=== PATIENT | female | born 1930 | race Caucasian/White ===

== ENCOUNTER 2019-06-10 08:50 | Inpatient (IN) | payer MEDICARE ==
[2019-06-10 13:16] LABS: Basophils % (A) 0 %; Eosinophils # (A) 0.4 k/uL (0-0.7); Eosinophils % (A) 4 %; HCT 36.6 % (34.0-46.0); Lymphocytes # (A) 0.7 k/uL (1.0-4.8); Lymphocytes % (A) 9 %; MCH 30.8 pg (25.0-35.0); MCHC 32.9 g/dL (31.0-37.0); MCV 93.7 fL (80.0-100.0); Monocytes # (A) 0.5 k/uL (0-1.0); Monocytes % (A) 6 %; Neutrophils # (A) 6.9 k/uL (1.3-7.7); Neutrophils % (A) 79 %; Platelet Count 241 k/uL (150-450); RBC 3.91 m/uL (3.80-5.40); RDW 14.7 % (11.5-15.5); WBC 8.7 k/uL (3.8-10.6)
[2019-06-10 13:16] LABS: Glucose,Whole Blood 161 mg/dL (75-99)
[2019-06-10 13:23] LABS: Albumin 3.2 g/dL (3.5-5.0); Calcium 9.1 mg/dL (8.4-10.2); Potassium 4.9 mmol/L (3.5-5.1); Total Bilirubin 0.8 mg/dL (0.2-1.3); Total Protein 5.9 g/dL (6.3-8.2)
--- NOTE | 2019-06-10 13:35 | CT ---
EXAMINATION TYPE: CODE STROKE: CT brain wo contrast DATE OF EXAM: 06/10/2019 COMPARISON: 04/07/2010 INDICATION: Lt sided weakness DLP: 1099.4 mGycm, Automated exposure control for dose reduction was used. CONTRAST: None CT of the brain is performed utilizing 3 mm thick sections through the posterior fossa and 3 mm thick sections through the remaining calvarium. Study is performed within 24 hours of arrival to the hosp [facility]. No abnormal hyperdensity is present to suggest an acute intracranial hemorrhage. No mass lesion is evident. No acute infarcts are evident. There is patchy periventricular white matter hypodensity, likely on th e basis of chronic white matter ischemic change. Ventricles and sulci are prominent for the patient age. Paranasal sinuses and mastoid air cells within the ctkeh-mb-axry are clear. IMPRESSIONS: 1. Atrophy with periventricular white matter ischemic type changes. 2. If symptoms persist, MRI could be performed.
--- NOTE | 2019-06-10 13:53 | P.HPIM ---
History of Present Illness H&P Date: 06/10/19 Chief Complaint: Episodes of Unresponsivness Flory Sims is an 88-year-old female resident of a [place] [facility] care [facility] who was admitted to [facility] with febrile illness, urinary tract infection, dehydration with acute renal failure, and mental status changes, patient was treated with IV Rocephin and IV fluid and she improved significantly however few days ago patient had an episode of unresponsiveness, that lasted several hours patient was not responding to any stimuli including chest rubs, computed tomography scan of the brain was done and did not reveal any significant abnormality, EEG was not done due to lack of neurology coverage at [facility]. Yesterday patient had a second similar episode where patient was an responsive for several hours we try to obtain an EEG however that was not done, at that time patient was started on Keppra due possibility of seizure activity was prolonged postictal state, however no seizure activity was witnessed by any staff. Patient has a known history of diabetes mellitus maintained on glipizide however glucose level was checked several times during these episodes and was within normal limits if not slightly elevated. Today it was possible to transfer her to [facility] where there is an neurologist pre certification specialist. Medications and Allergies Home Medications Medication Instructions Recorded Confirmed Type Acetaminophen [Tylenol] 500 mg PO Q6H PRN 06/10/19 06/10/19 History Aspirin 325 mg PO DAILY 06/10/19 06/10/19 History Furosemide [Lasix] 20 mg PO DAILY 06/10/19 06/10/19 History INSULIN LISPRO (HumaLOG) [humaLOG] See Protocol SQ ACHS 06/10/19 06/10/19 History Ondansetron HCl [Zofran] 8 mg PO TID PRN 06/10/19 06/10/19 History Potassium Chloride [Klor-Con 20] 20 meq PO BID 06/10/19 06/10/19 History Pravastatin Sodium [Pravachol] 40 mg PO DAILY 06/10/19 06/10/19 History cefTRIAXone [Rocephin] 1 gm IV DAILY 06/10/19 06/10/19 History glipiZIDE [Glucotrol] 5 mg PO BID 06/10/19 06/10/19 History hydrALAZINE HCL [Apresoline] 25 mg PO Q8H 06/10/19 06/10/19 History valACYclovir [Valtrex] 500 mg PO Q12H 06/10/19 06/10/19 History Allergies Allergy/AdvReac Type Severity Reaction Status Date / Time No Known Allergies Allergy Verified 06/10/19 12:24 Physical Exam Vitals: Vital Signs Temp Pulse Resp BP Pulse Ox 06/10/19 12:15 98.3 F 96 16 168/72 98 Intake and Output 06/09/19 06/10/19 06/10/19 22:59 06:59 14:59 Other: Weight 63.9 kg In general patient is alert confused in no apparent distress HEENT head normocephalic and atraumatic Neck is supple no JVD no goiter no lymphadenopathy Chest exam reveals a few scattered rhonchi no wheezing Cardiac exam reveals regular heart sounds S1 and S2 no gallops no murmurs Abdomen is soft nontender no organomegaly with normal bowel sounds Extremity exam reveals no edema no cyanosis or clubbing Neurological examination reveals confusion otherwise no gross focal neurological deficit Results CBC & Chem 7: 06/10/19 12:49 06/10/19 12:49 Labs: Abnormal Lab Results - Last 24 Hours (Table) 06/10/19 06/10/19 06/10/19 Range/Units 12:49 12:49 13:13 Lymphocytes # 0.7 L (1.0-4.8) k/uL Glucose 167 H (74-99) mg/dL POC Glucose (mg/dL) 161 H (75-99) mg/dL Total Protein 5.9 L (6.3-8.2) g/dL Albumin 3.2 L (3.5-5.0) g/dL Assessment and Plan Plan: #1 Two prolonged episodes of unresponsiveness lasting several hours each episode, patient is transferred to [facility] will obtain computed tomography scan of the brain and EEG Will consult neurology #2 admitted to [facility] was urinary tract infection Will continue IV Rocephin and recheck urine analysis #3 acute kidney injury improved, kidney function is back to normal with BUN at 10 creatinine at 0.88 #4 underlying history of diabetes mellitus maintained on glipizide, without any recorded episodes of hypoglycemia especially during episodes of unresponsiveness #5 underlying history of hypertension will resume medications and monitor blood pressure closely #6 underlying history of hyperlipidemia At this time awaiting EEG and neurology input Will resume medications and follow closely Recheck urine analysis
[2019-06-10 13:55] LABS: Partial Thromboplastin Time 22.1 sec (22.0-30.0); Prothrombin Time 10.7 sec (9.0-12.0)
[2019-06-10] MEDS ORDERED: ASPIRIN 325 MG TAB PO STA (13:59)
[2019-06-10 14:03] LABS: Creatine Kinase 23 U/L (30-135)
[2019-06-10 14:15] LABS: Creatine Kinase MB 0.7 ng/mL (0.0-2.4); Troponin I <0.012 ng/mL (0.000-0.034)
[2019-06-10] MEDS ORDERED: ONDANSETRON ODT 8 MG TAB.RAPDIS PO PRN (14:41)
[2019-06-10] MEDS ORDERED: ACETAMINOPHEN TAB 500 MG TAB PO PRN (14:41)
[2019-06-10] MEDS ORDERED: cefTRIAXone 1 GM VIAL IVPB SCH (14:45)
[2019-06-10] MEDS ORDERED: hydrALAZINE HCL 20 MG/ML 1 ML VIAL IVP PRN (15:23)
--- NOTE | 2019-06-10 16:16 | EEG ---
ELECTROENCEPHALOGRAM REPORT DATE OF SERVICE: 06/10/2019. DATE OF ADMISSION: 06/10/2019. HISTORY: This is an 88-year-old female who was admitted by transfer from an outside hospital for possible seizures and stroke. The patient was initially admitted for urosepsis but then had altered mental status and was found today to have decreased movement on the right side of her body. Patient was transferred to high level care. The CT scan of the head shows evidence of a meningioma involving the right frontal lobe. No other history is provided. This patient was activated as a Code-stroke due to her symptoms. TECHNICAL REPORT: This is an inpatient EEG performed the [employer] EEG monitor with electrodes placed according to the international 10-20 system and a single EKG channel. Simultaneous video EEG monitoring was performed. This EEG was reviewed in both the longitudinal bipolar, average differential and transverse montages. Hyperventilation was not performed. Photic stimulation was performed. The study begins with the patient having excessive muscle artifact lateralized through the bifrontal electrode placement. The background consists of a low amplitude, low modulated 9 Hz alpha rhythm reaching maximum frequencies at the 10 Hz. At times, excessive generalized beta activity appears superimposed over the background. Increased muscle artifact is also noted with eye opening. Photic stimulation was performed at various flash frequencies and failed to elicit a consistent driving response. At 14:19:27 immediately after photic stimulation, the background becomes attenuated and the frequencies decrease to a theta range of 6 to 7 Hz. This occurs abruptly. Following this at 14:25:31, there is acute abrupt arousal associated with increased motion and movement artifact. Following this, the patient transitions into brief stage 2 sleep which lasts for 34 seconds. This is associated with a further attenuation of the background rhythm, the appearance of increased beta activity anteriorly and centrally and the appearance of synchronous sleep spindles. Stage 2 sleep was brief followed by a return to stage 1 sleep for several minutes followed by abrupt arousal associated with motion movement artifact. Deeper stages of sleep such as slow-wave sleep and rapid eye movement sleep were not achieved. IMPRESSION: This is a normal wake, drowsy and pre-stage 2 EEG study. No abnormalities were noted in the EKG or during photic stimulation. The wake background appears normal for this patient's staged age and the brief sleep noted appeared normal sleep architecture for stage 2 sleep and stage 1 sleep. A normal wake sleep EEG; however, does not rule out an underlying seizure tendency. Correlations are needed and if clinically indicated, a more prolonged overnight study could provide additional information and/or serial EEGs. MMODL / IJN: [id number] /
[2019-06-10] MEDS: hydrALAZINE HCL 25 MG TAB PO SCH ×2 (16:29→23:14)
[2019-06-10] MEDS: SODIUM CHLORIDE 0.9% 1,000 ML IV SCH (16:36)
[2019-06-10] MEDS: levETIRAcetam IV 500 MG in SODIUM CHLORIDE 0.9% 100 ML IVPB SCH (16:37)
[2019-06-10 17:43] LABS: Glucose,Whole Blood 142 mg/dL (75-99)
[2019-06-10] MEDS: INSULIN ASPART (NovoLOG) 100 UNIT/ML VIAL SQ SCH ×2 (18:28→20:38)
--- NOTE | 2019-06-10 19:18 | MR ---
EXAMINATION TYPE: MR brain wo con DATE OF EXAM: 06/10/2019 COMPARISON: Correlation CT 06/10/2019. Old CT 04/07/2010. HISTORY: 88-year-old female CODE STROKE TECHNIQUE: Multiplanar, multisequence images of the brain and brainstem were acquired without IV con trast. Diffusion weighted imaging is performed. FINDINGS: No evidence for acute infarction, hemorrhage, mass effect, midline shift, herniation, effacement of b dajuan cisterns, or extra-axial fluid collection. A 9 mm hypointense extra-axial lesion left paramedian superior convexity corresponds to a calcified e xtra-axial lesion on CT most suggestive of a meningioma. Mild supratentorial volume loss. Secondary mild prominence to the ventricular system. Dominant left vertebral artery. Prominent arachnoid granulations along the posterior cranial fossa. T2/FLAIR weighted sequences show severe confluent right white matter change in both cerebral hemisphe res and also within the mitch. Midline structures demonstrate normal morphology. The craniocervical j unction is normal. Scattered mild mucosal thickening left ethmoid air cells. Globes are intact. IMPRESSION: 1. No acute intracranial abnormality seen. 2. Mild generalized atrophy and severe confluent changes of chronic small vessel ischemic disease. 3. A 9 mm calcified extra-axial lesion along the left paramedian superior convexity suggestive of a s mall meningioma, present back on the 04/07/2010 CT as well.
--- NOTE | 2019-06-10 19:28 | MR ---
EXAMINATION TYPE: MR angio head/neck wo con DATE OF EXAM: 06/10/2019 COMPARISON: Correlation MRI brain same day HISTORY: 88-year-old female CODE STROKE TECHNIQUE: High-resolution 3-D bnih-gl-jizlnk imaging of the [place]. Rotational 3-D reconst ructions generated on a dedicated workstation. Additional 2-D and 3-D jpdq-wy-waxpsu imaging of the c arotid vessels of the neck with 3-D reconstructions. FINDINGS: HEAD: Dominant left vertebral artery. Otherwise, the vertebral and basilar arteries appear patent. Persistent origin right posterior cerebral artery with a hypoplastic P1 segment. Internal carotid arteries are patent. Remainder of the anterior circulation is patent without signifi cant stenosis. No aneurysmal change. NECK: Conventional arch was a branching anatomy. Dominant left vertebral artery. Satisfactory flow related enhancement of both vertebral arteries. Tortuous lower right common carotid artery with retropharyngeal course. Satisfactory flow related within the right common carotid artery. There is some loss of flow-related enhancement at the cervical cranial junction of the right internal carotid artery. Otherwise, remainder of the right internal carotid artery appears patent. Satisfactory flow related enhancement left common carotid artery. There may be mild, less than 40% narrowing within the left carotid bulb. Is seen on the contralateral side, there is focal loss of flow related enhancement at the cervical cr anial junction of the left ICA, refer to series 501 axial images 89 through 92. IMPRESSION: 1. Head: Dominant left vertebral artery. 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 No large vessel intracranial arterial occlusion, significant stenosis, or aneurysmal change see n. 2. Neck: Focal loss of flow related enhancement within the bilateral ICAs at the cervical cranial lucretia ctions. Given the symmetry, skull base artifact is favored over focal severe stenoses. Thin cut CT an giography may be helpful to further evaluate. Otherwise, dominant left vertebral artery. Mild, less t epstein 50% stenosis left carotid bulb.
[2019-06-10 20:20] LABS: Glucose,Whole Blood 171 mg/dL (75-99)
[2019-06-10] MEDS: valACYclovir 500 MG TAB PO SCH (20:44)
[2019-06-10] MEDS: POTASSIUM CHLORIDE ER 20 MEQ TAB.ER PO SCH (20:44)
--- NOTE | 2019-06-10 21:36 | P.CNNES ---
History of Present Illness Consult date: 06/10/19 Reason for Consult: 2 episodes of altered mental status at outside hospital. History of Present Illness: This is a new neurology consult requested for further advice recommendations for a 8-year-old female who was hospitalized at the [facility] last several days for fever UTI and acute kidney injury. She [facility] from [facility] where [facility] and had mental status changes described with her illness. She appeared to improve when she received IV fluids and Rocephin but 48 hours prior to admission she had an episode where she was reported to become unresponsive for several hours but would not even respond to any deep sternal rub in the hospital. A computed tomography scan of the head was obtained which did not show any evidence of an acute ischemic infarct. Request for EEG was made with an outside neurology service however this was not able to take place. Then the day prior to admission the patient had a second episode again of unresponsiveness for several hours as reported. She was started on Keppra with the assumption this could be subclinical seizure activity. During this event was documented at the patient's glucose was normal. Due to there not being availability for neurology on site the patient was transferred to a higher level of care. When the patient arrived she was back to her baseline but there was some concern with the staff that her left side appeared weaker than her right. A code stroke was initiated in the following workup is available now: 1. MRI of the brain did not show any evidence of acute ischemic or hemorrhagic infarct. No intracranial brain mass lesions. There is significant white matter ischemic changes noted. MRA of the brain does not show any evidence of high-grade stenosis only a dominant left vertebral artery. The MRA of the neck shows mild less than 50% stenosis of the left carotid bulb. There does appear to be some focal loss of blood flow with relative enhancement described in the bilateral ICAs cervical junction. This is thought to be artifact versus severe stenosis. However in my opinion a CTA would be warranted if there was concern for high-grade stenosis. The patient also has obtained now EEG since her admission this was interpreted to be a normal wake and very brief drowsy study. No epileptiform activity was noted. A normal wake drowsy EEG however does not preclude an underlying seizure tendency. At the time of this evaluation the patient appears clinically stable with an NIH stroke scale of 1 with some mild weakness noted in the left upper extremity. Review of Systems A 10 point review of systems was obtained with positive pertinent negatives related to history of present illness. At this time is evaluation however the patient was not a very good historian and could not provide much to detail questions she was quite tired. Past Medical History Past Medical History: Diabetes Mellitus, Hypertension, Osteoarthritis (OA), Renal Disease History of Any Multi-Drug Resistant Organisms: Unobtainable Past Surgical History: Hysterectomy Additional Past Surgical History / Comment(s): Back surgery, abdominal surgery Past Anesthesia/Blood Transfusion Reactions: Unable to Obtain Past Psychological History: Unable to Obtain Smoking Status: Unknown if ever smoked - Past Family History Father History Unknown: Yes Mother History Unknown: Yes Medications and Allergies Home Medications Medication Instructions Recorded Confirmed Type Acetaminophen [Tylenol] 500 mg PO Q6H PRN 06/10/19 06/10/19 History Aspirin 325 mg PO DAILY 06/10/19 06/10/19 History Furosemide [Lasix] 20 mg PO DAILY 06/10/19 06/10/19 History INSULIN LISPRO (HumaLOG) [humaLOG] See Protocol SQ ACHS 06/10/19 06/10/19 History Ondansetron HCl [Zofran] 8 mg PO TID PRN 06/10/19 06/10/19 History Potassium Chloride [Klor-Con 20] 20 meq PO BID 06/10/19 06/10/19 History Pravastatin Sodium [Pravachol] 40 mg PO DAILY 06/10/19 06/10/19 History cefTRIAXone [Rocephin] 1 gm IV DAILY 06/10/19 06/10/19 History glipiZIDE [Glucotrol] 5 mg PO BID 06/10/19 06/10/19 History hydrALAZINE HCL [Apresoline] 25 mg PO Q8H 06/10/19 06/10/19 History valACYclovir [Valtrex] 500 mg PO Q12H 06/10/19 06/10/19 History Allergies Allergy/AdvReac Type Severity Reaction Status Date / Time No Known Allergies Allergy Verified 06/10/19 12:24 Physical Examination - Vital Signs Vital Signs: Vital Signs Temp Pulse Pulse Resp BP BP Pulse Ox 06/10/19 20:00 98.4 F 71 18 180/78 99 06/10/19 16:00 98.8 F 87 16 193/89 96 06/10/19 14:55 97.8 F 98 16 178/79 98 06/10/19 14:40 97.8 F 99 16 170/77 98 06/10/19 14:25 97.7 F 76 16 166/72 98 06/10/19 14:10 98.7 F 89 16 183/72 98 06/10/19 13:55 98.6 F 87 16 165/76 98 06/10/19 13:40 98.6 F 98 16 159/76 98 06/10/19 13:25 98.6 F 95 16 164/70 98 06/10/19 13:10 98.6 F 90 16 182/73 98 06/10/19 13:05 96 06/10/19 12:15 98.3 F 96 16 168/72 98 Intake and Output 06/10/19 06/10/19 06/10/19 06:59 14:59 22:59 Intake Total 330 Balance 330 Intake: IV 210 Invasive Line 1 10 Sodium Chloride 0.9% 1, 200 000 ml @ 50 mls/hr IV . Q20H NATALYA Rx#:[id number] Oral 120 Other: Voiding Method Diaper Diaper Incontinent Incontinent # Voids 2 Weight 63.9 kg Examination was somewhat limited due to isolation contact. General appearance: Alert well-nourished no apparent distress. H ENT: Clear sclera clear oropharynx neck appears supple. Extremities: No edema noted in the hands or feet. Skin: No rash bruising or petechia noted. There are some herpetic lesions across the chest though. Neurological exam Patient mental status patient is awake alert she is oriented to month age. Her speech is fluent. Her affect appears appropriate. Cranial nerve examination: Extraocular movements are full. There is no nystagmus noted on vertical horizontal gaze. Face appears symmetric. Palate elevates symmetrically. Cranial nerve VIII appears intact by clinical observation. Motor examination patient is able to move all 4 extremities equally. She is so mewhat weak generally generalized. Patient gives good effort with -5 over 5 strength throughout. Pronator drift is negative. No fasciculations or tremor noted. Deep tendon reflexes deferred. Sensory examination grossly intact to light touch throughout. Coordination testing: Isyjkx-sj-mbpb testing is intact. Gait examination deferred. Results - Laboratory Findings CBC and BMP: 06/10/19 12:49 06/10/19 12:49 Abnormal Lab Findings: Abnormal Labs 06/10/19 06/10/19 06/10/19 12:49 12:49 13:13 Lymphocytes # 0.7 L Glucose 167 H POC Glucose (mg/dL) 161 H Total Creatine Kinase Total Protein 5.9 L Albumin 3.2 L Prolactin 06/10/19 06/10/19 06/10/19 13:30 13:30 17:41 Lymphocytes # Glucose POC Glucose (mg/dL) 142 H Total Creatine Kinase 23 L Total Protein Albumin Prolactin 47.9 H 06/10/19 20:18 Lymphocytes # Glucose POC Glucose (mg/dL) 171 H Total Creatine Kinase Total Protein Albumin Prolactin - Diagnostic Findings EKG: report reviewed Chest x-ray: report reviewed Additional findings: Computed tomography scan of the head. EEG. MRI of the brain and MRA of the head and neck reviewed. Assessment and Plan Assessment: This is a neurology consult requested for an 88-year-old female who was transferred in from [facility] for higher level of neurological care. The patient was admitted with fever urinary tract infection acute herpetic outbreak and mental status changes. She apparently was improving while on Rocephin and fluids but had 2 bouts of prolonged unresponsiveness 48 hours prior to admission. The patient was started on Keppra empirically in the event they were subclinical seizures. Today her workup reveals a negative computed tomography scan of the head and MRI of the brain for any acute ischemic or hemorrhagic infarct or structural mass lesion. The MRA of the head does show focal loss of flow in relative with enhancement within the bilateral intracranial arteries. However there is concern this could be artifact but not completely ruled out. The MRA of the neck does not show any evidence of high- grade stenosis. 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 Examination today reveals a pleasant female who is alert and oriented to time place and person. She is somewhat weak but this may be in proportion to her her age. There is no clear focal weakness noted at this time. The episodes of prolonged unresponsiveness could be cardiac related to atrial fibrillation. I do not see nothing specific in the notes regarding Holter monitor assessment. I would be recommending a full cardiology workup for this female with these questionable syncopal episodes. In addition with an active herpetic infection she could be running the risk of developing a herpetic encephalitis. This should be further evaluated with an LP if another episode occurs and she becomes febrile again. Summary 1. Elderly female with fever or UTI acute kidney injury and mental status changes initially improving but then developing 2 episodes of prolonged altered mental status of unclear etiology. 2. Neuro imaging studies do not show any evidence of acute ischemic or subacute infarct. 3. MRA of the brain reveals no evidence of high-grade stenosis. 4. MRA of the neck however does show some focal loss of flow with relative enhancement within the bilateral internal carotid arteries at the cervical junction this could be artifact versus severe stenosis. Dominant left vertebral artery present. There is less than 50% stenosis at the left carotid bulb. 5. Normal wake and brief drowsy EEG 6. Nonfocal neurological exam with normal mentation. Recommendations: 1. Continue with neurometabolic workup: Evaluate thyroid function, rule out anemia, B12 folate level. Ammonia level 2. Syncope workup: Cardiac echo and duplex carotid ultrasound. Recommend a CTA of the head and neck to further confirm that there is not high-grade stenosis at the bilateral internal carotid arteries lying at the cervical junction. 3. Continue with Keppra. Once patient is confirms passing swallow evaluation may change to oral solution rather than tablets as this is easier to swallow. Close monitoring of creatinine while on Keppra since it is 100% cleared by kidney. 500 mg every 12 is considered renal dosing. 4. If patient has any clinical deterioration neurologically and/or continued episodes would recommend a lumbar puncture to rule out herpes encephalitis and changed to acyclovir IV for herpes simplex and signed up encephalitis protocol. 5. Physical therapy evaluation to further assess weakness. 6. Blood pressure management: Maintain systolic blood pressure less than 140 and diastolic blood pressure less than 90. Strict monitoring of sugar levels maintaining normal glycemic state. This patient's prognosis remains guarded. Further recommendations were made as this case evolves. There will not be neurology on site in the Hospital this weekend. There will however be available neurology services via telemedicine. Dr. Gonzalez with neurology will be in on Thursday morning.
[2019-06-10 22:30] LABS: Cholesterol 92 mg/dL (<200); HDL Cholesterol 39 mg/dL (40-60); LDL Cholesterol,Calculated 35 mg/dL (0-99); Triglycerides 90 mg/dL (<150)
[2019-06-10 22:55] LABS: C Reactive Protein <5.0 mg/L (<10.0)
[2019-06-11] MEDS: hydrALAZINE HCL 25 MG TAB PO SCH ×3 (04:10→22:23)
[2019-06-11] MEDS: levETIRAcetam IV 500 MG in SODIUM CHLORIDE 0.9% 100 ML IVPB SCH ×2 (04:10→15:33)
[2019-06-11 06:19] LABS: Glucose,Whole Blood 136 mg/dL (75-99)
[2019-06-11] MEDS: INSULIN ASPART (NovoLOG) 100 UNIT/ML VIAL SQ SCH ×4 (06:43→20:49)
--- NOTE | 2019-06-11 08:56 | US ---
EXAMINATION TYPE: US carotid duplex BILAT DATE OF EXAM: 06/11/2019 COMPARISON: CLINICAL HISTORY: AMS syncope. altered mental status EXAM MEASUREMENTS: RIGHT: Peak Systolic Velocity (PSV) cm/sec ----- Right CCA: 63.6 ----- Right ICA: 68.8 ----- Right ECA: 90.0 ICA/CCA ratio: 1.1 RIGHT: End Diastole cm/sec ----- Right CCA: 0.0 ----- Right ICA: 8.6 ----- Right ECA: 0.0 LEFT: Peak Systolic Velocity (PSV) cm/sec ----- Left CCA: 58.0 ----- Left ICA: 111.3 ----- Left ECA: 100.0 ICA/CCA ratio: 1.9 LEFT: End Diastole cm/sec ----- Left CCA: 0.0 ----- Left ICA: 6.3 ----- Left ECA: 0.0 VERTEBRALS (direction of flow): Right Vertebral: Antegrade Left Vertebral: Antegrade Rhythm: Normal Plaque visualized in bilateral bulbs. No elevated velocities or significant stenosis. No wall thicke iva. IMPRESSION: I DO NOT SEE EVIDENCE OF A HEMODYNAMICALLY SIGNIFICANT STENOSIS IN EITHER CAROTID SYSTEM. Criteria for Assigning % of Stenosis / Diameter reduction (Estimation based on the indirect measurements of the internal carotid artery velocities (ICA PSV). 1. Normal (no stenosis)=ICA PSV < 125 cm/s: ratio < 2.0: ICA EDV<40 cm/s. 2. Less than 50% stenosis=ICA PSV < 125 cm/s: ratio < 2.0: ICA EDV<40 cm/s. 3. 50 to 69% stenosis=ICA PSV of 125 to 230 cm/s: ration 2.0 ? 4.0: ICA EDV 40-100 cm/s. 4. Greater than 70% stenosis to near occlusion= ICA PSV > 230 cm/s: ratio > 4.0: ICA EDV > 100 cm/s. 5. Near occlusion= ICA PSV velocities may be low or undetectable: variable ratio and ICA EDV. 6. Total occlusion=unable to detect flow.
[2019-06-11] MEDS: ASPIRIN 325 MG TAB PO SCH (09:10)
[2019-06-11] MEDS: valACYclovir 500 MG TAB PO SCH ×2 (09:10→22:24)
[2019-06-11] MEDS: PRAVASTATIN SODIUM 40 MG TAB PO SCH (09:10)
[2019-06-11] MEDS: POTASSIUM CHLORIDE ER 20 MEQ TAB.ER PO SCH ×2 (09:10→22:23)
[2019-06-11] MEDS: SODIUM CHLORIDE 0.9% 1,000 ML IV SCH (09:10)
[2019-06-11 11:32] LABS: % Iron Saturation 21.52 (12.00-45.00); Iron 51 ug/dL (50-170); Total Iron Binding Capacity 237 ug/dL (228-460)
[2019-06-11 11:42] LABS: Ferritin 72.5 ng/mL (10.0-291.0)
[2019-06-11 11:52] LABS: Glucose,Whole Blood 184 mg/dL (75-99)
[2019-06-11 11:53] LABS: Folate, Serum 7.2 ng/mL
[2019-06-11 12:10] LABS: Vitamin B12 >4000.0 pg/mL (211-911)
--- NOTE | 2019-06-11 13:00 | ECHOF ---
Referral Reason:AMS syncope MEASUREMENTS -------- HEIGHT: 162.6 cm WEIGHT: 64.9 kg BP: 179/81 RVIDd: 2.6 cm (< 3.3) IVSd: 1.5 cm (0.6 - 1.1) LVIDd: 3.1 cm (3.9 - 5.3) LVPWd: 1.4 cm (0.6 - 1.1) IVSs: 1.7 cm LVIDs: 2.0 cm LVPWs: 1.7 cm LA Diam: 3.6 cm (2.7 - 3.8) LAESV Index (A-L): 27.71 ml/m Ao Diam: 2.9 cm (2.0 - 3.7) AV Cusp: 2.3 cm (1.5 - 2.6) MV EXCURSION: 20.043 mm (> 18.000) MV EF SLOPE: 96 mm/s (70 - 150) EPSS: 0.5 cm MV E Edmundo: 0.79 m/s MV DecT: 122 ms MV A Edmundo: 1.43 m/s MV E/A Ratio: 0.55 RAP: 5.00 mmHg RVSP: 34.93 mmHg TAPSE: 15.86 mm FINDINGS -------- Sinus rhythm. This was a technically adequate study. The left ventricular size is normal. There is moderate concentric left ventricular hypertrophy. O verall left ventricular systolic function is normal with, an EF between 60 - 65 %. The right ventricle is normal in size. Normal LA size by volume 22+/-6 ml/m2. The right atrium is normal in size. Interatrial and interventricular septum intact. The aortic valve is trileaflet and appears structurally normal. The mitral valve is normal. Mild tricuspid regurgitation present. There is mild pulmonary hypertension. The right ventricular systolic pressure, as measured by Doppler, is 34.93mmHg. Trace/mild (physiologic) pulmonic regurgitation. The aortic root size is normal. IVC Not well visulized. There is a small pericardial effusion located near the left ventricle. CONCLUSIONS -------- 1. Sinus rhythm. 2. This was a technically adequate study. 3. The left ventricular size is normal. 4. There is moderate concentric left ventricular hypertrophy. 5. Overall left ventricular systolic function is normal with, an EF between 60 - 65 %. 6. The right ventricle is normal in size. 7. Normal LA size by volume 22+/-6 ml/m2. 8. The right atrium is normal in size. 9. Interatrial and interventricular septum intact. 10. The aortic valve is trileaflet and appears structurally normal. 11. The mitral valve is normal. 12. Mild tricuspid regurgitation present. 13. There is mild pulmonary hypertension. 14. The right ventricular systolic pressure, as measured by Doppler, is 34.93mmHg. 15. Trace/mild (physiologic) pulmonic regurgitation. 16. The aortic root size is normal. 17. IVC Not well visulized. 18. There is a small pericardial effusion located near the left ventricle. FUEL CELL ASSEMBLER: Alta Jenkins RDCS
--- NOTE | 2019-06-11 15:11 | P.PN ---
Subjective Progress Note Date: 06/11/19 Flory Sims is an 88-year-old female resident of a senior living who was admitted to [facility] with febrile illness, urinary tract infection, dehydration with acute renal failure, and mental status changes, patient was treated with IV Rocephin and IV fluid and she improved significantly however few days ago patient had an episode of unresponsiveness, that lasted several hours patient was not responding to any stimuli including chest rubs, computed tomography scan of the brain was done and did not reveal any significant abnormality, EEG was not done due to lack of neurology coverage at [facility]. Yesterday patient had a second similar episode where patient was an responsive for several hours we try to obtain an EEG however that was not done, at that time patient was started on Keppra due possibility of seizure activity was prolonged postictal state, however no seizure activity was witnessed by any staff. Patient has a known history of diabetes mellitus maintained on glipizide however glucose level was checked several times during these episodes and was within normal limits if not slightly elevated. 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 On 06/11/2019 patient was seen and examined on the medical floor she is alert slightly confused in no apparent distress there is no fever or chills no head ache or dizziness no chest pain no shortness of breath no cough no nausea or vomiting no abdominal pain no diarrhea and no urinary symptoms, no new episodes of loss of consciousness or unresponsiveness Objective - Vital Signs Vital signs: Vital Signs Temp 97.9 F 06/11/19 12:10 Pulse 101 H 06/11/19 12:10 Resp 18 06/11/19 12:10 BP 166/77 06/11/19 12:10 Pulse Ox 98 06/11/19 12:10 Intake & Output 06/10/19 06/11/19 06/11/19 18:59 06:59 18:59 Intake Total 330 120 Output Total 350 300 Balance 330 -350 -180 Weight 63.9 kg 65 kg Intake: IV 210 Invasive Line 1 10 Sodium Chloride 0.9% 1, 200 000 ml @ 50 mls/hr IV . Q20H [facility] Rx#:[id number] Oral 120 120 Output: Urine 350 300 Other: Voiding Method Diaper Bedpan Incontinent Diaper Incontinent # Voids 2 1 1 - Exam In general patient is alert confused in no apparent distress HEENT head normocephalic and atraumatic Neck is supple no JVD no goiter no lymphadenopathy Chest exam reveals a few scattered rhonchi no wheezing Cardiac exam reveals regular heart sounds S1 and S2 no gallops no murmurs Abdomen is soft nontender no organomegaly with normal bowel sounds Extremity exam reveals no edema no cyanosis or clubbing Neurological examination reveals confusion otherwise no gross focal neurological deficit - Labs CBC & Chem 7: 06/10/19 12:49 06/10/19 12:49 Labs: Abnormal Lab Results - Last 24 Hours (Table) 06/10/19 06/10/19 06/10/19 Range/Units 13:30 17:41 20:18 POC Glucose (mg/dL) 142 H 171 H (75-99) mg/dL HDL Cholesterol (40-60) mg/dL Vitamin B12 (211-911) pg/mL Prolactin 47.9 H (2.8-29.2) ng/mL 06/10/19 06/11/19 06/11/19 Range/Units 22:06 06:17 11:41 POC Glucose (mg/dL) 136 H 184 H (75-99) mg/dL HDL Cholesterol 39 L (40-60) mg/dL Vitamin B12 >4000.0 H (211-911) pg/mL Prolactin (2.8-29.2) ng/mL Assessment and Plan Plan: #1 Two prolonged episodes of unresponsiveness lasting several hours each episode, patient is transferred to [facility] will obtain computed tomography scan of the brain and EEG Will consult neurology #2 admitted to [facility] was urinary tract infection Will continue IV Rocephin and recheck urine analysis #3 acute kidney injury improved, kidney function is back to normal with BUN at 10 creatinine at 0.88 #4 underlying history of diabetes mellitus maintained on glipizide, without any recorded episodes of hypoglycemia especially during episodes of unresponsiveness #5 underlying history of hypertension will resume medications and monitor blood pressure closely #6 underlying history of hyperlipidemia At this time EEG and neurology consult reviewed patient continued on Keppra will follow in a.m. Will resume medications and follow closely Recheck urine analysis
[2019-06-11 16:47] LABS: Glucose,Whole Blood 246 mg/dL (75-99)
[2019-06-11 20:02] LABS: Glucose,Whole Blood 150 mg/dL (75-99)
[2019-06-12] MEDS: levETIRAcetam IV 500 MG in SODIUM CHLORIDE 0.9% 100 ML IVPB SCH ×2 (03:10→16:16)
[2019-06-12 06:20] LABS: Glucose,Whole Blood 146 mg/dL (75-99)
[2019-06-12] MEDS: INSULIN ASPART (NovoLOG) 100 UNIT/ML VIAL SQ SCH ×4 (06:21→20:48)
[2019-06-12] MEDS: SODIUM CHLORIDE 0.9% 1,000 ML IV SCH (06:24)
[2019-06-12] MEDS: hydrALAZINE HCL 25 MG TAB PO SCH ×3 (06:24→23:11)
[2019-06-12 06:47] LABS: Basophils % (A) 0 %; Eosinophils # (A) 0.3 k/uL (0-0.7); Eosinophils % (A) 4 %; HCT 32.2 % (34.0-46.0); HGB 10.6 gm/dL (11.4-16.0); Lymphocytes # (A) 0.8 k/uL (1.0-4.8); Lymphocytes % (A) 9 %; MCHC 32.8 g/dL (31.0-37.0); MCV 94.5 fL (80.0-100.0); Mean Platelet Volume 7.7; Monocytes # (A) 0.6 k/uL (0-1.0); Monocytes % (A) 6 %; Neutrophils # (A) 7.4 k/uL (1.3-7.7); Neutrophils % (A) 80 %; Platelet Count 224 k/uL (150-450); RBC 3.41 m/uL (3.80-5.40); RDW 15.2 % (11.5-15.5); WBC 9.3 k/uL (3.8-10.6)
[2019-06-12 06:54] LABS: Albumin 2.8 g/dL (3.5-5.0); Calcium 8.4 mg/dL (8.4-10.2); Potassium 4.2 mmol/L (3.5-5.1); Total Bilirubin 0.7 mg/dL (0.2-1.3); Total Protein 5.2 g/dL (6.3-8.2)
[2019-06-12] MEDS: POTASSIUM CHLORIDE ER 20 MEQ TAB.ER PO SCH ×2 (08:01→23:11)
[2019-06-12] MEDS: ASPIRIN 325 MG TAB PO SCH (08:01)
[2019-06-12] MEDS: PRAVASTATIN SODIUM 40 MG TAB PO SCH (08:01)
[2019-06-12] MEDS: valACYclovir 500 MG TAB PO SCH ×2 (08:01→23:11)
--- NOTE | 2019-06-12 11:59 | P.PN ---
Subjective Progress Note Date: 06/12/19 Flory Sims is an 88-year-old female resident of a group home who was admitted to [facility] with febrile illness, urinary tract infection, dehydration with acute renal failure, and mental status changes, patient was treated with IV Rocephin and IV fluid and she improved significantly however few days ago patient had an episode of unresponsiveness, that lasted several hours patient was not responding to any stimuli including chest rubs, computed tomography scan of the brain was done and did not reveal any significant abnormality, EEG was not done due to lack of neurology coverage at [facility]. Yesterday patient had a second similar episode where patient was an responsive for several hours we try to obtain an EEG however that was not done, at that time patient was started on Keppra due possibility of seizure activity was prolonged postictal state, however no seizure activity was witnessed by any staff. Patient has a known history of diabetes mellitus maintained on glipizide however glucose level was checked several times during these episodes and was within normal limits if not slightly elevated. 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 On 06/11/2019 patient was seen and examined on the medical floor she is alert slightly confused in no apparent distress there is no fever or chills no head ache or dizziness no chest pain no shortness of breath no cough no nausea or vomiting no abdominal pain no diarrhea and no urinary symptoms, no new episodes of loss of consciousness or unresponsiveness. On 06/12/2019 patient was seen and examined on the medical floor she is doing better today she is more alert and oriented she is answering questions appropriately she has been able to walk to the bathroom with help and with a walker she denies any complaints at this time nurse reports no complaints and no new episodes of unresponsiveness. Objective - Vital Signs Vital signs: Vital Signs Temp 97.7 F 06/12/19 08:00 Pulse 109 H 06/12/19 08:00 Resp 18 06/12/19 08:00 BP 140/65 06/12/19 08:00 Pulse Ox 97 06/12/19 08:00 Intake & Output 06/11/19 06/12/19 06/12/19 18:59 06:59 18:59 Intake Total 690 240 Output Total 800 Balance -110 240 Weight 64.5 kg Intake: IV 400 Sodium Chloride 0.9% 1, 400 000 ml @ 50 mls/hr IV . Q20H [facility] Rx#:[id number] Intake, IV Titration 50 Amount cefTRIAXone 1 gm In 50 Sodium Chloride 0.9% 50 ml @ 100 mls/hr IVPB Q24HR [facility] Rx#:[id number] Oral 240 240 Output: Urine 800 Other: Voiding Method Bedpan Diaper Incontinent # Voids 1 1 - Exam In general patient is alert confused in no apparent distress HEENT head normocephalic and atraumatic Neck is supple no JVD no goiter no lymphadenopathy Chest exam reveals a few scattered rhonchi no wheezing Cardiac exam reveals regular heart sounds S1 and S2 no gallops no murmurs Abdomen is soft nontender no organomegaly with normal bowel sounds Extremity exam reveals no edema no cyanosis or clubbing Neurological examination reveals confusion otherwise no gross focal neurological deficit - Labs CBC & Chem 7: 06/12/19 05:46 06/12/19 05:46 Labs: Abnormal Lab Results - Last 24 Hours (Table) 06/10/19 06/11/19 06/11/19 Range/Units 22:06 16:44 20:00 RBC (3.80-5.40) m/uL Hgb (11.4-16.0) gm/dL Hct (34.0-46.0) % Lymphocytes # (1.0-4.8) k/uL Chloride (98-107) mmol/L Carbon Dioxide (22-30) mmol/L Glucose (74-99) mg/dL POC Glucose (mg/dL) 246 H 150 H (75-99) mg/dL Total Protein (6.3-8.2) g/dL Albumin (3.5-5.0) g/dL Vitamin B12 >4000.0 H (211-911) pg/mL 06/12/19 06/12/19 06/12/19 Range/Units 05:46 05:46 06:18 RBC 3.41 L (3.80-5.40) m/uL Hgb 10.6 L (11.4-16.0) gm/dL Hct 32.2 L (34.0-46.0) % Lymphocytes # 0.8 L (1.0-4.8) k/uL Chloride 110 H (98-107) mmol/L Carbon Dioxide 21 L (22-30) mmol/L Glucose 136 H (74-99) mg/dL POC Glucose (mg/dL) 146 H (75-99) mg/dL Total Protein 5.2 L (6.3-8.2) g/dL Albumin 2.8 L (3.5-5.0) g/dL Vitamin B12 (211-911) pg/mL Assessment and Plan Plan: #1 Two prolonged episodes of unresponsiveness lasting several hours each episode, patient is transferred to [facility] will obtain computed tomography scan of the brain and EEG Will consult neurology #2 admitted to [facility] was urinary tract infection Will continue IV Rocephin and recheck urine analysis #3 acute kidney injury improved, kidney function is back to normal with BUN at 10 creatinine at 0.88 #4 underlying history of diabetes mellitus maintained on glipizide, without any recorded episodes of hypoglycemia especially during episodes of unresponsiveness #5 underlying history of hypertension will resume medications and monitor blood pressure closely #6 underlying history of hyperlipidemia At this time EEG and neurology consult reviewed patient continued on Keppra MRI report reviewed awaiting further input from neurology If stable possible transfer back to group home in a.m.
[2019-06-12 12:09] LABS: Glucose,Whole Blood 145 mg/dL (75-99)
[2019-06-12 16:57] LABS: Glucose,Whole Blood 138 mg/dL (75-99)
[2019-06-12 20:36] LABS: Glucose,Whole Blood 152 mg/dL (75-99)
[2019-06-13] MEDS: levETIRAcetam IV 500 MG in SODIUM CHLORIDE 0.9% 100 ML IVPB SCH (04:24)
[2019-06-13] MEDS: SODIUM CHLORIDE 0.9% 1,000 ML IV SCH (04:28)
[2019-06-13 06:27] LABS: Glucose,Whole Blood 125 mg/dL (75-99)
[2019-06-13] MEDS: INSULIN ASPART (NovoLOG) 100 UNIT/ML VIAL SQ SCH ×2 (06:30→13:03)
[2019-06-13] MEDS: hydrALAZINE HCL 25 MG TAB PO SCH ×2 (06:33→13:11)
[2019-06-13 07:08] LABS: Basophils % (A) 0 %; Eosinophils # (A) 0.3 k/uL (0-0.7); Eosinophils % (A) 4 %; HCT 31.8 % (34.0-46.0); HGB 10.3 gm/dL (11.4-16.0); Lymphocytes # (A) 0.6 k/uL (1.0-4.8); Lymphocytes % (A) 7 %; MCH 30.6 pg (25.0-35.0); MCHC 32.4 g/dL (31.0-37.0); MCV 94.5 fL (80.0-100.0); Mean Platelet Volume 7.6; Monocytes # (A) 0.6 k/uL (0-1.0); Monocytes % (A) 8 %; Neutrophils # (A) 6.4 k/uL (1.3-7.7); Neutrophils % (A) 79 %; Platelet Count 233 k/uL (150-450); RBC 3.37 m/uL (3.80-5.40); RDW 15.4 % (11.5-15.5); WBC 8.2 k/uL (3.8-10.6)
[2019-06-13 07:33] LABS: Albumin 2.7 g/dL (3.5-5.0); Calcium 8.4 mg/dL (8.4-10.2); Potassium 4.2 mmol/L (3.5-5.1); Total Bilirubin 0.7 mg/dL (0.2-1.3); Total Protein 5.2 g/dL (6.3-8.2)
[2019-06-13] MEDS: POTASSIUM CHLORIDE ER 20 MEQ TAB.ER PO SCH (11:06)
[2019-06-13] MEDS: PRAVASTATIN SODIUM 40 MG TAB PO SCH (11:06)
[2019-06-13] MEDS: valACYclovir 500 MG TAB PO SCH (11:06)
[2019-06-13] MEDS: ASPIRIN 325 MG TAB PO SCH (11:06)
[2019-06-13 11:17] LABS: Glucose,Whole Blood 157 mg/dL (75-99)
[2019-06-13 13:14] VITALS: TEMP 97.7
[2019-06-13 13:16] VITALS: BP 210/86; PULSE 86; RESP 17
--- NOTE | 2019-06-13 15:09 | P.PN ---
Subjective Progress Note Date: 06/13/19 Patient initially seen by Dr. Lopez. Refer to her note for details. Patient is an 88-year-old female resident of longterm, admitted to [facility] with cerebral illness, UTI and dehydration and acute renal failure and mental status change. Patient was treated with IV Rocephin and IV fluids. She had episodes of unresponsiveness (x2), that lasted several hours patient was not responding to any stimuli including chest rubs. CT head negative. Patient was transferred to [facility] on 06/10/2019. Patient was empirically placed on Keppra 500 mg twice a day. Patient has history of diabetes. Patient's blood pressure is 210/86 in the right arm, 197/87 in the left arm. Her blood pressure on arrival at [facility] was 168/72. Patient is doing much better. She is more alert and awake. She is slightly slow mentation, but that probably is her baseline. She has not had any further episodes of unresponsiveness. Patient had a normal carotid Doppler. 2-D echo showed sinus rhythm. EF is 60- 65%. Normal left atrial size. MRA of the neck showed focal loss of flow related enhancement within bilateral ICAs at the cervical cranial junctions. Given the symmetry, skull base artifact is favored over focal severe stenosis. CTA was recommended. Dominant left vertebral artery. CTA of head showed dominant left vertebral artery. 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 No large vessel intercranial arterial occlusion, significant stenosis or aneurysmal change. MRI of the brain showed no acute process. Mild generalized atrophy and severe confluent changes of chronic small vessel ischemic disease. A 9 mm calcified extra-axial lesion along the left paramedian. Convexity suggestive of small meningioma. Patient's B12 is > 4000, folate 7.2 TSH is normal. Prolactin elevated 47.9. Liver panel normal. Hemoglobin A1c 7.4. Patient's EEG showed normal awake drowsy and pre-stage II sleep EEG. No epileptiform abnormalities were seen. Objective - Vital Signs Vital signs: Vital Signs Temp 97.7 F 06/13/19 08:00 Pulse 86 06/13/19 12:00 Resp 17 06/13/19 12:00 BP 210/86 06/13/19 12:00 Pulse Ox 99 06/13/19 12:00 Intake & Output 06/12/19 06/13/19 06/13/19 18:59 06:59 18:59 Intake Total 360 600 Output Total 500 1600 1150 Balance -140 -1600 -550 Weight 64.9 kg Intake: Oral 360 600 Output: Urine 500 1600 1150 Other: Voiding Method Bedpan Diaper Incontinent # Voids 1 - Exam Patient at present is alert and awake, slightly slow mentation but his baseline. She is fully oriented, knows that she is in [facility] and that it is June 2019 and name of the current president. She denies headache. No pronator drift. Speech is clear. No facial droop. Visual soto are full. No ataxia. - Labs CBC & Chem 7: 06/13/19 06:19 06/13/19 06:19 Labs: Abnormal Lab Results - Last 24 Hours (Table) 06/12/19 06/12/19 06/13/19 Range/Units 16:56 20:34 06:19 RBC 3.37 L (3.80-5.40) m/uL Hgb 10.3 L (11.4-16.0) gm/dL Hct 31.8 L (34.0-46.0) % Lymphocytes # 0.6 L (1.0-4.8) k/uL Chloride (98-107) mmol/L BUN (7-17) mg/dL Glucose (74-99) mg/dL POC Glucose (mg/dL) 138 H 152 H (75-99) mg/dL Total Protein (6.3-8.2) g/dL Albumin (3.5-5.0) g/dL 06/13/19 06/13/19 06/13/19 Range/Units 06:19 06:24 11:16 RBC (3.80-5.40) m/uL Hgb (11.4-16.0) gm/dL Hct (34.0-46.0) % Lymphocytes # (1.0-4.8) k/uL Chloride 109 H (98-107) mmol/L BUN 5 L (7-17) mg/dL Glucose 129 H (74-99) mg/dL POC Glucose (mg/dL) 125 H 157 H (75-99) mg/dL Total Protein 5.2 L (6.3-8.2) g/dL Albumin 2.7 L (3.5-5.0) g/dL Assessment and Plan Assessment: * Altered mental status, likely related to toxic metabolic encephalopathy. * 2 isolated episodes of prolonged unresponsiveness, unclear etiology. No epileptiform activity noted on the EEG. MRI of the brain and MRA negative. * Acute UTI. * Acute kidney injury, improved * Diabetes * Hypertension * Hyperlipidemia Plan: * All neurological workup negative. * Patient is currently maintained on Keppra 500 mg twice a day. Continue same dose of Keppra for now. * May follow up with neurologist locally as outpatient. * Suggest outpatient prolonged EEG. If negative, may slowly wean off Keppra. * Continue aspirin 325 mg and Lipitor. * Neurology will sign off. Please call neurology if any other concerns.
--- NOTE | 2019-06-13 15:22 | P.DS ---
Providers Date of admission: 06/10/19 08:50 Expected date of discharge: 06/13/19 Attending physician: Yeny Fenton Consults: 06/10/19 12:25 Consult Physician Stat Consulting Provider: Edna Lopez Reason/Comments: Possible seizure activity Do you want consulting provider notified?: Yes Placement Type Exists?: Yes Primary care physician: JENNA Manrique Hospital Course: Diagnosis on discharge: #1 Two prolonged episodes of unresponsiveness lasting several hours each episode, patient is transferred to [facility] will obtain computed tomography scan of the brain and EEG Will consult neurology #2 admitted to [facility] was urinary tract infection Will continue IV Rocephin. No need for further antibiotic as outpatient patient received full course of antibiotic during this admission #3 acute kidney injury improved, kidney function is back to normal with BUN at 10 creatinine at 0.88 #4 underlying history of diabetes mellitus maintained on glipizide, without any recorded episodes of hypoglycemia especially during episodes of unresponsiveness #5 underlying history of hypertension, not well controlled amlodipine 2.5 mg once daily was added to her regimen #6 underlying history of hyperlipidemia Hospital course: Flory Sims is an 88-year-old female resident of a long-term who was admitted to [facility] with febrile illness, urinary tract infection, dehydration with acute renal failure, and mental status changes, patient was treated with IV Rocephin and IV fluid and she improved significantly however few days ago patient had an episode of unresponsiveness, that lasted several hours patient was not responding to any stimuli including chest rubs, computed tomography scan of the brain was done and did not reveal any significant abnormality, EEG was not done due to lack of neurology coverage at [facility]. Yesterday patient had a second similar episode where patient was an responsive for several hours we try to obtain an EEG however that was not done, at that time patient was started on Keppra due possibility of seizure activity was prolonged postictal state, however no seizure activity was witnessed by any staff. Patient has a known history of diabetes mellitus maintained on glipizide however glucose level was checked several times during these episodes and was within normal limits if not slightly elevated. 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 On 06/11/2019 patient was seen and examined on the medical floor she is alert slightly confused in no apparent distress there is no fever or chills no headache or dizziness no chest pain no shortness of breath no cough no nausea or vomiting no abdominal pain no diarrhea and no urinary symptoms, no new episodes of loss of consciousness or unresponsiveness. On 06/12/2019 patient was seen and examined on the medical floor she is doing better today she is more alert and oriented she is answering questions appropriately she has been able to walk to the bathroom with help and with a walker she denies any complaints at this time nurse reports no complaints and no new episodes of unresponsiveness. On 06/13/2019 patient was seen and examined on the medical floor she is alert and oriented in no apparent distress no new episodes of unresponsiveness, mental status is back to her baseline, neurology consult reviewed no new recommendation, at this time patient will be discharged back to long-term, no need for any further antibiotics patient received a full course of antibiotic during her hospitalization, blood pressure was elevated and Norvasc 2.5 mg is added to her regimen once daily, may adjust further at the long-term if the blood pressure remains elevated continue with hydralazine 25 mg 3 times daily, in regard to 2 episodes of prolonged unresponsiveness patient was started on Keppra 500 mg twice daily will be monitored closely and will need follow-up with neurology as outpatient Plan - Discharge Summary New Discharge Prescriptions: New levETIRAcetam [Keppra] 500 mg PO Q12HR 30 Days #60 tab amLODIPine [Norvasc] 2.5 mg PO DAILY 30 Days #30 tablet Continue Potassium Chloride [Klor-Con 20] 20 meq PO BID Furosemide [Lasix] 20 mg PO DAILY INSULIN LISPRO (HumaLOG) [humaLOG] See Protocol SQ ACHS hydrALAZINE HCL [Apresoline] 25 mg PO Q8H Aspirin 325 mg PO DAILY Acetaminophen [Tylenol] 500 mg PO Q6H PRN PRN Reason: pain/fever Pravastatin Sodium [Pravachol] 40 mg PO DAILY glipiZIDE [Glucotrol] 5 mg PO BID Discontinued cefTRIAXone [Rocephin] 1 gm IV DAILY Ondansetron HCl [Zofran] 8 mg PO TID PRN PRN Reason: Nausea And Vomiting valACYclovir [Valtrex] 500 mg PO Q12H Discharge Medication List Acetaminophen [Tylenol] 500 mg PO Q6H PRN 06/10/19 [History] Aspirin 325 mg PO DAILY 06/10/19 [History] Furosemide [Lasix] 20 mg PO DAILY 06/10/19 [History] INSULIN LISPRO (HumaLOG) [humaLOG] See Protocol SQ ACHS 06/10/19 [History] Potassium Chloride [Klor-Con 20] 20 meq PO BID 06/10/19 [History] Pravastatin Sodium [Pravachol] 40 mg PO DAILY 06/10/19 [History] glipiZIDE [Glucotrol] 5 mg PO BID 06/10/19 [History] hydrALAZINE HCL [Apresoline] 25 mg PO Q8H 06/10/19 [History] amLODIPine [Norvasc] 2.5 mg PO DAILY 30 Days #30 tablet 06/13/19 [Rx] levETIRAcetam [Keppra] 500 mg PO Q12HR 30 Days #60 tab 06/13/19 [Rx] Follow up Appointment(s)/Referral(s): Dionisio [facility], [NON-STAFF] - As Needed Activity/Diet/Wound Care/Special Instructions: chelsea
--- NOTE | 2019-06-15 11:20 | CDI ---
Documentation Clarification Form Date: 06/15/19 From: Sophie Ramon CCS Phone: If you have a question about this query, please contact Jacquelyn Masterson, Statement Processor at [phone] between 8am and 5pm. Admit Date: 06/10/19 Discharge Date:06/13/19 Patient Name: Flory Sims Visit Number: [id number] ATTENTION: The Clinical Documentation Specialists (CDI) and [facility] Coding Staff appreciate your assistance in clarifying documentation. Please respond to the clarification below the line at the bottom and electronically sign. The CDI & [facility] Coding staff will review the response and follow-up if needed. Please note: Queries are made part of the Legal Health Record. If you have any questions, please contact the author of this message via ITS. Dear Dr. Fenton, Encephalopathy is documented in the 06/12 Progress Note. History/Risk Factors: UTI, Zoster infection, HTN, DM Clinical Indicators: Episode of unresponsiveness, that lasted several hours patient was not responding to any stimuli including chest rubs. Labs: Glucose 167 EEG: This is a normal wake, drowsy and pre-stage [address]/MRI Brain: No acute intracranial abnormality seen. Treatment: Rocephin 1 gm IVPB, Keppra 500 mg IV, Apresoline 25 mg IV Consults: John In your professional opinion, can you please clarify the specific type of Encephalopathy, if known? Metabolic Encephalopathy (please indicate etiology if known) Toxic Encephalopathy (please indicate etiology or neurotoxic drug associated) Encephalopathy (unknown) Altered Mental Status- Encephalopathy ruled out Other, please specify Unable to determine unable to determine MTDD
--- NOTE | 2019-06-23 08:44 | CDI ---
Documentation Clarification Form Date: 06/23/19 From: Sophie Ramon CCS Phone: If you have a question about this query, please contact Jacquelyn Masterson, Social Staff Worker at [phone] between 8am and 5pm. Admit Date: 06/10/19 Discharge Date:06/13/19 Patient Name: Flory Sims Visit Number: [id number] ATTENTION: The Clinical Documentation Specialists (CDI) and [facility] Coding Staff appreciate your assistance in clarifying documentation. Please respond to the clarification below the line at the bottom and electronically sign. The CDI & [facility] Coding staff will review the response and follow-up if needed. Please note: Queries are made part of the Legal Health Record. If you have any questions, please contact the author of this message via ITS. Dear Dr. Fenton, Altered mental status is documented in the H&P, Consult, PNs. Patient history/risk factors: UTI, DM, HTN, Carotid stenosis, Herpes simplex Clinical Indicators: Two prolonged episodes of unresponsiveness lasting several hours each episode, Mental status changes Radiology: Atrophy with periventricular white matter ischemic type changes EEG: This is a normal wake, drowsy and pre-stage 2 EEG study Labs: Glucose 167 Vital Signs: BP 168/72, MO 96, RR 16, O2 Sat 98 Treatment: Rocephin 1 gm IVPB, Apresoline 25 mg PO, NovoLOG SQ, Keppra 500 mg IVPB Oxygen: Nasal cannula 2 lpm Consults: John Clinical significance of diagnostic testing and treatment cannot be assumed or coded without physician documentation of the significance, if any. Signs or symptoms of an underlying condition should be coded only if not definite diagnosis is determined. In your professional opinion, can you please clarify the underlying cause of the altered mental status, if known? Encephalopathy due to UTI Encephalopathy Encephalopathy unknown etiology Seizure Altered mental status Other, please specify Unable to determine Metabolic encephalopathy due to UTI MTDD
== END 2019-06-13 16:23 | DRG 689 ==
LOC: 3SCARD 08:50
PROVIDERS: ADMIT Internal Medicine; ATTEND Internal Medicine
DX: N39.0 Urinary tract infection, site not specified (principal); G93.41 Metabolic encephalopathy; B02.8 Zoster with other complications; E11.9 Type 2 diabetes mellitus without complications; I10 Essential (primary) hypertension; E78.5 Hyperlipidemia, unspecified; R53.1 Weakness; R32 Unspecified urinary incontinence; I65.22 Occlusion and stenosis of left carotid artery; M19.90 Unspecified osteoarthritis, unspecified site; Z79.82 Long term (current) use of aspirin; Z79.4 Long term (current) use of insulin; Z79.899 Other long term (current) drug therapy; Z87.448 Personal history of other diseases of urinary system; Z90.710 Acquired absence of both cervix and uterus
CPT/HCPCS: 70450; 70544; 70547; 70551; 80053; 80061; 82140; 82550; 82553; 82607; 82728; 82746; 83540; 83550; 84146; 84443; 84484; 85025; 85610; 85652; 85730; 86140; 93306; 93880; 95819

== ENCOUNTER 2019-06-16 03:49 | Observation (INO) | payer MEDICARE ==
--- NOTE | 2019-06-16 04:26 | ED ---
General Adult HPI - General Stated complaint: Neuro Time Seen by Provider: 06/16/19 04:04 Source: EMS Mode of arrival: EMS Limitations: no limitations - History of Present Illness Initial comments: Flory is a pleasant 88-year-old female who is transferred to our hospital from outside emergency department for admission and evaluation by neurology. Patient was admitted to our hospital recently and evaluated by neurology. Patient was subsequently transferred to a residential. Per residential staff today the patient became confused, there may have been some seizure-like activity is uncertain however after this episode the patient was noted to have left-sided weakness slurred speech and left-sided facial droop therefore EMS was called for transport to the hospital. Upon EMS arrival reported the patient had some slurred speech and minimal left-sided weakness. Upon arrival at the outside hospital patient was noted to have minimal weakness in her left lower extremity no slurred speech or facial droop. She had a head CT with no acute findings. Urinalysis was concerning for UTI and she was given Rocephin. The outside facility had no neurology availability and because of continuity of care patient was transferred here for admission. - Related Data Home Medications Medication Instructions Recorded Confirmed Acetaminophen [Tylenol] 500 mg PO Q6H PRN 06/10/19 06/10/19 Aspirin 325 mg PO DAILY 06/10/19 06/10/19 Furosemide [Lasix] 20 mg PO DAILY 06/10/19 06/10/19 INSULIN LISPRO (HumaLOG) [humaLOG] See Protocol SQ ACHS 06/10/19 06/10/19 Potassium Chloride [Klor-Con 20] 20 meq PO BID 06/10/19 06/10/19 Pravastatin Sodium [Pravachol] 40 mg PO DAILY 06/10/19 06/10/19 glipiZIDE [Glucotrol] 5 mg PO BID 06/10/19 06/10/19 hydrALAZINE HCL [Apresoline] 25 mg PO Q8H 06/10/19 06/10/19 Previous Rx's Medication Instructions Recorded amLODIPine [Norvasc] 2.5 mg PO DAILY 30 Days #30 tablet 06/13/19 levETIRAcetam [Keppra] 500 mg PO Q12HR 30 Days #60 tab 06/13/19 Allergies Allergy/AdvReac Type Severity Reaction Status Date / Time No Known Allergies Allergy Verified 06/10/19 12:24 Review of Systems ROS Statement: Those systems with pertinent positive or pertinent negative responses have been documented in the HPI. ROS Other: All systems not noted in ROS Statement are negative. Past Medical History Past Medical History: Cancer, COPD, Diabetes Mellitus, Hyperlipidemia, Hypertension, Osteoarthritis (OA), Renal Disease, Thyroid Disorder History of Any Multi-Drug Resistant Organisms: None Reported Past Surgical History: Hysterectomy Additional Past Surgical History / Comment(s): Back surgery, abdominal surgery Past Anesthesia/Blood Transfusion Reactions: Unable to Obtain Past Psychological History: Unable to Obtain Smoking Status: Never smoker Past Alcohol Use History: None Reported Past Drug Use History: None Reported - Past Family History Father History Unknown: Yes Mother History Unknown: Yes General Exam - General Exam Comments Initial Comments: Physical Exam GENERAL: Patient is well-developed and well-nourished. Patient is nontoxic and well-hydrated and is in no distress. HENT: Normocephalic, Atraumatic. EYES: PERRL, EOMI PULMONARY: Unlabored respirations. CARDIOVASCULAR: RRR Warm and well perfused extremities ABDOMEN: Non-distended SKIN: No rashes or bruising : Deferred NEUROLOGIC: Alert and oriented - hard of hearing Normal speech MUSCULOSKELETAL: Moving all extremities with no apparent injury PSYCHIATRIC: No SI/HI Limitations: no limitations Course Vital Signs 06/16/19 03:55 Temperature 97.7 F Pulse Rate 108 H Blood Pressure 173/72 O2 Sat by Pulse 96 Oximetry Medical Decision Making - Medical Decision Making Patient care was discussed with transferring physician Dr. Al. Patient underwent a stroke workup at the outside emergency Department was negative. Due to resolution of symptoms patient's advanced age she is not a candidate for TPA. Patient was transferred to our facility for admission, patient care has been discussed with patient's primary care doctor who sharp prior to admission. Disposition Clinical Impression: Altered mental status, Left-sided weakness Disposition: ADMITTED IP TO THIS HOSP Condition: Stable Is patient prescribed a controlled substance at d/c from ED?: No Referrals: Micki Villalobos MD [Primary Care Provider] - 1-2 days
--- NOTE | 2019-06-16 14:08 | P.CNNES ---
History of Present Illness Consult date: 06/16/19 Requesting physician: Monica Haq Reason for Consult: Possible stroke History of Present Illness: Patient is an 88-year-old female transferred from outside hospital for neurological evaluation. Patient was recently admitted to [facility], and was evaluated by Dr. Lopez. Patient was subsequently seen by myself as a follow-up on 06/13/2019. Patient on the last admission had undergone extensive testing as mentioned below. Patient was diagnosed with possible seizure, toxic metabolic encephalopathy. Patient was subsequently discharged to the long-term the same day on Keppra 500 mg twice a day. Patient was brought back to the hospital today, after she was noted to have some seizure-like activity. Patient was noted to have left-sided weakness slurred speech and left facial droop therefore EMS was called and transported to the hospital. When EMS arrived, patient had some slurred speech and minimal left-sided weakness. When patient arrived at outside hospital, patient was noted to have minimal weakness in her left lower extremity, no slurred speech facial droop. She had computed tomography scan of the head which revealed no acute findings. Urinalysis was consulted for UTI and she was given Rocephin.. Patient was transferred to [facility] for neurological evaluation. Review of records from outside hospital indicate that her blood sugar on arrival to the ER was 1:30. Chem-7 normal. ProBNP 341 which is normal. Lactic acid 0.2, troponin negative. Liver panel normal, calcium normal, CBC with WBC 12.3, hemoglobin 11.7 and platelets 44. UA showed more than 25 wbc's, "the RBCs no bacteria. She is to present. 1+ protein 2+ leukocyte esterase and negative nitrites. Blood cultures pending. Chest x-ray showed no acute process. Computed tomography scan of the head revealed extensive hypodensity in the periventricular white matter. There are cerebral cortical atrophy. There is no mass effect or midline shift. There is no signs of intracranial hemorrhage. EKG showed sinus or ectopic atrial tachycardia. Anterior, cold. Patient was given aspirin, Rocephin in the ER, then transferred to [facility] she arrived here at 3:49 AM. Her records from previous admission showed MRI of brain from 06/10/2019 shows no acute intracranial process. Mild generalized atrophy and severe confluent changes of chronic small vessel ischemic disease. MRA of the head showed dominant left vertebral artery. 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 No large vessel intracranial arterial occlusion, significant stenosis or aneurysmal change. MRA of the neck showed focal loss of flow related enhancement within the bilateral ICAs at the cervical cranial junctions. Given the symmetry, skull base artifact is favored over focal severe stenosis. Thin cut CT angiogram may be helpful to further evaluate. Otherwise, dominant left vertebral artery. Mild, less than 50% stenosis left carotid bulb. 2-D echo from 06/11/2019 showed sinus rhythm, moderate concentric LVH, EF 60-65%. Normal left atrial size. Interatrial and interventricular septum intact. Small pericardial effusion located near the left ventricle. Carotid Doppler from 06/11/2019 showed no significant stenosis either ICA. Antegrade flow in both vertebral arteries. Patient's hemoglobin A1c 6.6 on 06/15/2019, total cholesterol 92, LDL 35, HDL 39 and triglycerides 90. Liver panel normal. Chem- 7 normal. B12 4000, folate 7.2, TSH normal, CBC with hemoglobin 11.2. Patient at present NO complaints. She is confused as mentioned below. She complains of having pain in her shingles in the left thoracic region. Review of Systems Denies any headache, problem with the vision, process for dysphagia. Denies any numbness tingling". He complains of pain and the shingles. Past Medical History Past Medical History: Cancer, COPD, Diabetes Mellitus, Hyperlipidemia, Hypertension, Osteoarthritis (OA), Renal Disease, Thyroid Disorder Additional Past Medical History / Comment(s): questionable Seizures recently placed on Keppra (last admission) History of Any Multi-Drug Resistant Organisms: None Reported Past Surgical History: Hysterectomy Additional Past Surgical History / Comment(s): Back surgery, abdominal surgery Past Anesthesia/Blood Transfusion Reactions: Unable to Obtain Past Psychological History: Unable to Obtain Smoking Status: Never smoker Past Alcohol Use History: None Reported Past Drug Use History: None Reported - Past Family History Father History Unknown: Yes Mother History Unknown: Yes Medications and Allergies Home Medications Medication Instructions Recorded Confirmed Type INSULIN LISPRO (HumaLOG) [humaLOG] See Protocol SQ ACHS 06/10/19 06/16/19 History Pravastatin Sodium [Pravachol] 40 mg PO HS@2100 06/10/19 06/16/19 History glipiZIDE [Glucotrol] 5 mg PO BID@0800,1700 06/10/19 06/16/19 History Magnesium Hydroxide [Milk of 2,400 mg PO DAILY PRN 06/16/19 06/16/19 History Magnesia] Na Phos,M-B/Na Phos,Di-Ba [Fleet 133 ml RECTAL DAILY PRN 06/16/19 06/16/19 History Adult] amLODIPine [Norvasc] 2.5 mg PO DAILY@0800 06/16/19 06/16/19 History Allergies Allergy/AdvReac Type Severity Reaction Status Date / Time No Known Allergies Allergy Verified 06/16/19 09:37 Physical Examination - Vital Signs Vital Signs: Vital Signs Temp Pulse Pulse Resp BP BP Pulse Ox 06/16/19 08:00 97.1 F L 102 H 18 154/74 98 06/16/19 06:25 96 18 06/16/19 06:24 97.7 F 96 18 151/68 98 06/16/19 06:09 108 H 18 170/77 99 06/16/19 03:55 97.7 F 108 H 173/72 96 Intake and Output 06/15/19 06/16/19 06/16/19 22:59 06:59 14:59 Other: Weight 67.857 kg On examination patient is an elderly female, who appears somewhat depressed, flat affect. Patient states that she is currently in her son's house and when asked where her son was, states he is an airplane. She states that she is currently in [facility] and she knows that it is June 2019 and name of the current president. Speech and language functions are normal. No aphasia or dysarthria. She is somewhat quiet. On cranial nerve examination, pupils are round and reactive to light, visual soto are full on confrontati on, extraocular muscles are intact. Face is symmetric and tongue protrudes the midline. Palatal elevation and sensation normal. Muscle strength testing there is no pronator drift and the strength is normal in arms and legs distally and proximally 1+ and plantars downgoing. sensory touch is equal. no neglect. no ataxia for [id number]-[id number] testing. tone and bulk of muscles normal. Assessment and Plan Assessment: * 88-year-old female, admitted with recurrent episodes of unresponsiveness/seizure type activity, was also noted to have him focal symptoms with slurred speech, left-sided weakness that this current episode. Rule out seizures with postictal Arthur's versus TIA. Patient had extensive TIA/CVA workup performed previously which was negative. Patient apparently was discharged on Keppra 500 mg twice a day, but home medications does not list about being on Keppra. Suspect focal seizures. * Hypertension * Diabetes * Dyslipidemia * Shingles involving the left thoracic region. Plan: * Repeat EEG. We will consider placing her on a different antiepileptic medication, as Keppra can produce behavioral problems. Lamictal could be considered or Vimpat. * Start aspirin 325 mg daily, and Pravachol 40 mg as she was taking at home. * Optimize control of diabetes. * We will follow.
[2019-06-16] MEDS ORDERED: NA PHOS,M-B/NA PHOS,DI-BA 133 ML ENEMA RECTAL PRN (15:26)
[2019-06-16] MEDS ORDERED: MAGNESIUM HYDROXIDE 2,400 MG/10 ML CUP PO PRN (15:26)
[2019-06-16] MEDS ORDERED: ACETAMINOPHEN TAB 500 MG TAB PO PRN (15:30)
--- NOTE | 2019-06-16 15:30 | P.HPIM ---
History of Present Illness H&P Date: 06/16/19 Chief Complaint: Episodes of unresponsiveness Flory Sims, is an 88-year-old female who presented to [facility] emergency room due to episodes of unresponsiveness, patient was recently admitted with similar symptoms where she was having episodes of compl ete and responsiveness even to repeated stimuli, these episodes were lasting a few hours, patient was evaluated by neurology and was started on Keppra. She was transferred back to [facility] however patient continued to have similar episodes and she was transferred back to the hospital. Patient also has a recent history of urinary tract infection treated with IV Rocephin during the last admission she also had acute renal injury on the previous admission. Patient has a known history of hypertension, hyperlipidemia, and lhg-rzygzei-stfemknxt diabetes mellitus millimeters however there was no evidence of any episodes of hypoglycemia at any time during these episodes of unresponsiveness. Past Medical History Past Medical History: Cancer, COPD, Diabetes Mellitus, Hyperlipidemia, Hypertension, Osteoarthritis (OA), Renal Disease, Thyroid Disorder Additional Past Medical History / Comment(s): questionable Seizures recently placed on Keppra (last admission) History of Any Multi-Drug Resistant Organisms: None Reported Past Surgical History: Hysterectomy Additional Past Surgical History / Comment(s): Back surgery, abdominal surgery Past Anesthesia/Blood Transfusion Reactions: Unable to Obtain Past Psychological History: Unable to Obtain Smoking Status: Never smoker Past Alcohol Use History: None Reported Past Drug Use History: None Reported - Past Family History Father History Unknown: Yes Mother History Unknown: Yes Medications and Allergies Home Medications Medication Instructions Recorded Confirmed Type INSULIN LISPRO (HumaLOG) [humaLOG] See Protocol SQ ACHS 06/10/19 06/16/19 History Pravastatin Sodium [Pravachol] 40 mg PO HS@2100 06/10/19 06/16/19 History glipiZIDE [Glucotrol] 5 mg PO BID@0800,1700 06/10/19 06/16/19 History Magnesium Hydroxide [Milk of 2,400 mg PO DAILY PRN 06/16/19 06/16/19 History Magnesia] Na Phos,M-B/Na Phos,Di-Ba [Fleet 133 ml RECTAL DAILY PRN 06/16/19 06/16/19 History Adult] amLODIPine [Norvasc] 2.5 mg PO DAILY@0800 06/16/19 06/16/19 History Allergies Allergy/AdvReac Type Severity Reaction Status Date / Time No Known Allergies Allergy Verified 06/16/19 09:37 Physical Exam Vitals: Vital Signs Temp Pulse Pulse Resp BP BP Pulse Ox 06/16/19 08:00 97.1 F L 102 H 18 154/74 98 06/16/19 06:25 96 18 06/16/19 06:24 97.7 F 96 18 151/68 98 06/16/19 06:09 108 H 18 170/77 99 06/16/19 03:55 97.7 F 108 H 173/72 96 Intake and Output 06/16/19 06/16/19 06/16/19 06:59 14:59 22:59 Other: Weight 67.857 kg At this time patient is alert responsive in no apparent distress she is slightly confused HEENT head normocephalic and atraumatic Neck is supple no JVD no goiter no lymphadenopathy Chest exam reveals a few scattered rhonchi no wheezing Cardiac exam reveals regular heart sounds no gallops no murmurs Abdomen is soft nontender no organomegaly with normal bowel sounds Extremity exam reveals no edema no cyanosis or clubbing Neurological examination reveals no gross focal deficits Assessment and Plan Plan: #1 episodes of unresponsiveness, cause is not entirely clear possible seizure activity was prolonged post ictal episodes, neurology consultation was requested again for evaluation, will check Keppra level #2 possibility of infectious encephalitis was raised by nurse practitioner at [facility]. There is no fever or leukocytosis Will consult infectious disease for evaluation. #3 underlying history of com-sjjhbic-qkyxdnwcz diabetes mellitus, no evidence of episodes of hypoglycemia however will discontinue glipizide at this time and monitor glucose closely #4 underlying history of hypertension blood pressure medications were reordered will monitor blood pressure #5 underlying history of hyperlipidemia maintained on pravastatin continue At this time medication were reviewed and reordered Neurology and infectious disease consultation requested Recheck urine analysis Recheck CBC and CMP will follow closely
[2019-06-16] MEDS: PRAVASTATIN SODIUM 40 MG TAB PO SCH (17:26)
[2019-06-16] MEDS: ASPIRIN 325 MG TAB PO SCH (17:26)
[2019-06-16] MEDS: hydrALAZINE HCL 25 MG TAB PO SCH ×2 (17:26→20:36)
[2019-06-16] MEDS: levETIRAcetam 500 MG TAB PO SCH (20:36)
[2019-06-16] MEDS ORDERED: PRAVASTATIN SODIUM 40 MG TAB PO SCH (21:00)
[2019-06-16] MEDS ORDERED: levETIRAcetam 500 MG TAB PO SCH (21:00)
[2019-06-17 00:11] LABS: HSV I IgG Interp NEGATIVE (NEGATIVE); HSV II IgG Interp NEGATIVE (NEGATIVE)
--- NOTE | 2019-06-17 05:58 | CONS ---
CONSULTATION DATE OF SERVICE: 06/16/2019 REASON FOR CONSULTATION: Mental status changes, question of infectious encephalitis. HISTORY OF PRESENT ILLNESS: The patient is an 88-year-old female who has been brought into the ER, admitted to hospital early this morning for episode of unresponsiveness. Apparently patient did have similar symptoms a few weeks ago for which the patient had been started on Keppra for possible seizure disorder, went to [facility]. The patient was noticed to have similar episode. The patient noticed to be unresponsive, not responding to the stimuli for which the patient has been brought to the hospital. On arrival to the ER, the patient has been afebrile and no fever has been recorded in the last 24 hours. The patient did not have any blood work done. The patient apparently was recently diagnosed with UTI for which the patient had been treated with Rocephin. Infectious Disease was consulted for possible infectious encephalitis. At the time of my evaluation, the patient is awake and alert. She knows that she is in the hospital, however, she was unable to name the hospital. The patient denies any headache to me. No chest pain or shortness of breath or cough. No nausea or vomiting. No abdominal pain or diarrhea. REVIEW OF SYSTEMS: Positive points have been mentioned in HPI. Rest of systems are negative. PAST MEDICAL HISTORY: Her past medical history is significant for hypertension, hyperlipidemia, diabetes mellitus, COPD. PAST SURGICAL HISTORY: Hysterectomy, back surgery. SOCIAL HISTORY: correction resident. No smoking, drinking or drug use. FAMILY HISTORY: No pertinent findings noticed. ALLERGIES: No known drug allergies. MEDICATIONS: Medications include the patient is currently on Tylenol, Norvasc, aspirin, Lasix, hydralazine, Keppra, milk of magnesia, K-Dur, Pravachol. PHYSICAL EXAMINATION: On examination, her blood pressure is 145/65 with a pulse of 98, temperature 98.1. She is 97% on room air. General description is an elderly female lying in bed in no distress. No tachypnea or accessory muscle of respiration use. HEENT: Examination shows no pallor or scleral icterus. Oral mucous membrane is dry. No pharyngeal erythema or thrush. NECK: Trachea central. No thyromegaly. LUNGS: Unlabored breathing, clear to auscultation. No wheeze or crackle. HEART: S1, S2. Regular rate and rhythm. ABDOMEN: Soft, no tenderness. No guarding or rigidity. EXTREMITIES: No feet examination. SKIN EXAMINATION: No rash or mass palpable. NEUROLOGIC: The patient is awake, alert, and oriented x2. No neck rigidity. LABS: No labs at this facility. DIAGNOSTIC IMPRESSION AND PLAN: 1. Patient who has been sent to the ER for evaluation of mental status changes, facial droop and weakness with concern for possible cerebrovascular accident for which the patient has been evaluated by neurology services. Apparently, the patient did not have any fever and the patient denied any headache to me. Clinically doubt infectious encephalitis such as herpes. 2. Patient with a possible urinary tract infection though I do not have any access to the outpatient blood work and UA and that was done at the outside facility ER. PLAN: 1. We will check a CRP level, wait for the UA and culture, CBC and BMP that have been done for tomorrow. 2. Will check HSV serology, which if negative that will rule out herpes encephalitis. 3. We will follow up on her clinical condition and further adjust medication if needed. Thank you for this consultation. Will follow this patient along with you. MMODL / IJN: [id number] /
[2019-06-17 06:22] LABS: Anisocytosis Slight; Basophils % (A) 0 %; Eosinophils # (A) 0.2 k/uL (0-0.7); Eosinophils % (A) 2 %; HCT 36.3 % (34.0-46.0); HGB 11.6 gm/dL (11.4-16.0); Lymphocytes # (A) 0.8 k/uL (1.0-4.8); Lymphocytes % (A) 7 %; MCH 30.6 pg (25.0-35.0); MCHC 31.9 g/dL (31.0-37.0); MCV 95.9 fL (80.0-100.0); Macrocytosis Slight; Mean Platelet Volume 8.4; Monocytes # (A) 0.7 k/uL (0-1.0); Monocytes % (A) 7 %; Neutrophils % (A) 83 %; Platelet Count 245 k/uL (150-450); RBC 3.78 m/uL (3.80-5.40); RDW 16.1 % (11.5-15.5); WBC 10.9 k/uL (3.8-10.6)
[2019-06-17 06:31] LABS: Potassium 4.3 mmol/L (3.5-5.1)
[2019-06-17 06:33] LABS: Albumin 3.5 g/dL (3.5-5.0); Calcium 9.1 mg/dL (8.4-10.2); Total Protein 5.9 g/dL (6.3-8.2)
[2019-06-17] MEDS ORDERED: amLODIPine 2.5 MG TAB PO SCH (08:00)
[2019-06-17] MEDS ORDERED: POTASSIUM CHLORIDE ER 20 MEQ TAB.ER PO SCH (09:00)
[2019-06-17] MEDS ORDERED: ASPIRIN 325 MG TAB PO SCH (09:00)
[2019-06-17] MEDS ORDERED: FUROSEMIDE 20 MG TAB PO SCH (09:00)
[2019-06-17] MEDS: ASPIRIN 325 MG TAB PO SCH (09:08)
[2019-06-17] MEDS: hydrALAZINE HCL 25 MG TAB PO SCH ×2 (09:08→16:46)
[2019-06-17] MEDS: levETIRAcetam 500 MG TAB PO SCH (09:09)
[2019-06-17] MEDS: PRAVASTATIN SODIUM 40 MG TAB PO SCH (09:09)
[2019-06-17 10:39] VITALS: RESP 16
--- NOTE | 2019-06-17 13:50 | EEG ---
ELECTROENCEPHALOGRAM REPORT DATE OF SERVICE: 06/17/2019 PREAMBLE: An 88-year-old female with recurrent episodes off unresponsiveness and seizure-type activity. This study is performed to look for any epileptiform activity. EEG FINDINGS: A routine 21 channel portable EEG was recorded utilizing 10/20 international system with bipolar and referential montages. The EEG is technically poor because of presence of continuous electrode artifact in the lead D6. Recording starts and continues with presence of dysrhythmic theta and delta activity seen in the bihemispheric region. The additional focal slowing seen in the right hemispheric region throughout the study. Different stages of sleep were not seen. Photic driving response was not seen. No clear-cut epileptiform activity was seen. IMPRESSION: This is a technically limited EEG due to significant electrode and movement artifact seen throughout the study. Otherwise, the EEG reveals evidence of background slowing and disorganization suggestive of encephalopathy of metabolic degenerative or vascular cause. The distal right hemispheric slowing was seen, which also indicate focal cortical neural dysfunction. No definitive epileptiform activity was seen. If your suspicion for seizures is high, suggest prolonged, sleep-deprived EEG. MMODL / IJN: [id number] /
--- NOTE | 2019-06-17 15:15 | P.PN ---
Subjective Progress Note Date: 06/17/19 Patient is laying comfortably in the bed. A sitter was present. Patient apparently yesterday went by herself the stairs, all naked. Objective - Vital Signs Vital signs: Vital Signs Temp 98.2 F 06/17/19 08:00 Pulse 118 H 06/17/19 08:00 Resp 16 06/17/19 08:00 BP 149/69 06/17/19 08:00 Pulse Ox 97 06/17/19 08:00 Intake & Output 06/16/19 06/17/19 06/17/19 18:59 06:59 18:59 Intake Total 240 Output Total 600 900 Balance -600 -660 Intake: Oral 240 Output: Urine 600 900 Other: Voiding Method Diaper Diaper Diaper Incontinent Incontinent Incontinent # Voids 1 # Bowel Movements 0 - Exam Patient is alert and awake, pleasant more awake. - Labs CBC & Chem 7: 06/17/19 06:07 06/17/19 06:07 Labs: Abnormal Lab Results - Last 24 Hours (Table) 06/17/19 06/17/19 Range/Units 06:07 06:07 WBC 10.9 H (3.8-10.6) k/uL RBC 3.78 L (3.80-5.40) m/uL RDW 16.1 H (11.5-15.5) % Neutrophils # 9.0 H (1.3-7.7) k/uL Lymphocytes # 0.8 L (1.0-4.8) k/uL Glucose 133 H (74-99) mg/dL Total Protein 5.9 L (6.3-8.2) g/dL Assessment and Plan Assessment: * 88-year-old female, admitted with recurrent episodes of unresponsiveness/seizure type activity, was also noted to have him focal sy mptoms with slurred speech, left-sided weakness with this current episode. Rule out seizures with postictal Arthur's versus TIA. Patient had extensive TIA/CVA workup performed previously which was negative. Patient has been on Keppra 500 mg twice a day. Suspect breakthrough focal seizures. * Hypertension * Diabetes * Dyslipidemia * Shingles involving the left thoracic region. Plan: * Repeat EEG from today revealed technically limited study due to significant electrode and movement artifact seen throughout the study. Otherwise the EEG revealed background slowing consistent with encephalopathy as well as superimposed right hemispheric slowing, which suggest focal cortical neuronal dysfunction. No definitive epileptiform activity was seen. If your suspicion for seizures is high, suggest prolonged, sleep deprived EEG. Patient is experiencing significant behavioral side effects, which could be possible side effect of Keppra. We will stop Keppra and start her on Vimpat 100 mg twice a day. Suggest patient follow up with neurologist locally to manage her seizure medication. * Continue aspirin 325 mg daily, and Pravachol 40 mg as she was taking at home. * Optimize control of diabetes. * Neurologically clear otherwise.
--- NOTE | 2019-06-17 15:43 | P.DS ---
Providers Date of admission: 06/16/19 05:04 Expected date of discharge: 06/17/19 Attending physician: Yeny Fenton Consults: 06/16/19 04:04 Consult Physician Routine Consulting Provider: Teresa Harris Consult Reason/Comments: possible stroke Do you want consulting provider notified?: Yes, Notify in am 06/16/19 15:20 Consult Physician Routine Consulting Provider: Franchesca Costa Consult Reason/Comments: episodes of unresponsivness Do you want consulting provider notified?: Yes Primary care physician: Micki Villalobos [facility] Course: Diagnoses on discharge: #1 episodes of unresponsiveness, cause is not entirely clear possible seizure activity with prolonged post ictal episodes, neurology consultation was requested again for evaluation, will check Keppra level #2 possibility of infectious encephalitis was raised by nurse practitioner at [facility]. There is no fever or leukocytosis Will consult infectious disease for evaluation. #3 underlying history of [id number] diabetes mellitus, no evidence of episodes of hypoglycemia however will discontinue glipizide at this time and monitor glucose closely #4 underlying history of hypertension blood pressure medications were reordered will monitor blood pressure #5 underlying history of hyperlipidemia maintained on pravastatin continue Hospital course: Flory Sims, is an 88-year-old female who presented to [facility] emergency room due to episodes of unresponsiveness, patient was recently admitted with similar symptoms where she was having episodes of complete and responsiveness even to repeated stimuli, these episodes were lasting a few hours, patient was evaluated by neurology and was started on Keppra. She was transferred back to [facility] however patient continued to have similar episodes and she was transferred back to the hospital. Patient also has a recent history of urinary tract infection treated with IV Rocephin during the last admission she also had acute renal injury on the previous admission. Patient has a known history of hypertension, hyperlipidemia, and tdb-ghylmkn-cjnvynnzk diabetes mellitus millimeters however there was no evidence of any episodes of hypoglycemia at any time during these episodes of unresponsiveness. On 06/17/2019 patient was seen and examined on the medical floor she is alert and oriented 3 in no apparent distress she denies any symptoms at this time. Is no fever or chills no headache or dizziness no chest pain no shortness of breath no cough no nausea or vomiting no abdominal pain no diarrhea no burning was urination no frequency or urgency and no hematuria. Repeat EEG done today reveals evidence of background slowing consistent with encephalopathy as well as superimposed right hemispheric slowing which suggest focal cortical neuronal dysfunction without any definitive epileptiform activity. Due to possible side effect with Keppra recommendation from neurology at this time is to discontinue Keppra and start Vimpat 100 mg by mouth twice daily patient was cleared for discharge by neurology. Recommendation is to follow up with a local neurologist as soon as possible. During this admission glipizide was discontinued and patient was continued on the on insulin sliding scale. There was no episodes of hypoglycemia. Patient Condition at Discharge: Stable Plan - Discharge Summary Discharge Rx Participant: No New Discharge Prescriptions: New Acetaminophen Tab [Tylenol] 500 mg PO Q6H PRN tab PRN Reason: Mild Pain Lacosamide [Vimpat] 100 mg PO BID tablet Continue INSULIN LISPRO (HumaLOG) [humaLOG] See Protocol SQ ACHS Pravastatin Sodium [Pravachol] 40 mg PO HS@2100 Na Phos,M-B/Na Phos,Di-Ba [Fleet Adult] 133 ml RECTAL DAILY PRN PRN Reason: Constipation amLODIPine [Norvasc] 2.5 mg PO DAILY@0800 Magnesium Hydroxide [Milk of Magnesia] 2,400 mg PO DAILY PRN PRN Reason: Constipation hydrALAZINE HCL [Apresoline] 25 mg PO TID Potassium Chloride [Klor-Con 20] 20 meq PO DAILY Aspirin 325 mg PO DAILY Furosemide [Lasix] 20 mg PO DAILY Discontinued glipiZIDE [Glucotrol] 5 mg PO BID@0800,1700 Acetaminophen Tab [Tylenol Tab] 500 mg PO Q6H levETIRAcetam [Keppra] 500 mg PO Q12HR Discharge Medication List INSULIN LISPRO (HumaLOG) [humaLOG] See Protocol SQ ACHS 06/10/19 [History] Pravastatin Sodium [Pravachol] 40 mg PO HS@2100 06/10/19 [History] Aspirin 325 mg PO DAILY 06/16/19 [History] Furosemide [Lasix] 20 mg PO DAILY 06/16/19 [History] Magnesium Hydroxide [Milk of Magnesia] 2,400 mg PO DAILY PRN 06/16/19 [History] Na Phos,M-B/Na Phos,Di-Ba [Fleet Adult] 133 ml RECTAL DAILY PRN 06/16/19 [History] Potassium Chloride [Klor-Con 20] 20 meq PO DAILY 06/16/19 [History] amLODIPine [Norvasc] 2.5 mg PO DAILY@0800 06/16/19 [History] hydrALAZINE HCL [Apresoline] 25 mg PO TID 06/16/19 [History] Acetaminophen Tab [Tylenol] 500 mg PO Q6H PRN tab 06/17/19 [Rx] Lacosamide [Vimpat] 100 mg PO BID tablet 06/17/19 [Rx] Follow up Appointment(s)/Referral(s): Blair Cowan, [NON-STAFF] - Micki Villalobos MD [Primary Care Provider] - 1-2 days
[2019-06-17 16:26] VITALS: BP 136/85; PULSE 116; TEMP 98.4
[2019-06-17] MEDS ORDERED: LACOSAMIDE 50 MG TABLET PO SCH (21:00)
== END 2019-06-17 18:10 ==
LOC: EC 03:49 → 3SCARD 05:04
PROVIDERS: ADMIT Internal Medicine; ATTEND Internal Medicine
DX: R41.82 Altered mental status, unspecified (principal); R29.810 Facial weakness; R53.1 Weakness; R47.81 Slurred speech; J44.9 Chronic obstructive pulmonary disease, unspecified; I10 Essential (primary) hypertension; E78.5 Hyperlipidemia, unspecified; E11.9 Type 2 diabetes mellitus without complications; B02.9 Zoster without complications; M19.90 Unspecified osteoarthritis, unspecified site; I47.1 Supraventricular tachycardia; I65.22 Occlusion and stenosis of left carotid artery; E07.9 Disorder of thyroid, unspecified; Z79.82 Long term (current) use of aspirin; Z79.4 Long term (current) use of insulin; Z79.899 Other long term (current) drug therapy; Z90.710 Acquired absence of both cervix and uterus; Z87.440 Personal history of urinary (tract) infections; Z85.9 Personal history of malignant neoplasm, unspecified
CPT/HCPCS: 99285; 95816; 97162; 97166; 80053; 80177; 85025; 86140; 87040; 86695; 86696; G0378 ×2

== ENCOUNTER 2019-06-23 21:38 | Inpatient (IN) | payer MEDICARE ==
[2019-06-23 22:03] LABS: Glucose,Whole Blood 223 mg/dL (75-99)
[2019-06-23 22:38] LABS: Albumin 3.6 g/dL (3.5-5.0); Calcium 9.3 mg/dL (8.4-10.2); Total Bilirubin 1.3 mg/dL (0.2-1.3); Total Protein 6.3 g/dL (6.3-8.2)
--- NOTE | 2019-06-23 22:46 | ED ---
Altered Mental Status HPI - General Chief Complaint: Altered Mental Status Stated Complaint: Altered mental status Time Seen by Provider: 06/23/19 21:55 Source: EMS Mode of arrival: EMS - History of Present Illness Initial Comments: The patient is an 88-year-old female with past medical history of COPD, diabetes or presents from [facility] for altered mental status. Per the staff there they state that the patient became unresponsive and had some left-sided weakness. Review the patient's records demonstrates that she has been seen in the emergency department 3 times in the past month for similar complaint. The patient was originally on keppra however they felt that her unresponsive episodes may be secondary to the Keppra and therefore she was changed to Vimpat. The patient arrives alert and does follow commands however she has difficulty answering questions. It is reported the patient is altered at baseline. The patient denies any headaches or visual changes. No chest pain, shortness of breath or nausea. She is currently be treated for UTI. Remainder of the HPI is limited because the patient's current condition - Related Data Home Medications Medication Instructions Recorded Confirmed INSULIN LISPRO (HumaLOG) [humaLOG] See Protocol SQ ACHS 06/10/19 06/23/19 Pravastatin Sodium [Pravachol] 40 mg PO HS@2100 06/10/19 06/23/19 Aspirin 325 mg PO DAILY@1700 06/16/19 06/23/19 Furosemide [Lasix] 20 mg PO DAILY@0800 06/16/19 06/23/19 Na Phos,M-B/Na Phos,Di-Ba [Fleet 133 ml RECTAL DAILY PRN 06/16/19 06/23/19 Adult] amLODIPine [Norvasc] 2.5 mg PO DAILY@0800 06/16/19 06/23/19 hydrALAZINE HCL [Apresoline] 25 mg PO Q8H PRN 06/16/19 06/23/19 Bisacodyl 10 mg RECTAL DAILY PRN 06/23/19 06/23/19 Glucerna Shake 1 can PO TID@0800,1200,1700 06/23/19 06/23/19 Lacosamide [Vimpat] 100 mg PO BID@0800,1700 06/23/19 06/23/19 Magnesium Hydroxide [Milk of 7,200 mg PO DAILY PRN 06/23/19 06/23/19 Magnesia Concentrate] Menthol-Zinc Oxide Oint 1 applic TOPICAL BID 06/23/19 06/23/19 [Calmoseptine Oint] Potassium Chloride ER [K-Dur 20] 20 meq PO DAILY@0800 06/23/19 06/23/19 Previous Rx's Medication Instructions Recorded Acetaminophen Tab [Tylenol] 500 mg PO Q6H PRN tab 06/17/19 Allergies Allergy/AdvReac Type Severity Reaction Status Date / Time No Known Allergies Allergy Verified 06/23/19 22:02 Review of Systems ROS Statement: Those systems with pertinent positive or pertinent negative responses have been documented in the HPI. ROS Other: All systems not noted in ROS Statement are negative. Past Medical History Past Medical History: Cancer, COPD, Diabetes Mellitus, Hyperlipidemia, Hypertension, Osteoarthritis (OA), Renal Disease, Thyroid Disorder Additional Past Medical History / Comment(s): questionable Seizures recently placed on Keppra (last admission) History of Any Multi-Drug Resistant Organisms: None Reported Past Surgical History: Hysterectomy Additional Past Surgical History / Comment(s): Back surgery, abdominal surgery Past Anesthesia/Blood Transfusion Reactions: Unable to Obtain Past Psychological History: Unable to Obtain Smoking Status: Never smoker Past Alcohol Use History: None Reported Past Drug Use History: None Reported - Past Family History Father History Unknown: Yes Mother History Unknown: Yes General Exam Limitations: altered mental status General appearance: alert, in no apparent distress Head exam: Present: atraumatic, normocephalic, normal inspection Eye exam: Present: normal appearance, PERRL, EOMI. Absent: scleral icterus, conjunctival injection, periorbital swelling Neck exam: Present: normal inspection. Absent: tenderness, meningismus, lymphadenopathy Respiratory exam: Present: normal lung sounds bilaterally. Absent: respiratory distress, wheezes, rales, rhonchi, stridor Cardiovascular Exam: Present: regular rate, normal rhythm, normal heart sounds. Absent: systolic murmur, diastolic murmur, rubs, gallop, clicks GI/Abdominal exam: Present: soft, normal bowel sounds. Absent: distended, tenderness, guarding, rebound, rigid Extremities exam: Present: normal inspection, full ROM, normal capillary refill. Absent: tenderness, pedal edema, joint swelling, calf tenderness Neurological exam: Present: alert, other (oriented to self. Will answer questions appropriately but does not provide much information as she appears fatigued. Moves all extremities equally. No facial droop or unilateral weakness. Buggy Ladle Tender strength is strong bilaterally. ) Psychiatric exam: Present: flat affect Skin exam: Present: warm, dry, intact, normal color. Absent: rash Course Vital Signs 06/23/19 06/23/19 06/24/19 21:55 23:30 00:42 Temperature 98.3 F 98.1 F Pulse Rate 75 76 Pulse Rate [ 75 Brachial] Respiratory 18 18 14 Rate Blood Pressure 142/45 134/49 Blood Pressure 170/52 [Left Arm] O2 Sat by Pulse 89 L 96 98 Oximetry 06/24/19 01:01 Temperature 97.9 F Pulse Rate 69 Pulse Rate [ Brachial] Respiratory 16 Rate Blood Pressure 132/45 Blood Pressure [Left Arm] O2 Sat by Pulse 96 Oximetry Medical Decision Making - Medical Decision Making Upon arrival the patient is placed into room 8. A thorough history and physical exam is performed. 12-lead EKG is performed. Laboratory studies were conducted. They did demonstrate a markedly elevated white blood count 27,000. Creatinine is 1.6. Patient does have an elevated troponin 0.043. Urinalysis shows large leukocyte esterase, rare bacteria, few white blood cell clumps. Blood cultures were obtained the patient was given a dose of Rocephin. I did perform a chest x-ray because of the elevated troponin which demonstrates mild bilateral lower lobe pneumonia which appears new. I discussed results of the patient and did feel that she would benefit better from overnight admission for which the patient agreed to. Discussed case with Dr. Fenton who accepted admission. I will consult neurology. Patient remained in stable condition was transported to floor - Lab Data Result diagrams: 06/27/19 06:16 06/27/19 06:16 Lab Results 06/23/19 06/23/19 06/23/19 Range/Units 21:57 22:15 22:15 WBC (3.8-10.6) k/uL RBC (3.80-5.40) m/uL Hgb (11.4-16.0) gm/dL Hct (34.0-46.0) % MCV (80.0-100.0) fL MCH (25.0-35.0) pg MCHC (31.0-37.0) g/dL RDW (11.5-15.5) % Plt Count (150-450) k/uL Neutrophils % % Neutrophils % (Manual) % Band Neutrophils % % Lymphocytes % % Lymphocytes % (Manual) % Monocytes % % Monocytes % (Manual) % Eosinophils % % Basophils % % Neutrophils # (1.3-7.7) k/uL Neutrophils # (Manual) (1.3-7.7) k/uL Lymphocytes # (1.0-4.8) k/uL Lymphocytes # (Manual) (1.0-4.8) k/uL Monocytes # (0-1.0) k/uL Monocytes # (Manual) (0-1.0) k/uL Eosinophils # (0-0.7) k/uL Basophils # (0-0.2) k/uL Nucleated RBCs (0-0) /100 WBC Manual Slide Review Anisocytosis (manual) Macrocytosis PT (9.0-12.0) sec INR (<1.2) APTT (22.0-30.0) sec Sodium 136 L (137-145) mmol/L Potassium 5.0 (3.5-5.1) mmol/L Chloride 105 (98-107) mmol/L Carbon Dioxide 23 (22-30) mmol/L Anion Gap 8 mmol/L BUN 46 H (7-17) mg/dL Creatinine 1.68 H (0.52-1.04) mg/dL Est GFR (CKD-EPI)AfAm 31 (>60 ml/min/1.73 sqM) Est GFR (CKD-EPI)NonAf 27 (>60 ml/min/1.73 sqM) Glucose 213 H (74-99) mg/dL POC Glucose (mg/dL) 223 H (75-99) mg/dL POC Glu Behavioral Medical Director ID Bahman Vickers A Calcium 9.3 (8.4-10.2) mg/dL Total Bilirubin 1.3 (0.2-1.3) mg/dL AST 23 (14-36) U/L ALT 18 (4-34) U/L Alkaline Phosphatase 54 (38-126) U/L Creatine Kinase 42 (30-135) U/L Troponin I 0.043 H* (0.000-0.034) ng/mL Total Protein 6.3 (6.3-8.2) g/dL Albumin 3.6 (3.5-5.0) g/dL Urine Color Urine Appearance (Clear) Urine pH (5.0-8.0) Ur Specific [place] (1.001-1.035) Urine Protein (Negative) Urine Glucose (UA) (Negative) Urine Ketones (Negative) Urine Blood (Negative) Urine Nitrite (Negative) Urine Bilirubin (Negative) Urine Urobilinogen (<2.0) mg/dL Ur Leukocyte Esterase (Negative) Urine RBC (0-5) /hpf Urine WBC (0-5) /hpf Urine WBC Clumps (None) /hpf Ur Squamous Epith Cells (0-4) /hpf Urine Bacteria (None) /hpf Hyaline Casts (0-2) /lpf Urine Mucus (None) /hpf Urine Yeast (Budding) (None) /hpf Coronavirus (PCR) (Not Detectd) 06/23/19 06/23/19 06/23/19 Range/Units 22:52 22:52 23:05 WBC 27.7 H (3.8-10.6) k/uL RBC 3.67 L (3.80-5.40) m/uL Hgb 11.5 (11.4-16.0) gm/dL Hct 35.0 (34.0-46.0) % MCV 95.5 (80.0-100.0) fL MCH 31.3 (25.0-35.0) pg MCHC 32.8 (31.0-37.0) g/dL RDW 15.7 H (11.5-15.5) % Plt Count 290 (150-450) k/uL Neutrophils % % Neutrophils % (Manual) 79 % Band Neutrophils % 13 % Lymphocytes % % Lymphocytes % (Manual) 6 % Monocytes % % Monocytes % (Manual) 2 % Eosinophils % % Basophils % % Neutrophils # (1.3-7.7) k/uL Neutrophils # (Manual) 25.40 H (1.3-7.7) k/uL Lymphocytes # (1.0-4.8) k/uL Lymphocytes # (Manual) 1.66 (1.0-4.8) k/uL Monocytes # (0-1.0) k/uL Monocytes # (Manual) 0.55 (0-1.0) k/uL Eosinophils # (0-0.7) k/uL Basophils # (0-0.2) k/uL Nucleated RBCs 0 (0-0) /100 WBC Manual Slide Review Performed Anisocytosis (manual) Present Macrocytosis PT 10.7 (9.0-12.0) sec INR 1.0 (<1.2) APTT 20.6 L (22.0-30.0) sec Sodium (137-145) mmol/L Potassium (3.5-5.1) mmol/L Chloride (98-107) mmol/L Carbon Dioxide (22-30) mmol/L Anion Gap mmol/L BUN (7-17) mg/dL Creatinine (0.52-1.04) mg/dL Est GFR (CKD-EPI)AfAm (>60 ml/min/1.73 sqM) Est GFR (CKD-EPI)NonAf (>60 ml/min/1.73 sqM) Glucose (74-99) mg/dL POC Glucose (mg/dL) (75-99) mg/dL POC Glu Behavioral Medical Director ID Calcium (8.4-10.2) mg/dL Total Bilirubin (0.2-1.3) mg/dL AST (14-36) U/L ALT (4-34) U/L Alkaline Phosphatase (38-126) U/L Creatine Kinase (30-135) U/L Troponin I (0.000-0.034) ng/mL Total Protein (6.3-8.2) g/dL Albumin (3.5-5.0) g/dL Urine Color Yellow Urine Appearance Cloudy H (Clear) Urine pH 5.0 (5.0-8.0) Ur Specific [place] 1.019 (1.001-1.035) Urine Protein Trace H (Negative) Urine Glucose (UA) Negative (Negative) Urine Ketones Negative (Negative) Urine Blood Trace H (Negative) Urine Nitrite Negative (Negative) Urine Bilirubin Negative (Negative) Urine Urobilinogen <2.0 (<2.0) mg/dL Ur Leukocyte Esterase Large H (Negative) Urine RBC 21 H (0-5) /hpf Urine WBC 13 H (0-5) /hpf Urine WBC Clumps Few H (None) /hpf Ur Squamous Epith Cells 2 (0-4) /hpf Urine Bacteria Rare H (None) /hpf Hyaline Casts 61 H (0-2) /lpf Urine Mucus Rare H (None) /hpf Urine Yeast (Budding) Few H (None) /hpf Coronavirus (PCR) (Not Detectd) 06/24/19 06/24/19 06/24/19 Range/Units 07:55 11:31 16:27 WBC (3.8-10.6) k/uL RBC (3.80-5.40) m/uL Hgb (11.4-16.0) gm/dL Hct (34.0-46.0) % MCV (80.0-100.0) fL MCH (25.0-35.0) pg MCHC (31.0-37.0) g/dL RDW (11.5-15.5) % Plt Count (150-450) k/uL Neutrophils % % Neutrophils % (Manual) % Band Neutrophils % % Lymphocytes % % Lymphocytes % (Manual) % Monocytes % % Monocytes % (Manual) % Eosinophils % % Basophils % % Neutrophils # (1.3-7.7) k/uL Neutrophils # (Manual) (1.3-7.7) k/uL Lymphocytes # (1.0-4.8) k/uL Lymphocytes # (Manual) (1.0-4.8) k/uL Monocytes # (0-1.0) k/uL Monocytes # (Manual) (0-1.0) k/uL Eosinophils # (0-0.7) k/uL Basophils # (0-0.2) k/uL Nucleated RBCs (0-0) /100 WBC Manual Slide Review Anisocytosis (manual) Macrocytosis PT (9.0-12.0) sec INR (<1.2) APTT (22.0-30.0) sec Sodium (137-145) mmol/L Potassium (3.5-5.1) mmol/L Chloride (98-107) mmol/L Carbon Dioxide (22-30) mmol/L Anion Gap mmol/L BUN (7-17) mg/dL Creatinine (0.52-1.04) mg/dL Est GFR (CKD-EPI)AfAm (>60 ml/min/1.73 sqM) Est GFR (CKD-EPI)NonAf (>60 ml/min/1.73 sqM) Glucose (74-99) mg/dL POC Glucose (mg/dL) 249 H 221 H (75-99) mg/dL POC Glu Behavioral Medical Director ID Bolday, Leyla Bolday, Leyla Calcium (8.4-10.2) mg/dL Total Bilirubin (0.2-1.3) mg/dL AST (14-36) U/L ALT (4-34) U/L Alkaline Phosphatase (38-126) U/L Creatine Kinase (30-135) U/L Troponin I 0.039 H* (0.000-0.034) ng/mL Total Protein (6.3-8.2) g/dL Albumin (3.5-5.0) g/dL Urine Color Urine Appearance (Clear) Urine pH (5.0-8.0) Ur Specific [place] (1.001-1.035) Urine Protein (Negative) Urine Glucose (UA) (Negative) Urine Ketones (Negative) Urine Blood (Negative) Urine Nitrite (Negative) Urine Bilirubin (Negative) Urine Urobilinogen (<2.0) mg/dL Ur Leukocyte Esterase (Negative) Urine RBC (0-5) /hpf Urine WBC (0-5) /hpf Urine WBC Clumps (None) /hpf Ur Squamous Epith Cells (0-4) /hpf Urine Bacteria (None) /hpf Hyaline Casts (0-2) /lpf Urine Mucus (None) /hpf Urine Yeast (Budding) (None) /hpf Coronavirus (PCR) (Not Detectd) 06/24/19 06/24/19 06/24/19 Range/Units 16:33 16:33 16:37 WBC 16.6 H (3.8-10.6) k/uL RBC 3.39 L (3.80-5.40) m/uL Hgb 10.5 L (11.4-16.0) gm/dL Hct 32.6 L (34.0-46.0) % MCV 96.3 (80.0-100.0) fL MCH 30.8 (25.0-35.0) pg MCHC 32.0 (31.0-37.0) g/dL RDW 15.7 H (11.5-15.5) % Plt Count 241 (150-450) k/uL Neutrophils % 92 % Neutrophils % (Manual) % Band Neutrophils % % Lymphocytes % 3 % Lymphocytes % (Manual) % Monocytes % 4 % Monocytes % (Manual) % Eosinophils % 0 % Basophils % 0 % Neutrophils # 15.3 H (1.3-7.7) k/uL Neutrophils # (Manual) (1.3-7.7) k/uL Lymphocytes # 0.5 L (1.0-4.8) k/uL Lymphocytes # (Manual) (1.0-4.8) k/uL Monocytes # 0.7 (0-1.0) k/uL Monocytes # (Manual) (0-1.0) k/uL Eosinophils # 0.0 (0-0.7) k/uL Basophils # 0.0 (0-0.2) k/uL Nucleated RBCs (0-0) /100 WBC Manual Slide Review Anisocytosis (manual) Macrocytosis PT (9.0-12.0) sec INR (<1.2) APTT (22.0-30.0) sec Sodium 137 (137-145) mmol/L Potassium 4.8 (3.5-5.1) mmol/L Chloride 104 (98-107) mmol/L Carbon Dioxide 26 (22-30) mmol/L Anion Gap 7 mmol/L BUN 45 H (7-17) mg/dL Creatinine 1.41 H (0.52-1.04) mg/dL Est GFR (CKD-EPI)AfAm 39 (>60 ml/min/1.73 sqM) Est GFR (CKD-EPI)NonAf 34 (>60 ml/min/1.73 sqM) Glucose 154 H (74-99) mg/dL POC Glucose (mg/dL) 195 H (75-99) mg/dL POC Glu Behavioral Medical Director ID Leyla Olvera Calcium 9.0 (8.4-10.2) mg/dL Total Bilirubin 0.9 (0.2-1.3) mg/dL AST 18 (14-36) U/L ALT 15 (4-34) U/L Alkaline Phosphatase 57 (38-126) U/L Creatine Kinase (30-135) U/L Troponin I (0.000-0.034) ng/mL Total Protein 5.8 L (6.3-8.2) g/dL Albumin 3.2 L (3.5-5.0) g/dL Urine Color Urine Appearance (Clear) Urine pH (5.0-8.0) Ur Specific [place] (1.001-1.035) Urine Protein (Negative) Urine Glucose (UA) (Negative) Urine Ketones (Negative) Urine Blood (Negative) Urine Nitrite (Negative) Urine Bilirubin (Negative) Urine Urobilinogen (<2.0) mg/dL Ur Leukocyte Esterase (Negative) Urine RBC (0-5) /hpf Urine WBC (0-5) /hpf Urine WBC Clumps (None) /hpf Ur Squamous Epith Cells (0-4) /hpf Urine Bacteria (None) /hpf Hyaline Casts (0-2) /lpf Urine Mucus (None) /hpf Urine Yeast (Budding) (None) /hpf Coronavirus (PCR) (Not Detectd) 06/24/19 06/24/19 06/25/19 Range/Units 19:21 20:50 05:43 WBC 13.8 H (3.8-10.6) k/uL RBC 3.18 L (3.80-5.40) m/uL Hgb 10.1 L (11.4-16.0) gm/dL Hct 31.3 L (34.0-46.0) % MCV 98.5 (80.0-100.0) fL MCH 31.6 (25.0-35.0) pg MCHC 32.1 (31.0-37.0) g/dL RDW 15.7 H (11.5-15.5) % Plt Count 230 (150-450) k/uL Neutrophils % 88 % Neutrophils % (Manual) % Band Neutrophils % % Lymphocytes % 4 % Lymphocytes % (Manual) % Monocytes % 5 % Monocytes % (Manual) % Eosinophils % 2 % Basophils % 0 % Neutrophils # 12.2 H (1.3-7.7) k/uL Neutrophils # (Manual) (1.3-7.7) k/uL Lymphocytes # 0.5 L (1.0-4.8) k/uL Lymphocytes # (Manual) (1.0-4.8) k/uL Monocytes # 0.7 (0-1.0) k/uL Monocytes # (Manual) (0-1.0) k/uL Eosinophils # 0.3 (0-0.7) k/uL Basophils # 0.0 (0-0.2) k/uL Nucleated RBCs (0-0) /100 WBC Manual Slide Review Anisocytosis (manual) Macrocytosis Slight PT (9.0-12.0) sec INR (<1.2) APTT (22.0-30.0) sec Sodium (137-145) mmol/L Potassium (3.5-5.1) mmol/L Chloride (98-107) mmol/L Carbon Dioxide (22-30) mmol/L Anion Gap mmol/L BUN (7-17) mg/dL Creatinine (0.52-1.04) mg/dL Est GFR (CKD-EPI)AfAm (>60 ml/min/1.73 sqM) Est GFR (CKD-EPI)NonAf (>60 ml/min/1.73 sqM) Glucose (74-99) mg/dL POC Glucose (mg/dL) 153 H (75-99) mg/dL POC Glu Behavioral Medical Director ID Brendan Fischer Calcium (8.4-10.2) mg/dL Total Bilirubin (0.2-1.3) mg/dL AST (14-36) U/L ALT (4-34) U/L Alkaline Phosphatase (38-126) U/L Creatine Kinase (30-135) U/L Troponin I (0.000-0.034) ng/mL Total Protein (6.3-8.2) g/dL Albumin (3.5-5.0) g/dL Urine Color Urine Appearance (Clear) Urine pH (5.0-8.0) Ur Specific [place] (1.001-1.035) Urine Protein (Negative) Urine Glucose (UA) (Negative) Urine Ketones (Negative) Urine Blood (Negative) Urine Nitrite (Negative) Urine Bilirubin (Negative) Urine Urobilinogen (<2.0) mg/dL Ur Leukocyte Esterase (Negative) Urine RBC (0-5) /hpf Urine WBC (0-5) /hpf Urine WBC Clumps (None) /hpf Ur Squamous Epith Cells (0-4) /hpf Urine Bacteria (None) /hpf Hyaline Casts (0-2) /lpf Urine Mucus (None) /hpf Urine Yeast (Budding) (None) /hpf Coronavirus (PCR) Not Detected (Not Detectd) 06/25/19 06/25/19 06/25/19 Range/Units 05:43 06:35 11:28 WBC (3.8-10.6) k/uL RBC (3.80-5.40) m/uL Hgb (11.4-16.0) gm/dL Hct (34.0-46.0) % MCV (80.0-100.0) fL MCH (25.0-35.0) pg MCHC (31.0-37.0) g/dL RDW (11.5-15.5) % Plt Count (150-450) k/uL Neutrophils % % Neutrophils % (Manual) % Band Neutrophils % % Lymphocytes % % Lymphocytes % (Manual) % Monocytes % % Monocytes % (Manual) % Eosinophils % % Basophils % % Neutrophils # (1.3-7.7) k/uL Neutrophils # (Manual) (1.3-7.7) k/uL Lymphocytes # (1.0-4.8) k/uL Lymphocytes # (Manual) (1.0-4.8) k/uL Monocytes # (0-1.0) k/uL Monocytes # (Manual) (0-1.0) k/uL Eosinophils # (0-0.7) k/uL Basophils # (0-0.2) k/uL Nucleated RBCs (0-0) /100 WBC Manual Slide Review Anisocytosis (manual) Macrocytosis PT (9.0-12.0) sec INR (<1.2) APTT (22.0-30.0) sec Sodium 139 (137-145) mmol/L Potassium 4.3 (3.5-5.1) mmol/L Chloride 107 (98-107) mmol/L Carbon Dioxide 25 (22-30) mmol/L Anion Gap 7 mmol/L BUN 39 H (7-17) mg/dL Creatinine 1.24 H (0.52-1.04) mg/dL Est GFR (CKD-EPI)AfAm 45 (>60 ml/min/1.73 sqM) Est GFR (CKD-EPI)NonAf 39 (>60 ml/min/1.73 sqM) Glucose 146 H (74-99) mg/dL POC Glucose (mg/dL) 162 H 139 H (75-99) mg/dL POC Glu Behavioral Medical Director Vilma Rodriguez Brittany Calcium 8.8 (8.4-10.2) mg/dL Total Bilirubin 0.6 (0.2-1.3) mg/dL AST 17 (14-36) U/L ALT 14 (4-34) U/L Alkaline Phosphatase 53 (38-126) U/L Creatine Kinase (30-135) U/L Troponin I (0.000-0.034) ng/mL Total Protein 5.5 L (6.3-8.2) g/dL Albumin 2.9 L (3.5-5.0) g/dL Urine Color Urine Appearance (Clear) Urine pH (5.0-8.0) Ur Specific [place] (1.001-1.035) Urine Protein (Negative) Urine Glucose (UA) (Negative) Urine Ketones (Negative) Urine Blood (Negative) Urine Nitrite (Negative) Urine Bilirubin (Negative) Urine Urobilinogen (<2.0) mg/dL Ur Leukocyte Esterase (Negative) Urine RBC (0-5) /hpf Urine WBC (0-5) /hpf Urine WBC Clumps (None) /hpf Ur Squamous Epith Cells (0-4) /hpf Urine Bacteria (None) /hpf Hyaline Casts (0-2) /lpf Urine Mucus (None) /hpf Urine Yeast (Budding) (None) /hpf Coronavirus (PCR) (Not Detectd) - EKG Data EKG Comments: EKG demonstrates normal sinus rhythm with a ventricular rate of 80. MN interval 138. QRS 96. QTC of 431. No acute ST segment elevation or depressions concerning for ischemic changes Disposition Clinical Impression: Altered mental status, Left-sided weakness, Leukocytosis, UTI (urinary tract infection) Disposition: ADMITTED IP TO THIS [facility] Condition: Stable Is patient prescribed a controlled substance at d/c from ED?: No Decision to Admit Reason: Admit from EC Decision Date: 06/24/19 Decision Time: 00:01
[2019-06-23 23:14] LABS: HGB 11.5 gm/dL (11.4-16.0); MCH 31.3 pg (25.0-35.0); MCHC 32.8 g/dL (31.0-37.0); MCV 95.5 fL (80.0-100.0); Mean Platelet Volume 8.3; Platelet Count 290 k/uL (150-450); RBC 3.67 m/uL (3.80-5.40); RDW 15.7 % (11.5-15.5); WBC 27.7 k/uL (3.8-10.6)
[2019-06-23 23:16] LABS: Prothrombin Time 10.7 sec (9.0-12.0)
[2019-06-23 23:35] LABS: Appearance,Urine Cloudy (Clear); Bacteria,Urine Rare /hpf; Bilirubin,Urine Negative (Negative); Blood,Urine Trace (Negative); Budding Yeast,Urine Few /hpf; Color,Urine Yellow; Glucose,Urine (UA) Negative (Negative); Hyaline Casts,Urine 61 /lpf (0-2); Ketones,Urine Negative (Negative); Leukocyte Esterase,Urine Large (Negative); Mucus,Urine Rare /hpf; Nitrite,Urine Negative (Negative); Protein,Urine Trace (Negative); RBC,Urine 21 /hpf (0-5); Specific Gravity,Urine 1.019 (1.001-1.035); Squamous Epithelial Cell,Urine 2 /hpf (0-4); Urobilinogen,Urine <2.0 mg/dL (<2.0); WBC,Urine 13 /hpf (0-5)
--- NOTE | 2019-06-23 23:48 | XR ---
EXAMINATION TYPE: XR chest 1V DATE OF EXAM: 06/23/2019 COMPARISON: 06/04/2019 HISTORY: Cough. Chest pain. TECHNIQUE: FINDINGS: There is some patchy infiltrate in both lower lobes. There is no gross heart failure. Heart is slightly enlarged. There are are chest leads. Bony thorax appears intact. IMPRESSION: There is mild bilateral lower lobe pneumonia that appears new compared to last exam. Mild cardiomegaly.
[2019-06-23 23:56] LABS: Partial Thromboplastin Time 20.6 sec (22.0-30.0)
[2019-06-23] MEDS ORDERED: cefTRIAXone IN SWFI 1,000 MG/10 ML SYRINGE IVP STA (23:56)
[2019-06-24] MEDS ORDERED: NALOXONE 0.4 MG/ML 1 ML VIAL IV PRN (00:03)
[2019-06-24 00:08] LABS: Anisocytosis (M) Present; Band Neutrophils % 13 %; Lymphocytes # (M) 1.66 k/uL (1.0-4.8); Monocytes # (M) 0.55 k/uL (0-1.0); Neutrophils % (M) 79 %; Nucleated Red Blood Cells 0 /100 WBC (0-0); Total Cells Counted 100
[2019-06-24] MEDS: SODIUM CHLORIDE 0.9% 1,000 ML IV SCH ×2 (00:22→13:07)
[2019-06-24 07:57] LABS: Glucose,Whole Blood 249 mg/dL (75-99)
[2019-06-24] MEDS ORDERED: MAGNESIUM HYDROXIDE 2,400 MG/10 ML CUP PO PRN (07:57)
[2019-06-24] MEDS ORDERED: NA PHOS,M-B/NA PHOS,DI-BA 133 ML ENEMA RECTAL PRN (07:57)
[2019-06-24] MEDS ORDERED: ACETAMINOPHEN TAB 500 MG TAB PO PRN (07:57)
[2019-06-24] MEDS ORDERED: hydrALAZINE HCL 25 MG TAB PO PRN (07:57)
[2019-06-24] MEDS ORDERED: BISACODYL 10 MG SUPP RECTAL PRN (07:57)
[2019-06-24] MEDS ORDERED: NON FORMULARY DRUG (Glucerna Shake 1 CAN) PO SCH (08:00)
[2019-06-24] MEDS: amLODIPine 2.5 MG TAB PO SCH (09:35)
[2019-06-24] MEDS: LACOSAMIDE 50 MG TABLET PO SCH ×2 (09:35→16:36)
[2019-06-24] MEDS: FUROSEMIDE 20 MG TAB PO SCH (09:36)
[2019-06-24] MEDS: POTASSIUM CHLORIDE ER 20 MEQ TAB.ER PO SCH (09:36)
[2019-06-24] MEDS: MENTHOL-ZINC OXIDE OINT 113 GM TUBE TOPICAL SCH ×2 (10:23→20:50)
[2019-06-24 11:34] LABS: Glucose,Whole Blood 221 mg/dL (75-99)
[2019-06-24] MEDS: INSULIN ASPART (NovoLOG) 100 UNIT/ML VIAL SQ SCH ×3 (12:30→20:59)
--- NOTE | 2019-06-24 16:38 | P.HPIM ---
History of Present Illness H&P Date: 06/24/19 Flory Sims is an 88-year-old female with multiple recent admissions to the hospital, she is currently a resident at [facility], she is having multiple episodes of loss of consciousness and and responsiveness lasting from a few minutes to a few hours, she was admitted to the hospital 3 times, she was evaluated by neurology, no evidence of acute stroke, patient had an MRI of the brain last admission, it was felt by neurology that the patient may be having seizure activity with prolonged post ictal state she was started on Keppra however she continued to have similar episodes on her next admission Keppra was discontinued and patient was started on Vimpat. Patient was stable for a few days at the [facility] however she started having episodes of loss of consciousness again, it was felt by the nurse at the [facility] that patient was weaker on the left side, hence she was transferred to emergency room for evaluation of a possible stroke. Patient was evaluated in [facility] emergency room there was no evidence of weakness on the left side however she had evidence of urinary tract infection and white blood count elevated at 27,000 she was started on IV Rocephin and was admitted to medical floor. Consultation for neurology and infectious disease were initiated. Past Medical History Past Medical History: Cancer, COPD, Diabetes Mellitus, Hyperlipidemia, Hypertension, Osteoarthritis (OA), Renal Disease, Thyroid Disorder Additional Past Medical History / Comment(s): questionable Seizures recently jaswinder bryan on Keppra (last admission) History of Any Multi-Drug Resistant Organisms: None Reported Past Surgical History: Hysterectomy Additional Past Surgical History / Comment(s): Back surgery, abdominal surgery Past Anesthesia/Blood Transfusion Reactions: Unable to Obtain Past Psychological History: Unable to Obtain Smoking Status: Never smoker Past Alcohol Use History: None Reported Past Drug Use History: None Reported - Past Family History Father History Unknown: Yes Mother History Unknown: Yes Medications and Allergies Home Medications Medication Instructions Recorded Confirmed Type INSULIN LISPRO (HumaLOG) [humaLOG] See Protocol SQ ACHS 06/10/19 06/23/19 History Pravastatin Sodium [Pravachol] 40 mg PO HS@2100 06/10/19 06/23/19 History Aspirin 325 mg PO DAILY@1700 06/16/19 06/23/19 History Furosemide [Lasix] 20 mg PO DAILY@0800 06/16/19 06/23/19 History Na Phos,M-B/Na Phos,Di-Ba [Fleet 133 ml RECTAL DAILY PRN 06/16/19 06/23/19 History Adult] amLODIPine [Norvasc] 2.5 mg PO DAILY@0800 06/16/19 06/23/19 History hydrALAZINE HCL [Apresoline] 25 mg PO Q8H PRN 06/16/19 06/23/19 History Acetaminophen Tab [Tylenol] 500 mg PO Q6H PRN tab 06/17/19 06/23/19 Rx Bisacodyl 10 mg RECTAL DAILY PRN 06/23/19 06/23/19 History Glucerna Shake 1 can PO TID@0800,1200,1700 06/23/19 06/23/19 History Lacosamide [Vimpat] 100 mg PO BID@0800,1700 06/23/19 06/23/19 History Magnesium Hydroxide [Milk of 7,200 mg PO DAILY PRN 06/23/19 06/23/19 History Magnesia Concentrate] Menthol-Zinc Oxide Oint 1 applic TOPICAL BID 06/23/19 06/23/19 History [Calmoseptine Oint] Potassium Chloride ER [K-Dur 20] 20 meq PO DAILY@0800 06/23/19 06/23/19 History Allergies Allergy/AdvReac Type Severity Reaction Status Date / Time No Known Allergies Allergy Verified 06/23/19 22:02 Physical Exam Vitals: Vital Signs Temp Pulse Pulse Resp BP BP Pulse Ox 06/24/19 15:00 98.5 F 70 17 132/64 100 06/24/19 07:00 98.2 F 70 17 153/56 99 06/24/19 04:00 75 16 06/24/19 01:01 97.9 F 69 16 132/45 96 06/24/19 00:42 98.1 F 75 14 170/52 98 06/23/19 23:30 76 18 134/49 96 06/23/19 21:55 98.3 F 75 18 142/45 89 L Intake and Output 06/24/19 06/24/19 06/24/19 06:59 14:59 22:59 Intake Total 150 600 Balance 150 600 Intake: IV 600 Sodium Chloride 0.9% 1, 600 000 ml @ 75 mls/hr IV . [id number] [facility] Rx#:[id number] Intake, IV Titration 150 Amount Sodium Chloride 0.9% 1, 150 000 ml @ 75 mls/hr IV . [id number] [facility] Rx#:[id number] Other: Voiding Method Diaper Weight 72.575 kg In general patient is alert confused in no apparent distress HEENT head normocephalic and atraumatic Neck is supple no JVD no goiter no lymphadenopathy Chest exam reveals a few scattered crackles no wheezing Cardiac exam reveals regular heart sounds no gallops no murmurs Abdomen is soft nontender no organomegaly with normal bowel sounds Extremity exam reveals no edema no cyanosis or clubbing Neurological examination reveals confusion without any focal neurological deficit specifically there is no weakness on the left side involving the upper or lower extremity as compared to the left at this time Results CBC & Chem 7: 06/23/19 22:52 06/23/19 22:15 Labs: Abnormal Lab Results - Last 24 Hours (Table) 06/23/19 06/23/19 06/23/19 Range/Units 21:57 22:15 22:15 WBC (3.8-10.6) k/uL RBC (3.80-5.40) m/uL RDW (11.5-15.5) % Neutrophils # (Manual) (1.3-7.7) k/uL APTT (22.0-30.0) sec Sodium 136 L (137-145) mmol/L BUN 46 H (7-17) mg/dL Creatinine 1.68 H (0.52-1.04) mg/dL Glucose 213 H (74-99) mg/dL POC Glucose (mg/dL) 223 H (75-99) mg/dL Troponin I 0.043 H* (0.000-0.034) ng/mL Urine Appearance (Clear) Urine Protein (Negative) Urine Blood (Negative) Ur Leukocyte Esterase (Negative) Urine RBC (0-5) /hpf Urine WBC (0-5) /hpf Urine WBC Clumps (None) /hpf Urine Bacteria (None) /hpf Hyaline Casts (0-2) /lpf Urine Mucus (None) /hpf Urine Yeast (Budding) (None) /hpf 06/23/19 06/23/19 06/23/19 Range/Units 22:52 22:52 23:05 WBC 27.7 H (3.8-10.6) k/uL RBC 3.67 L (3.80-5.40) m/uL RDW 15.7 H (11.5-15.5) % Neutrophils # (Manual) 25.40 H (1.3-7.7) k/uL APTT 20.6 L (22.0-30.0) sec Sodium (137-145) mmol/L BUN (7-17) mg/dL Creatinine (0.52-1.04) mg/dL Glucose (74-99) mg/dL POC Glucose (mg/dL) (75-99) mg/dL Troponin I (0.000-0.034) ng/mL Urine Appearance Cloudy H (Clear) Urine Protein Trace H (Negative) Urine Blood Trace H (Negative) Ur Leukocyte Esterase Large H (Negative) Urine RBC 21 H (0-5) /hpf Urine WBC 13 H (0-5) /hpf Urine WBC Clumps Few H (None) /hpf Urine Bacteria Rare H (None) /hpf Hyaline Casts 61 H (0-2) /lpf Urine Mucus Rare H (None) /hpf Urine Yeast (Budding) Few H (None) /hpf 06/24/19 06/24/19 Range/Units 07:55 11:31 WBC (3.8-10.6) k/uL RBC (3.80-5.40) m/uL RDW (11.5-15.5) % Neutrophils # (Manual) (1.3-7.7) k/uL APTT (22.0-30.0) sec Sodium (137-145) mmol/L BUN (7-17) mg/dL Creatinine (0.52-1.04) mg/dL Glucose (74-99) mg/dL POC Glucose (mg/dL) 249 H 221 H (75-99) mg/dL Troponin I (0.000-0.034) ng/mL Urine Appearance (Clear) Urine Protein (Negative) Urine Blood (Negative) Ur Leukocyte Esterase (Negative) Urine RBC (0-5) /hpf Urine WBC (0-5) /hpf Urine WBC Clumps (None) /hpf Urine Bacteria (None) /hpf Hyaline Casts (0-2) /lpf Urine Mucus (None) /hpf Urine Yeast (Budding) (None) /hpf Microbiology - Last 24 Hours (Table) 06/23/19 23:05 Urine Culture - Preliminary Urine,Catheterized Thrombosis Risk Factor Assmnt - Choose All That Apply Each Risk Factor Represents 3 Points: Age 75 years or older Thrombosis Risk Factor Assessment Total Risk Factor Score: 3 Thrombosis Risk Factor Assessment Level: Moderate Risk Assessment and Plan Plan: #1 episodes of unresponsiveness, cause is unclear, neurology consultation requested again, on previous admission patient was evaluated for similar episodes, it was felt by neurology that this may represent seizure activity, she was started on Keppra, subsequently this was changed to Vimpat, patient was still having episodes however less frequently #2 urinary tract infection with sepsis elevated white blood count of 27,000 elevated lactic acid, patient was started on IV fluid and IV Rocephin, infe ctious disease consultation requested Urology consultation requested to assess cause of recurrent urinary tract infections #3 history of hypertension maintained on amlodipine and hydralazine continue #4 history of [id number] diabetes mellitus #5 slight elevation in troponin level cardiology consultation was requested #6 evidence of dehydration with acute kidney injury patient is maintained on IV fluid normal saline at 75 mL an hour #7 history of hyperlipidemia maintained on Pravachol At this time patient was started on IV fluid and IV Rocephin Neurology infectious disease and urology consultation requested Son contacted and given update on his mother's condition Will follow in a.m.
[2019-06-24 16:41] LABS: Glucose,Whole Blood 195 mg/dL (75-99)
[2019-06-24] MEDS ORDERED: ASPIRIN 325 MG TAB PO SCH (17:00)
[2019-06-24 17:10] LABS: Basophils % (A) 0 %; Eosinophils % (A) 0 %; HCT 32.6 % (34.0-46.0); HGB 10.5 gm/dL (11.4-16.0); Lymphocytes # (A) 0.5 k/uL (1.0-4.8); Lymphocytes % (A) 3 %; MCH 30.8 pg (25.0-35.0); MCV 96.3 fL (80.0-100.0); Monocytes # (A) 0.7 k/uL (0-1.0); Monocytes % (A) 4 %; Neutrophils # (A) 15.3 k/uL (1.3-7.7); Neutrophils % (A) 92 %; Platelet Count 241 k/uL (150-450); RBC 3.39 m/uL (3.80-5.40); RDW 15.7 % (11.5-15.5); WBC 16.6 k/uL (3.8-10.6)
[2019-06-24 17:17] LABS: Albumin 3.2 g/dL (3.5-5.0); Potassium 4.8 mmol/L (3.5-5.1); Total Bilirubin 0.9 mg/dL (0.2-1.3); Total Protein 5.8 g/dL (6.3-8.2)
[2019-06-24] MEDS: CLOPIDOGREL 75 MG TAB PO SCH ×2 (17:45→18:05)
--- NOTE | 2019-06-24 17:55 | P.CNNES ---
History of Present Illness Consult date: 06/24/19 Requesting physician: Alma Benoit Reason for Consult: Acute recurrent encephalopathy History of Present Illness: Patient is a 88-year-old female, well-known to me from multiple recent admissions to the hospital. Patient has history of COPD, diabetes, possible seizure disorder. Patient was brought to the hospital from [facility] for altered mental status. According to the transfer note from the sn[facility], it was reported patient had left-sided increased weakness. Left pupil was not as reactive, not responding to questions with increased lethargy. Her blood pressure in the transfer form mentioned blood pressure 135/77, pulse 83 respiration 22 temperature 98.4. According to the ED records, patient was garcia sferred because she became unresponsive and had some left-sided weakness. By the time patient arrived to the ER, patient was alert and was following some commands. She had difficulty answering questions. Patient did not complain of headaches or visual changes, no chest pain shortness of breath or nausea. She is currently being treated for UTI. This is her third admission for similar problems, with episode of unresponsiveness. Patient had abnormal EEGs in the past. Possible seizures were considered. Patient was initially on Keppra, after she was diagnosed with possible seizure disorder, but was noted to have significant behavioral problems. She was switched to Vimpat 100 mg twice a day on the last admission. Patient's chest x-ray showed mild bilateral lower lobe pneumonia that appears new compared to last exam. Mild cardiomegaly. EKG shows normal sinus rhythm. Patient's white blood cells were 27.7 with elevated neutrophils 25.4. BUN is 45, creatinine 1.41, electrolytes normal. Liver panel normal. UA from yesterday showed large amount of leukocyte Estrace, 13 WBCs, rare bacteria. Urine culture so far negative. Patient's MRA of the neck without contrast from 06/10/2019 shows focal loss of flow related enhancement within the bilateral ICAs and the cervical cranial junction is. Given the symmetric, skull base artifact is favored over focal severe stenosis. 10. CT angiography may be helpful to further evaluate. Otherwise dominant left vertebral artery. Mild, less than 50% stenosis left carotid bulb. Review of Systems ROS unobtainable: due to mental status (Denies headache) Past Medical History Past Medical History: Cancer, COPD, Diabetes Mellitus, Hyperlipidemia, Hypertension, Osteoarthritis (OA), Renal Disease, Thyroid Disorder Additional Past Medical History / Comment(s): questionable Seizures recently placed on Keppra (last admission) History of Any Multi-Drug Resistant Organisms: None Reported Past Surgical History: Hysterectomy Additional Past Surgical History / Comment(s): Back surgery, abdominal surgery Past Anesthesia/Blood Transfusion Reactions: Unable to Obtain Past Psychological History: Unable to Obtain Smoking Status: Never smoker Past Alcohol Use History: None Reported Past Drug Use History: None Reported - Past Family History Father History Unknown: Yes Mother History Unknown: Yes Medications and Allergies Home Medications Medication Instructions Recorded Confirmed Type INSULIN LISPRO (HumaLOG) [humaLOG] See Protocol SQ ACHS 06/10/19 06/23/19 History Pravastatin Sodium [Pravachol] 40 mg PO HS@2100 06/10/19 06/23/19 History Aspirin 325 mg PO DAILY@1700 06/16/19 06/23/19 History Furosemide [Lasix] 20 mg PO DAILY@0800 06/16/19 06/23/19 History Na Phos,M-B/Na Phos,Di-Ba [Fleet 133 ml RECTAL DAILY PRN 06/16/19 06/23/19 History Adult] amLODIPine [Norvasc] 2.5 mg PO DAILY@0800 06/16/19 06/23/19 History hydrALAZINE HCL [Apresoline] 25 mg PO Q8H PRN 06/16/19 06/23/19 History Acetaminophen Tab [Tylenol] 500 mg PO Q6H PRN tab 06/17/19 06/23/19 Rx Bisacodyl 10 mg RECTAL DAILY PRN 06/23/19 06/23/19 History Glucerna Shake 1 can PO TID@0800,1200,1700 06/23/19 06/23/19 History Lacosamide [Vimpat] 100 mg PO BID@0800,1700 06/23/19 06/23/19 History Magnesium Hydroxide [Milk of 7,200 mg PO DAILY PRN 06/23/19 06/23/19 History Magnesia Concentrate] Menthol-Zinc Oxide Oint 1 applic TOPICAL BID 06/23/19 06/23/19 History [Calmoseptine Oint] Potassium Chloride ER [K-Dur 20] 20 meq PO DAILY@0800 04/16/20 04/16/20 History Allergies Allergy/AdvReac Type Severity Reaction Status Date / Time No Known Allergies Allergy Verified 06/23/19 22:02 Physical Examination - Vital Signs Vital Signs: Vital Signs Temp Pulse Pulse Resp BP BP Pulse Ox 06/24/19 07:00 98.2 F 70 17 153/56 99 06/24/19 04:00 75 16 06/24/19 01:01 97.9 F 69 16 132/45 96 06/24/19 00:42 98.1 F 75 14 170/52 98 06/23/19 23:30 76 18 134/49 96 06/23/19 21:55 98.3 F 75 18 142/45 89 L Intake and Output 06/23/19 06/24/19 06/24/19 22:59 06:59 14:59 Intake Total 150 Balance 150 Intake: Intake, IV Titration 150 Amount Sodium Chloride 0.9% 1, 150 000 ml @ 75 mls/hr IV . [id number] [facility] Rx#:[id number] Other: Voiding Method Diaper Weight 72.575 kg 72.575 kg On examination patient is an elderly female, who is laying in the bed, appears lethargic, slow mentation, very prolonged latency time to answer questions. She was very sleepy, after some attempts, patient did wake up. Patient states it is June and the year is 2019. She knows that she is in [facility]. Speech appears clear with no obvious aphasia or dysarthria. Patient can name and repeat well. Appears actually pupils are round and reacting visual soto could not be tested. Face is symmetric and tongue p rotrudes the midline. Muscle strength appears normal in the arms and legs. Sensory and cerebellar functions could not be tested because of her letharginess. Results - Laboratory Findings CBC and BMP: 06/24/19 16:33 06/24/19 16:33 Abnormal Lab Findings: Abnormal Labs 06/23/19 06/23/19 06/23/19 21:57 22:15 22:15 WBC RBC RDW Neutrophils # (Manual) APTT Sodium 136 L BUN 46 H Creatinine 1.68 H Glucose 213 H POC Glucose (mg/dL) 223 H Troponin I 0.043 H* Urine Appearance Urine Protein Urine Blood Ur Leukocyte Esterase Urine RBC Urine WBC Urine WBC Clumps Urine Bacteria Hyaline Casts Urine Mucus Urine Yeast (Budding) 0406/23/19 06/23/19 22:52 22:52 23:05 WBC 27.7 H RBC 3.67 L RDW 15.7 H Neutrophils # (Manual) 25.40 H APTT 20.6 L Sodium BUN Creatinine Glucose POC Glucose (mg/dL) Troponin I Urine Appearance Cloudy H Urine Protein Trace H Urine Blood Trace H Ur Leukocyte Esterase Large H Urine RBC 21 H Urine WBC 13 H Urine WBC Clumps Few H Urine Bacteria Rare H Hyaline Casts 61 H Urine Mucus Rare H Urine Yeast (Budding) Few H 06/24/19 07:55 WBC RBC RDW Neutrophils # (Manual) APTT Sodium BUN Creatinine Glucose POC Glucose (mg/dL) 249 H Troponin I Urine Appearance Urine Protein Urine Blood Ur Leukocyte Esterase Urine RBC Urine WBC Urine WBC Clumps Urine Bacteria Hyaline Casts Urine Mucus Urine Yeast (Budding) Assessment and Plan Assessment: * Recurrent episodes of left hemiparesis, possible TIAs. Differential also includes focal seizure with postictal Arthur's. * Metabolic encephalopathy. Patient appears to have bilateral pneumonia, questionable UTI. Patient is on Rocephin at this time. * Chronic renal insufficiency * Hypertension * Diabetes * Dyslipidemia Plan: * We will perform an MRI of the brain to rule out CVA. * We will also check MRA of the neck with and without IV contrast to rule out carotid stenosis, as her previous MRA of the neck without contrast showed possibility of bilateral ICA stenosis versus artifact. * Because of possible recurrent TIA, we'll switch from aspirin 325 mg to dual antiplatelet medication, with Plavix 75 mg and aspirin 81 mg. * Pepcid 20 mg twice a day for gastric ulcer prophylaxis. * Continue Vimpat 100 mg twice a day for now. * Treatment of UTI, possible pneumonia as per internal medicine. * Discussed with Dr Fenton in detail. * Dr. Smith will cover neurology service over the weekend.
[2019-06-24] MEDS: PRAVASTATIN SODIUM 40 MG TAB PO SCH (20:49)
[2019-06-24] MEDS: FAMOTIDINE 20 MG TAB PO SCH (20:49)
[2019-06-24 20:51] LABS: Glucose,Whole Blood 153 mg/dL (75-99)
--- NOTE | 2019-06-25 01:23 | CONS ---
CONSULTATION DATE OF SERVICE: 06/24/2019 REASON FOR CONSULTATION: Urinary tract infection. HISTORY OF PRESENT ILLNESS: The patient is an 88-year-old female, past medical history significant for COPD, diabetes, has been presenting from the [facility] for evaluation of mental status changes. Per staff, the patient become unresponsive and did have some left-sided weakness. The patient apparently has been evaluated in this hospital for similar symptoms about 3 times and apparently the patient did have adjustment in her medication. The patient apparently was recently treated for UTI and is now on presentation to the hospital. The patient has been afebrile, the patient was awake and alert. She knows that she was in the hospital. Denies having any headache or URI symptoms. No chest pain, shortness of breath or cough. No abdominal pain and no diarrhea reported by the nursing staff. REVIEW OF SYSTEMS: Positive points have been mentioned in HPI. Rest of the systems are negative. PAST MEDICAL HISTORY: COPD, diabetes mellitus, hyperlipidemia, hypertension, hypothyroidism. osteoarthritis and PAST SURGICAL HISTORY: Cystectomy, back surgery, abdominal surgery. SOCIAL HISTORY: No history of smoking, drinking or drug use. Currently a [facility] resident. FAMILY HISTORY: No pertinent findings noticed. ALLERGIES: No known drug allergies. MEDICATIONS: Medications include the patient is currently on Tylenol, Norvasc, Dulcolax, Calmoseptine, Rocephin 1 g daily, Plavix, Pepcid, Lasix hydralazine, NovoLog, Vimpat, Narcan Pravachol, and IV fluid. PHYSICAL EXAMINATION: On examination, her blood pressure is 115/55 with a pulse of 73, temperature is 97.7. She is 99% on 3 L nasal cannula. General description is an elderly female lying in bed in no distress. No tachypnea or accessory muscle of respiration use. HEENT: Shows slight pallor. No scleral icterus. Oral mucosa membrane is dry. No pharyngeal erythema or thrush. Neck trachea central. No thyromegaly. LUNGS: Unlabored breathing, clear to auscultation anteriorly. No wheeze or crackles. Heart S1, S2. Regular rate and rhythm. No added sound. ABDOMEN: Soft, no tenderness. No rigidity. EXTREMITIES: No edema of the feet. SKIN examination: No rash or mass palpable. NEUROLOGICAL: Patient is awake, alert, oriented. Mood and affect normal. LABS: Hemoglobin is 10.5, white count down to 16, 27.7, BUN of 45, creatinine is 1.41. Troponin mildly elevated. Urine is positive. Genao virus was negative. Chest x-ray was negative for any acute infiltrate. DIAGNOSTIC IMPRESSION AND PLAN: Patient admitted to the hospital with mental status changes which is likely multifactorial in this patient who did have a significant positive with concern for possible symptomatic urinary tract infection. The patient x-ray was suggestive possible pneumonia however the patient denies significant respiratory symptoms. No shortness of breath or any cough. PLAN: 1. Rocephin 1 gram IV daily. 2. Gentle IV fluid. 3. We will follow her clinical condition and culture to further adjust medication if needed thank you for this consultation. We will follow this patient along with you. ALLEGRA / PAYAMN: [id number] /
[2019-06-25] MEDS: SODIUM CHLORIDE 0.9% 1,000 ML IV SCH ×2 (03:00→11:54)
[2019-06-25 06:36] LABS: Glucose,Whole Blood 162 mg/dL (75-99)
[2019-06-25 07:01] LABS: Basophils % (A) 0 %; Eosinophils # (A) 0.3 k/uL (0-0.7); Eosinophils % (A) 2 %; HCT 31.3 % (34.0-46.0); HGB 10.1 gm/dL (11.4-16.0); Lymphocytes # (A) 0.5 k/uL (1.0-4.8); Lymphocytes % (A) 4 %; MCH 31.6 pg (25.0-35.0); MCHC 32.1 g/dL (31.0-37.0); MCV 98.5 fL (80.0-100.0); Macrocytosis Slight; Mean Platelet Volume 9.2; Monocytes # (A) 0.7 k/uL (0-1.0); Monocytes % (A) 5 %; Neutrophils # (A) 12.2 k/uL (1.3-7.7); Neutrophils % (A) 88 %; Platelet Count 230 k/uL (150-450); RBC 3.18 m/uL (3.80-5.40); RDW 15.7 % (11.5-15.5); WBC 13.8 k/uL (3.8-10.6)
[2019-06-25 07:08] LABS: Albumin 2.9 g/dL (3.5-5.0); Calcium 8.8 mg/dL (8.4-10.2); Potassium 4.3 mmol/L (3.5-5.1); Total Bilirubin 0.6 mg/dL (0.2-1.3); Total Protein 5.5 g/dL (6.3-8.2)
[2019-06-25] MEDS: LACOSAMIDE 50 MG TABLET PO SCH ×2 (07:22→17:35)
[2019-06-25] MEDS: INSULIN ASPART (NovoLOG) 100 UNIT/ML VIAL SQ SCH ×4 (07:22→20:16)
[2019-06-25] MEDS: FAMOTIDINE 20 MG TAB PO SCH (07:22)
[2019-06-25] MEDS: ASPIRIN 81 MG PO SCH (07:22)
[2019-06-25] MEDS: amLODIPine 2.5 MG TAB PO SCH (07:22)
[2019-06-25] MEDS: FUROSEMIDE 20 MG TAB PO SCH (07:22)
[2019-06-25] MEDS: POTASSIUM CHLORIDE ER 20 MEQ TAB.ER PO SCH (07:22)
[2019-06-25] MEDS: CLOPIDOGREL 75 MG TAB PO SCH (07:22)
[2019-06-25] MEDS: MENTHOL-ZINC OXIDE OINT 113 GM TUBE TOPICAL SCH ×2 (07:23→20:16)
--- NOTE | 2019-06-25 10:29 | P.CRDCN ---
History of Present Illness Consult date: 06/25/19 Consult reason: other (Elevated troponins) History of present illness: This is an 88-year-old female currently residing at [facility]. She has had multiple recent admissions to the hospital due to episodes of loss of consciousness and and responsiveness lasting from a few minutes to a few hours, she was admitted to the hospital 3 times, she was evaluated by neurology, no evidence of acute stroke, patient had an MRI of the brain last admission, it was felt by neurology that the patient may be having seizure activity with prolonged post ictal state she was started on Keppra however she continued to have similar episodes on her next admission Keppra was discontinued and patient was started on Vimpat. [facility] however she started having episodes of loss of consciousness again, it was felt by the nurse at the prison that patient was weaker on the left side, hence she was transferred to emergency room for evaluation of a possible stroke. Patient was evaluated in the emergency room there was no evidence of weakness on the left side however she had evidence of urinary tract infection and white blood count elevated at 27,000 she was started on IV Rocephin and was admitted to [facility]. Consultation for neurology and infectious disease in place. Consult with cardiology added for elevated troponin. Troponins have been 0.039 and 0.043. Initial blood work also revealed hemoglobin of 11.5, BUN 46 creatinine 1.68. Repeat blood work this morning reveals BUN of 39 and creatinine 1.24, potassium 4.3, WBC 13.8 and hemoglobin 10.1. Coronavirus PCR not detected. Chest x-ray reveals mild bilateral lower lobe pneumonia. Mild cardiomegaly. EKG reveals a sinus rhythm with nonspecific T-wave abnormality unchanged from previous EKG. Echocardiogram performed on June 10 revealed ejection fraction of 60-65%, mild pulmonary hypertension, mild tricuspid regurgitation small pericardial effusion. Review Of Systems: Unable to obtain due to patient's mental status Gen: This is an 88-year-old female. She is resting in bed sleeping. She does arouse to painful stimuli. She is denying any complaints. Patient unable to provide reliable history. VS: Afebrile, heart rate 98, blood pressure 127/60, pulse ox 100% on 4 L nasal cannula. HEENT: Head is atraumatic, normocephalic. Pupils equal, round. Sclerae is anicteric. NECK: Supple. No JVD. No lymphadenopathy. No thyromegaly. LUNGS: Clear to auscultation. No wheezes or rhonchi. No intercostal retractions. HEART: Regular rate and rhythm. No murmur. ABDOMEN: Soft. Bowel sounds are present. No masses. No tenderness. EXTREMITIES: No pedal edema. No calf tenderness. NEUROLOGICAL: Patient opens eyes to verbal and touch stimuli.. Cranial nerves 2 through 12 are grossly intact. Assessment: Episodes of unresponsiveness of unclear etiology Metabolic encephalopathy Urinary tract infection and sepsis Possible pneumonia Mild elevation in troponin not consistent with myocardial injury. Acute kidney injury Hyperlipidemia Hypertension Diabetes mellitus type 2 Plan: Continue amlodipine 2.5 mg daily, hydralazine 25 mg every 8 hours as needed Continue pravastatin 40 mg at bedtime Continue Lasix 20 mg daily oral Continue aspirin 81 mg daily Further recommendations to follow based upon clinical course Thank you kindly for this consultation Cardiology will follow this patient on an as-needed basis. Please feel free to recontact if any issues develop. Nurse practitioner note has been reviewed, I agree with documented findings and plan of care. Patient was seen and examined. Past Medical History Past Medical History: Cancer, COPD, Diabetes Mellitus, Hyperlipidemia, Hypertension, Osteoarthritis (OA), Renal Disease, Thyroid Disorder Additional Past Medical History / Comment(s): questionable Seizures recently placed on Keppra (last admission) History of Any Multi-Drug Resistant Organisms: None Reported Past Surgical History: Hysterectomy Additional Past Surgical History / Comment(s): Back surgery, abdominal surgery Past Anesthesia/Blood Transfusion Reactions: Unable to Obtain Past Psychological History: Unable to Obtain Smoking Status: Never smoker Past Alcohol Use History: None Reported Past Drug Use History: None Reported - Past Family History Father History Unknown: Yes Mother History Unknown: Yes Medications and Allergies Home Medications Medication Instructions Recorded Confirmed Type INSULIN LISPRO (HumaLOG) [humaLOG] See Protocol SQ ACHS 06/10/19 06/23/19 History Pravastatin Sodium [Pravachol] 40 mg PO HS@2100 06/10/19 06/23/19 History Aspirin 325 mg PO DAILY@1700 06/16/19 06/23/19 History Furosemide [Lasix] 20 mg PO DAILY@0800 /11/2606/23/19 History Na Phos,M-B/Na Phos,Di-Ba [Fleet 133 ml RECTAL DAILY PRN 06/16/19 06/23/19 History Adult] amLODIPine [Norvasc] 2.5 mg PO DAILY@0800 06/16/19 06/23/19 History hydrALAZINE HCL [Apresoline] 25 mg PO Q8H PRN 06/16/19 06/23/19 History Acetaminophen Tab [Tylenol] 500 mg PO Q6H PRN tab 06/17/19 06/23/19 Rx Bisacodyl 10 mg RECTAL DAILY PRN 06/23/19 06/23/19 History Glucerna Shake 1 can PO TID@0800,1200,1700 06/23/19 06/23/19 History Lacosamide [Vimpat] 100 mg PO BID@0800,1700 06/23/19 06/23/19 History Magnesium Hydroxide [Milk of 7,200 mg PO DAILY PRN 06/23/19 06/23/19 History Magnesia Concentrate] Menthol-Zinc Oxide Oint 1 applic TOPICAL BID 06/23/19 06/23/19 History [Calmoseptine Oint] Potassium Chloride ER [K-Dur 20] 20 meq PO DAILY@0800 06/23/19 06/23/19 History Allergies Allergy/AdvReac Type Severity Reaction Status Date / Time No Known Allergies Allergy Verified 06/23/19 22:02 Physical Exam Vitals: Vital Signs Temp Pulse Resp BP Pulse Ox 06/25/19 07:00 98.1 F 98 14 127/60 100 06/25/19 03:30 98.1 F 109 H 137/63 99 06/24/19 19:15 97.7 F 73 158/55 99 06/24/19 15:00 98.5 F 70 17 132/64 100 Intake and Output 06/24/19 06/25/19 06/25/19 22:59 06:59 14:59 Intake Total 150 750 100 Output Total 200 450 Balance -50 300 100 Intake: IV 150 Sodium Chloride 0.9% 1, 150 000 ml @ 75 mls/hr IV . [id number] [facility] Rx#:[id number] Intake, IV Titration 750 Amount Sodium Chloride 0.9% 1, 750 000 ml @ 75 mls/hr IV . [id number] [facility] Rx#:[id number] Oral 100 Output: Urine 200 450 Other: Voiding Method Diaper # Voids 3 Results 06/25/19 05:43 06/25/19 05:43 Cardiac Enzymes 06/24/19 06/24/19 06/25/19 Range/Units 16:27 16:33 05:43 AST 18 17 (14-36) U/L Troponin I 0.039 H* (0.000-0.034) ng/mL CBC 06/24/19 06/25/19 Range/Units 16:33 05:43 WBC 16.6 H 13.8 H (3.8-10.6) k/uL RBC 3.39 L 3.18 L (3.80-5.40) m/uL Hgb 10.5 L 10.1 L (11.4-16.0) gm/dL Hct 32.6 L 31.3 L (34.0-46.0) % Plt Count 241 230 (150-450) k/uL Comprehensive Metabolic Panel 06/24/19 06/25/19 Range/Units 16:33 05:43 Sodium 137 139 (137-145) mmol/L Potassium 4.8 4.3 (3.5-5.1) mmol/L Chloride 104 107 (98-107) mmol/L Carbon Dioxide 26 25 (22-30) mmol/L BUN 45 H 39 H (7-17) mg/dL Creatinine 1.41 H 1.24 H (0.52-1.04) mg/dL Glucose 154 H 146 H (74-99) mg/dL Calcium 9.0 8.8 (8.4-10.2) mg/dL AST 18 17 (14-36) U/L ALT 15 14 (4-34) U/L Alkaline Phosphatase 57 53 (38-126) U/L Total Protein 5.8 L 5.5 L (6.3-8.2) g/dL Albumin 3.2 L 2.9 L (3.5-5.0) g/dL Current Medications Generic Name Dose Route Start Last Admin Trade Name Freq PRN Reason Stop Dose Admin Acetaminophen 500 mg 06/24/19 07:57 Tylenol Tab PO Q6H PRN Mild Pain Amlodipine Besylate 2.5 mg 06/24/19 08:00 06/25/19 07:22 Norvasc PO 2.5 mg DAILY@0800 [facility] Administration Aspirin 81 mg 06/25/19 09:00 06/25/19 07:22 Aspirin PO 81 mg DAILY [facility] Administration Bisacodyl 10 mg 06/24/19 07:57 Dulcolax RECTAL DAILY PRN Constipation Calamine/Phenol 1 applic 06/24/19 09:00 06/25/19 07:23 Calmoseptine Oint TOPICAL 1 applic BID [facility] Administration Clopidogrel Bisulfate 75 mg 06/24/19 17:45 06/25/19 07:22 Plavix PO 75 mg DAILY [facility] Administration Famotidine 20 mg 06/24/19 21:00 06/25/19 07:22 Pepcid PO 20 mg BID [facility] Administration Furosemide 20 mg 06/24/19 08:00 06/25/19 07:22 Lasix PO 20 mg DAILY@0800 [facility] Administration Hydralazine HCl 25 mg 06/24/19 07:57 Apresoline PO Q8H PRN bp>160/90 Sodium Chloride 1,000 mls @ 75 mls/hr 06/24/19 00:15 06/25/19 03:00 Saline 0.9% IV 75 mls/hr .[id number] [facility] Administration Ceftriaxone Sodium 1 gm/ 50 mls @ 100 mls/hr 06/24/19 21:00 06/24/19 20:49 Sodium Chloride IVPB 100 mls/hr HS [facility] Administration Insulin Aspart 0 unit 06/24/19 12:30 06/25/19 07:22 Novolog SQ 1 unit ACHS [facility] Administration Protocol Lacosamide 100 mg 06/24/19 08:00 06/25/19 07:22 Vimpat PO 100 mg BID@0800,1700 [facility] Administration Magnesium Hydroxide 2,400 mg 06/24/19 07:57 Milk Of Magnesia PO DAILY PRN Constipation Naloxone HCl 0.2 mg 06/24/19 00:03 Narcan IV Q2M PRN Opioid Reversal Potassium Chloride 20 meq 06/24/19 08:00 06/25/19 07:22 K-Dur 20 PO 20 meq DAILY@0800 [facility] Administration Pravastatin Sodium 40 mg 06/24/19 21:00 06/24/19 20:49 Pravachol PO 40 mg HS@2100 [facility] Administration Sodium Biphosphate/Sodium Phosphate 133 ml 06/24/19 07:57 Fleet Adult RECTAL DAILY PRN Constipation Intake and Output 06/24/19 06/25/19 06/25/19 22:59 06:59 14:59 Intake Total 150 750 100 Output Total 200 450 Balance -50 300 100 Intake: IV 150 Sodium Chloride 0.9% 1, 150 000 ml @ 75 mls/hr IV . [id number] [facility] Rx#:[id number] Intake, IV Titration 750 Amount Sodium Chloride 0.9% 1, 750 000 ml @ 75 mls/hr IV . [id number] [facility] Rx#:[id number] Oral 100 Output: Urine 200 450 Other: Voiding Method Diaper # Voids 3 06/25/19 05:43 06/25/19 05:43
[2019-06-25 11:30] LABS: Glucose,Whole Blood 139 mg/dL (75-99)
--- NOTE | 2019-06-25 11:45 | US ---
EXAMINATION TYPE: US kidneys/renal and bladder DATE OF EXAM: 06/25/2019 COMPARISON: NONE CLINICAL HISTORY: recurrent UTI. recurrent UTI EXAM MEASUREMENTS: Right Kidney: 9.5 x 4.5 x 4.5 cm Left Kidney: 9.0 x 4.3 x 3.9 cm Technical limitations due to overlying bowel content Right Kidney: cystic area lower pole = 3.3 x 3.4 x 3.5cm Left Kidney: no evidence of hydronephrosis Bladder: appears wnl Bilateral Jets seen: yes There is a simple appearing 3.5 cm cyst in the upper pole of the right kidney. The left kidney is nor mal. There is no evidence of hydronephrosis. The bladder is unremarkable. Both ureteral jets were visualized. IMPRESSION: SIMPLE APPEARING RIGHT UPPER POLE RENAL CYST.
--- NOTE | 2019-06-25 13:50 | P.PN ---
Subjective Progress Note Date: 06/25/19 Flory Sims is an 88-year-old female with multiple recent admissions to the hospital, she is currently a resident at [facility], she is having multiple episodes of loss of consciousness and and responsiveness lasting from a few minutes to a few hours, she was admitted to the hospital 3 times, she was evaluated by neurology, no evidence of acute stroke, patient had an MRI of the brain last admission, it was felt by neurology that the patient may be having seizure activity with prolonged post ictal state she was started on Keppra however she continued to have similar episodes on her next admission Keppra was discontinued and patient was started on Vimpat. Patient was stable for a few days at the [facility] however she started having episodes of loss of consciousness again, it was felt by the nurse at the [facility] that patient was weaker on the left side, hence she was transferred to emergency room for evaluation of a possible stroke. Patient was evaluated in the emergency room there was no evidence of weakness on the left side however she had evidence of urinary tract infection and white blood count elevated at 27,000 she was started on IV Rocephin and was admitted to medical floor. Consultation for neurology and infectious disease were initiated. On 06/25/2019 patient was seen and examined on the medical floor she is alert and oriented in no apparent distress she is answering questions appropriately there is no fever or chills no headache or dizziness no chest pain no shortness of breath no cough no nausea or vomiting no abdominal pain no diarrhea no burning was urination no frequency or urgency and no hematuria. Nurse did not report any new episodes of loss of consciousness or unresponsiveness. Objective - Vital Signs Vital signs: Vital Signs Temp 98.1 F 06/25/19 07:00 Pulse 98 06/25/19 07:00 Resp 14 06/25/19 07:23 BP 127/60 06/25/19 07:00 Pulse Ox 100 06/25/19 07:00 Intake & Output 06/24/19 06/25/19 06/25/19 18:59 06:59 18:59 Intake Total 600 900 100 Output Total 200 450 Balance 400 450 100 Intake: IV 600 150 Sodium Chloride 0.9% 1, 600 150 000 ml @ 75 mls/hr IV . [id number] [facility] Rx#:[id number] Intake, IV Titration 750 Amount Sodium Chloride 0.9% 1, 750 000 ml @ 75 mls/hr IV . [id number] [facility] Rx#:[id number] Oral 100 Output: Urine 200 450 Other: Voiding Method Diaper Diaper # Voids 3 - Exam In general patient is alert confused in no apparent distress HEENT head normocephalic and atraumatic Neck is supple no JVD no goiter no lymphadenopathy Chest exam reveals a few scattered crackles no wheezing Cardiac exam reveals regular heart sounds no gallops no murmurs Abdomen is soft nontender no organomegaly with normal bowel sounds Extremity exam reveals no edema no cyanosis or clubbing Neurological examination reveals confusion without any focal neurological deficit specifically there is no weakness on the left side involving the upper or lower extremity as compared to the left at this time - Labs CBC & Chem 7: 06/25/19 05:43 06/25/19 05:43 Labs: Abnormal Lab Results - Last 24 Hours (Table) 06/24/19 06/24/19 06/24/19 Range/Units 16:27 16:33 16:33 WBC 16.6 H (3.8-10.6) k/uL RBC 3.39 L (3.80-5.40) m/uL Hgb 10.5 L (11.4-16.0) gm/dL Hct 32.6 L (34.0-46.0) % RDW 15.7 H (11.5-15.5) % Neutrophils # 15.3 H (1.3-7.7) k/uL Lymphocytes # 0.5 L (1.0-4.8) k/uL BUN 45 H (7-17) mg/dL Creatinine 1.41 H (0.52-1.04) mg/dL Glucose 154 H (74-99) mg/dL POC Glucose (mg/dL) (75-99) mg/dL Troponin I 0.039 H* (0.000-0.034) ng/mL Total Protein 5.8 L (6.3-8.2) g/dL Albumin 3.2 L (3.5-5.0) g/dL 06/24/19 06/24/19 06/25/19 Range/Units 16:37 20:50 05:43 WBC 13.8 H (3.8-10.6) k/uL RBC 3.18 L (3.80-5.40) m/uL Hgb 10.1 L (11.4-16.0) gm/dL Hct 31.3 L (34.0-46.0) % RDW 15.7 H (11.5-15.5) % Neutrophils # 12.2 H (1.3-7.7) k/uL Lymphocytes # 0.5 L (1.0-4.8) k/uL BUN (7-17) mg/dL Creatinine (0.52-1.04) mg/dL Glucose (74-99) mg/dL POC Glucose (mg/dL) 195 H 153 H (75-99) mg/dL Troponin I (0.000-0.034) ng/mL Total Protein (6.3-8.2) g/dL Albumin (3.5-5.0) g/dL 06/25/19 06/25/19 06/25/19 Range/Units 05:43 06:35 11:28 WBC (3.8-10.6) k/uL RBC (3.80-5.40) m/uL Hgb (11.4-16.0) gm/dL Hct (34.0-46.0) % RDW (11.5-15.5) % Neutrophils # (1.3-7.7) k/uL Lymphocytes # (1.0-4.8) k/uL BUN 39 H (7-17) mg/dL Creatinine 1.24 H (0.52-1.04) mg/dL Glucose 146 H (74-99) mg/dL POC Glucose (mg/dL) 162 H 139 H (75-99) mg/dL Troponin I (0.000-0.034) ng/mL Total Protein 5.5 L (6.3-8.2) g/dL Albumin 2.9 L (3.5-5.0) g/dL Microbiology - Last 24 Hours (Table) 06/23/19 23:05 Urine Culture - Final Urine,Catheterized Concha albicans 06/24/19 00:15 Blood Culture - Preliminary Blood No Growth after 24 hours Assessment and Plan Plan: #1 episodes of unresponsiveness, cause is unclear, neurology consultation requested again, on previous admission patient was evaluated for similar episodes, it was felt by neurology that this may represent seizure activity, she was started on Keppra, subsequently this was changed to Vimpat, patient was still having episodes however less frequently #2 urinary tract infection with sepsis elevated white blood count of 27,000 elevated lactic acid, patient was started on IV fluid and IV Rocephin, infectious disease consultation requested Urology consultation requested to assess cause of recurrent urinary tract infections #3 history of hypertension maintained on amlodipine and hydralazine continue #4 history of mca-hheuopk-kzeutubam diabetes mellitus #5 slight elevation in troponin level cardiology consultation was requested #6 evidence of dehydration with acute kidney injury patient is maintained on IV fluid normal saline at 75 mL an hour #7 history of hyperlipidemia maintained on Pravachol At this time patient was started on IV fluid and IV Rocephin Neurology infectious disease and urology consultation requested Son contacted and given update on his mother's condition Will follow in a.m.
--- NOTE | 2019-06-25 15:07 | MR ---
EXAMINATION TYPE: MR brain wo/w con DATE OF EXAM: 06/25/2019 COMPARISON: 06/10/2019 HISTORY: Altered Mental Status CONTRAST: Standard multiplanar, multisequence MRI departmental protocol utilizing 8ml mL intravenous Gadavist g adolinium contrast. There is diffuse cerebral cortical atrophy. There is no mass effect nor midline shift. There is no ev idence of intracranial hemorrhage. There is thinning of the corpus callosum. There is extensive incre ased signal in the periventricular white matter on the T2 and FLAIR images. Sella turcica appears nor mal. There is slight increased signal in the mitch on the FLAIR images. Contrast images show no pathol ogic enhancement. There is normal enhancement of the venous sinuses. There is 8 mm focus of decreased signal at the left posterior frontal lobe convexity that is probably calcified granuloma. Unchanged. IMPRESSION: Cerebral atrophy and extensive chronic white matter changes probably due to chronic small vessel isch emia. No evidence of an acute cortical infarct. No change compared to recent exam.
--- NOTE | 2019-06-25 15:11 | MR ---
EXAMINATION TYPE: MR angio neck wo/w con DATE OF EXAM: 06/25/2019 COMPARISON: HISTORY: Altered Mental Status CONTRAST: Standard multiplanar, multisequence MRI departmental protocol utilizing 8ml mL intravenous Gadavist g adolinium contrast. There is arterial flow in the common internal and external carotid arteries bilaterally. There is art erial flow in both vertebral arteries and left vertebral artery is much larger than the right. I see no evidence of hemodynamic stenosis. No significant plaque formation identified. There is normal bran sajan pattern of the great vessels on the aortic arch. There is bilateral arterial flow in the subcla vian arteries. IMPRESSION: Negative MR angiogram of the neck.
[2019-06-25 16:25] LABS: Glucose,Whole Blood 247 mg/dL (75-99)
--- NOTE | 2019-06-25 17:41 | P.PN ---
Subjective Progress Note Date: 06/25/19 The patient is an 88-year-old female who is seen in neurologic follow-up on June 25, 2019, via teleneurology. Patient reportedly was transferred from nursing care facility where she was found to be less reactive with increasing left-sided weakness. The patient is unable to provide any history for me. Objective - Vital Signs Vital signs: Vital Signs Temp 97.4 F L 06/25/19 14:43 Pulse 98 06/25/19 14:43 Resp 16 06/25/19 14:43 BP 131/72 06/25/19 14:43 Pulse Ox 100 06/25/19 14:43 Intake & Output 06/24/19 06/25/19 06/25/19 18:59 06:59 18:59 Intake Total 387 371 8055 Output Total 973 679 2070 Balance 400 450 50 Intake: IV 600 150 600 Sodium Chloride 0.9% 1, 600 150 600 000 ml @ 75 mls/hr IV . [id number] [facility] Rx#:[id number] Intake, IV Titration 750 50 Amount Sodium Chloride 0.9% 1, 750 000 ml @ 75 mls/hr IV . [id number] [facility] Rx#:[id number] cefTRIAXone 1 gm In 50 Sodium Chloride 0.9% 50 ml @ 100 mls/hr IVPB HS [facility] Rx#:[id number] Oral 500 Output: Urine 174 825 8924 Other: Voiding Method Diaper Diaper # Voids 3 # Bowel Movements 1 - Exam Gen.: Upon entry to the room, the patient is sleeping. She is in no acute distress. HEENT: Head is atraumatic, normocephalic. Fundus not visualized. There is no scleral icterus. Mucous members are moist. Heart: Regular rate and rhythm Neurological examination Mental status: Patient is awake, and oriented to her name, date of and the current president. Patient is unable to tell me the current year, she initially says "1919" she then changes her answer to "1987". Cranial nerves: Pupils are equal, round and reactive to light. Visual soto are full to confrontation. Extraocular movements are intact. There is no nystagmus. Facial sensation is intact. There is no facial asymmetry. Hearing is diminished. Shoulder shrug is symmetric. Motor: Asset Protection Assistant strength is 5/5 bilaterally. There is mild decreased strength in the right lower extremity. The patient is able to raise both legs off of the bed. Coordination: Finger to nose testing is intact - Labs CBC & Chem 7: 06/25/19 05:43 06/25/19 05:43 Labs: Abnormal Lab Results - Last 24 Hours (Table) 06/24/19 06/24/19 06/24/19 Range/Units 16:27 16:33 16:33 WBC 16.6 H (3.8-10.6) k/uL RBC 3.39 L (3.80-5.40) m/uL Hgb 10.5 L (11.4-16.0) gm/dL Hct 32.6 L (34.0-46.0) % RDW 15.7 H (11.5-15.5) % Neutrophils # 15.3 H (1.3-7.7) k/uL Lymphocytes # 0.5 L (1.0-4.8) k/uL BUN 45 H (7-17) mg/dL Creatinine 1.41 H (0.52-1.04) mg/dL Glucose 154 H (74-99) mg/dL POC Glucose (mg/dL) (75-99) mg/dL Troponin I 0.039 H* (0.000-0.034) ng/mL Total Protein 5.8 L (6.3-8.2) g/dL Albumin 3.2 L (3.5-5.0) g/dL 06/24/19 06/24/19 06/25/19 Range/Units 16:37 20:50 05:43 WBC 13.8 H (3.8-10.6) k/uL RBC 3.18 L (3.80-5.40) m/uL Hgb 10.1 L (11.4-16.0) gm/dL Hct 31.3 L (34.0-46.0) % RDW 15.7 H (11.5-15.5) % Neutrophils # 12.2 H (1.3-7.7) k/uL Lymphocytes # 0.5 L (1.0-4.8) k/uL BUN (7-17) mg/dL Creatinine (0.52-1.04) mg/dL Glucose (74-99) mg/dL POC Glucose (mg/dL) 195 H 153 H (75-99) mg/dL Troponin I (0.000-0.034) ng/mL Total Protein (6.3-8.2) g/dL Albumin (3.5-5.0) g/dL 06/25/19 06/25/19 06/25/19 Range/Units 05:43 06:35 11:28 WBC (3.8-10.6) k/uL RBC (3.80-5.40) m/uL Hgb (11.4-16.0) gm/dL Hct (34.0-46.0) % RDW (11.5-15.5) % Neutrophils # (1.3-7.7) k/uL Lymphocytes # (1.0-4.8) k/uL BUN 39 H (7-17) mg/dL Creatinine 1.24 H (0.52-1.04) mg/dL Glucose 146 H (74-99) mg/dL POC Glucose (mg/dL) 162 H 139 H (75-99) mg/dL Troponin I (0.000-0.034) ng/mL Total Protein 5.5 L (6.3-8.2) g/dL Albumin 2.9 L (3.5-5.0) g/dL Microbiology - Last 24 Hours (Table) 06/23/19 23:05 Urine Culture - Final Urine,Catheterized Concha albicans 06/24/19 00:15 Blood Culture - Preliminary Blood No Growth after 24 hours Assessment and Plan Assessment: Impressions: 1. Metabolic encephalopathy-pneumonia, urinary tract infection 2. MRI of the brain is negative for acute infarct 3. MRA is negative for occlusion Plan: Recommendations: 1. Your treatment of infection 2. No further neurological intervention is necessary at this time Time with Patient: Greater than 30 (spent 40 minutes with patient's via teleneurology)
[2019-06-25] MEDS: PRAVASTATIN SODIUM 40 MG TAB PO SCH (20:16)
[2019-06-25 20:17] LABS: Glucose,Whole Blood 201 mg/dL (75-99)
[2019-06-25] MEDS: FLUCONAZOLE 100 MG TAB PO SCH (22:40)
--- NOTE | 2019-06-25 23:35 | PN ---
PROGRESS NOTE DATE OF SERVICE: 06/25/2019 REASON FOR FOLLOWUP: Urinary tract infection. INTERVAL HISTORY: The patient is currently afebrile. The patient is more awake and alert. She is breathing comfortably. No chest pain or cough. No nausea, vomiting, abdominal pain or diarrhea. PHYSICAL EXAMINATION: Blood pressure is 135/54 with a pulse of 73, temperature 98.3. She is 93% on room air. General description: The patient is an elderly female lying in bed in no distress. Respiratory system: Unlabored breathing. Clear to auscultation anteriorly. Heart: S1-S2 regular rate and rhythm. ABDOMEN: Soft, no tenderness. LABS: White count is down to 13,000. Urine now showing Concha albicans. DIAGNOSTIC IMPRESSION AND PLAN: Patient admitted to the hospital with mental status changes likely multifactorial. Urine now showing Concha albicans with white count responded to the Rocephin. We will keep the patient on Rocephin however, add Diflucan and monitor clinical course closely. MMODL / IJN: [id number] /
[2019-06-26 06:44] LABS: Glucose,Whole Blood 171 mg/dL (75-99)
[2019-06-26 07:14] LABS: Basophils % (A) 0 %; Eosinophils # (A) 0.4 k/uL (0-0.7); Eosinophils % (A) 4 %; HCT 32.3 % (34.0-46.0); HGB 10.3 gm/dL (11.4-16.0); Lymphocytes # (A) 0.5 k/uL (1.0-4.8); Lymphocytes % (A) 5 %; MCH 30.7 pg (25.0-35.0); MCV 96.2 fL (80.0-100.0); Mean Platelet Volume 8.5; Monocytes # (A) 0.6 k/uL (0-1.0); Monocytes % (A) 6 %; Neutrophils # (A) 9.7 k/uL (1.3-7.7); Neutrophils % (A) 86 %; Platelet Count 251 k/uL (150-450); RBC 3.36 m/uL (3.80-5.40); RDW 15.3 % (11.5-15.5); WBC 11.3 k/uL (3.8-10.6)
[2019-06-26 07:23] LABS: Albumin 3.1 g/dL (3.5-5.0); Calcium 9.1 mg/dL (8.4-10.2); Total Bilirubin 0.7 mg/dL (0.2-1.3); Total Protein 5.7 g/dL (6.3-8.2)
[2019-06-26] MEDS: SODIUM CHLORIDE 0.9% 1,000 ML IV SCH ×2 (07:44→17:15)
[2019-06-26] MEDS: POTASSIUM CHLORIDE ER 20 MEQ TAB.ER PO SCH (07:51)
[2019-06-26] MEDS: ASPIRIN 81 MG PO SCH (07:51)
[2019-06-26] MEDS: CLOPIDOGREL 75 MG TAB PO SCH (07:51)
[2019-06-26] MEDS: LACOSAMIDE 50 MG TABLET PO SCH ×2 (07:51→17:13)
[2019-06-26] MEDS: FUROSEMIDE 20 MG TAB PO SCH (07:51)
[2019-06-26] MEDS: FAMOTIDINE 20 MG TAB PO SCH (07:51)
[2019-06-26] MEDS: FLUCONAZOLE 100 MG TAB PO SCH (07:51)
[2019-06-26] MEDS: amLODIPine 2.5 MG TAB PO SCH (07:51)
[2019-06-26] MEDS: INSULIN ASPART (NovoLOG) 100 UNIT/ML VIAL SQ SCH ×4 (07:52→20:07)
[2019-06-26] MEDS: MENTHOL-ZINC OXIDE OINT 113 GM TUBE TOPICAL SCH ×2 (07:53→20:07)
[2019-06-26 11:20] LABS: Glucose,Whole Blood 264 mg/dL (75-99)
[2019-06-26] MEDS: METOPROLOL TARTRATE 12.5 MG TAB PO SCH ×2 (12:23→20:07)
--- NOTE | 2019-06-26 13:37 | P.PN ---
Subjective Progress Note Date: 06/26/19 Flory Sims is an 88-year-old female with multiple recent admissions to the hospital, she is currently a resident at [facility], she is having multiple episodes of loss of consciousness and and responsiveness lasting from a few minutes to a few hours, she was admitted to the hospital 3 times, she was evaluated by neurology, no evidence of acute stroke, patient had an MRI of the brain last admission, it was felt by neurology that the patient may be having seizure activity with prolonged post ictal state she was started on Keppra however she continued to have similar episodes on her next admission Keppra was discontinued and patient was started on Vimpat. Patient was stable for a few days at the [facility] [place] however she started having episodes of loss of consciousness again, it was felt by the nurse at the [facility] that patient was weaker on the left side, hence she was transferred to emergency room for evaluation of a possible stroke. Patient was evaluated in the emergency room there was no evidence of weakness on the left side however she had evidence of urinary tract infection and white blood count elevated at 27,000 she was started on IV Rocephin and was admitted to medical floor. Consultation for neurology and infectious disease were initiated. On 06/25/2019 patient was seen and examined on the medical floor she is alert and oriented in no apparent distress she is answering questions appropriately there is no fever or chills no headache or dizziness no chest pain no shortness of breath no cough no nausea or vomiting no abdominal pain no diarrhea no burning was urination no frequency or urgency and no hematuria. Nurse did not report any new episodes of loss of consciousness or unresponsiveness. On 06/26/2019 patient was seen and examined on the medical floor she is alert and oriented in no distress, there is no fever or chills no headache or dizziness no chest pain no shortness of breath no cough no nausea or vomiting no abdominal pain no diarrhea no burning was urination no frequency or urgency and no hematuria. Nurse did not report any new episodes of loss of unresponsiveness. Objective - Vital Signs Vital signs: Vital Signs Temp 98.6 F 06/26/19 07:00 Pulse 107 H 06/26/19 07:00 Resp 17 06/26/19 07:00 BP 131/61 06/26/19 07:00 Pulse Ox 96 06/26/19 07:00 Intake & Output 06/25/19 06/26/19 06/26/19 18:59 06:59 18:59 Intake Total 1410 275 120 Output Total 1100 500 Balance 310 -225 120 Intake: IV 600 Sodium Chloride 0.9% 1, 600 000 ml @ 75 mls/hr IV . [id number] [facility] Rx#:[id number] Intake, IV Titration 50 275 Amount Sodium Chloride 0.9% 1, 225 000 ml @ 75 mls/hr IV . [id number] [facility]ALYA Rx#:[id number] cefTRIAXone 1 gm In 50 50 Sodium Chloride 0.9% 50 ml @ 100 mls/hr IVPB HS NATALYA Rx#:[id number] Oral 760 120 Output: Urine 1100 500 Other: Voiding Method Diaper Diaper Diaper # Bowel Movements 1 - Exam In general patient is alert confused in no apparent distress HEENT head normocephalic and atraumatic Neck is supple no JVD no goiter no lymphadenopathy Chest exam reveals a few scattered crackles no wheezing Cardiac exam reveals regular heart sounds no gallops no murmurs Abdomen is soft nontender no organomegaly with normal bowel sounds Extremity exam reveals no edema no cyanosis or clubbing Neurological examination reveals confusion without any focal neurological deficit specifically there is no weakness on the left side involving the upper or lower extremity as compared to the left at this time - Labs CBC & Chem 7: 06/26/19 06:34 06/26/19 06:34 Labs: Abnormal Lab Results - Last 24 Hours (Table) 06/25/19 06/25/19 06/26/19 Range/Units 16:24 20:12 06:34 WBC 11.3 H (3.8-10.6) k/uL RBC 3.36 L (3.80-5.40) m/uL Hgb 10.3 L (11.4-16.0) gm/dL Hct 32.3 L (34.0-46.0) % Neutrophils # 9.7 H (1.3-7.7) k/uL Lymphocytes # 0.5 L (1.0-4.8) k/uL BUN (7-17) mg/dL Glucose (74-99) mg/dL POC Glucose (mg/dL) 247 H 201 H (75-99) mg/dL Total Protein (6.3-8.2) g/dL Albumin (3.5-5.0) g/dL 06/26/19 06/26/19 06/26/19 Range/Units 06:34 06:43 11:18 WBC (3.8-10.6) k/uL RBC (3.80-5.40) m/uL Hgb (11.4-16.0) gm/dL Hct (34.0-46.0) % Neutrophils # (1.3-7.7) k/uL Lymphocytes # (1.0-4.8) k/uL BUN 25 H (7-17) mg/dL Glucose 155 H (74-99) mg/dL POC Glucose (mg/dL) 171 H 264 H (75-99) mg/dL Total Protein 5.7 L (6.3-8.2) g/dL Albumin 3.1 L (3.5-5.0) g/dL Microbiology - Last 24 Hours (Table) 06/24/19 00:15 Blood Culture - Preliminary Blood No Growth after 48 hours 06/23/19 23:05 Urine Culture - Final Urine,Catheterized Concha albicans Assessment and Plan Plan: #1 episodes of unresponsiveness, cause is unclear, neurology consultation requested again, on previous admission patient was evaluated for similar episodes, it was felt by neurology that this may represent seizure activity, she was started on Keppra, subsequently this was changed to Vimpat, patient was still having episodes however less frequently #2 urinary tract infection with sepsis elevated white blood count of 27,000 elevated lactic acid, patient was started on IV fluid and IV Rocephin, infectious disease consultation requested Urology consultation requested to assess cause of recurrent urinary tract infections #3 history of hypertension maintained on amlodipine and hydralazine continue #4 history of avs-[id number] diabetes mellitus #5 slight elevation in troponin level cardiology consultation was requested #6 evidence of dehydration with acute kidney injury patient is maintained on IV fluid normal saline at 75 mL an hour #7 history of hyperlipidemia maintained on Pravachol At this time patient was started on IV fluid and IV Rocephin Neurology infectious disease and urology consultation requested Son contacted and given update on his mother's condition Will follow in a.m.
--- NOTE | 2019-06-26 14:06 | P.GSCN ---
History of Present Illness Consult date: 06/26/19 Reason for Consult: Recurrent UTIs Requesting physician: Yeny Fenton History of present illness: The patient is an 88-year-old white female who has had multiple episodes of loss of consciousness and unresponsiveness. She has been hospitalized for this, and evaluations have ruled out a stroke. It is felt by neurology that she may have seizure activity. During this admission for loss of consciousness she was found to have leukocytosis and was presumed to have a UTI. She is being treated with IV Rocephin, and her condition is improved. 2 urine cultures during this hospitalization have shown Concha. There is no record of any other urine cultures. She is a vague historian. Upon questioning, she denies dysuria and urinary incontinence. However, her nurse indicates that she is incontinent of both urine and stool. Review of Systems - Constitutional Denies chills, Denies fever - Cardiovascular Denies chest pain - Respiratory Denies dyspnea - Gastrointestinal Denies nausea, Denies vomiting - Genitourinary Genitourinary: Reports urge incontinence, Denies dysuria Past Medical History Past Medical History: Cancer, COPD, Diabetes Mellitus, Hyperlipidemia, Hypertension, Osteoarthritis (OA), Renal Disease, Thyroid Disorder Additional Past Medical History / Comment(s): questionable Seizures recently placed on Keppra (last admission) History of Any Multi-Drug Resistant Organisms: None Reported Past Surgical History: Hysterectomy Additional Past Surgical History / Comment(s): Back surgery, abdominal surgery Past Anesthesia/Blood Transfusion Reactions: Unable to Obtain Past Psychological History: Unable to Obtain Smoking Status: Never smoker Past Alcohol Use History: None Reported Past Drug Use History: None Reported - Past Family History Father History Unknown: Yes Mother History Unknown: Yes Medications and Allergies Home Medications Medication Instructions Recorded Confirmed Type INSULIN LISPRO (HumaLOG) [humaLOG] See Protocol SQ ACHS 06/10/19 06/23/19 History Pravastatin Sodium [Pravachol] 40 mg PO HS@2100 06/10/19 06/23/19 History Aspirin 325 mg PO DAILY@1700 06/16/19 06/23/19 History Furosemide [Lasix] 20 mg PO DAILY@0800 /11/2606/23/19 History Na Phos,M-B/Na Phos,Di-Ba [Fleet 133 ml RECTAL DAILY PRN 06/16/19 06/23/19 History Adult] amLODIPine [Norvasc] 2.5 mg PO DAILY@0800 06/16/19 06/23/19 History hydrALAZINE HCL [Apresoline] 25 mg PO Q8H PRN 06/16/19 06/23/19 History Acetaminophen Tab [Tylenol] 500 mg PO Q6H PRN tab 06/17/19 06/23/19 Rx Bisacodyl 10 mg RECTAL DAILY PRN 06/23/19 06/23/19 History Glucerna Shake 1 can PO TID@0800,1200,1700 06/23/19 06/23/19 History Lacosamide [Vimpat] 100 mg PO BID@0800,1700 06/23/19 06/23/19 History Magnesium Hydroxide [Milk of 7,200 mg PO DAILY PRN 06/23/19 06/23/19 History Magnesia Concentrate] Menthol-Zinc Oxide Oint 1 applic TOPICAL BID 06/23/19 06/23/19 History [Calmoseptine Oint] Potassium Chloride ER [K-Dur 20] 20 meq PO DAILY@0800 06/23/19 06/23/19 History Allergies Allergy/AdvReac Type Severity Reaction Status Date / Time No Known Allergies Allergy Verified 06/23/19 22:02 Surgical - Exam Vital Signs Temp Pulse Resp BP Pulse Ox 98.3 F 75 18 142/45 89 L 06/23/19 21:55 06/23/19 21:55 06/23/19 21:55 06/23/19 21:55 06/23/19 21:55 - General well developed, well nourished, no distress - Respiratory normal respiratory effort - Abdomen Abdomen: soft, non tender, no guarding, no rigid, no rebound - Genitourinary normal external genitalia Results - Labs 06/26/19 06:34 06/26/19 06:34 Abnormal Lab Results - Last 24 Hours (Table) 06/25/19 06/25/19 06/26/19 Range/Units 16:24 20:12 06:34 WBC 11.3 H (3.8-10.6) k/uL RBC 3.36 L (3.80-5.40) m/uL Hgb 10.3 L (11.4-16.0) gm/dL Hct 32.3 L (34.0-46.0) % Neutrophils # 9.7 H (1.3-7.7) k/uL Lymphocytes # 0.5 L (1.0-4.8) k/uL BUN (7-17) mg/dL Glucose (74-99) mg/dL POC Glucose (mg/dL) 247 H 201 H (75-99) mg/dL Total Protein (6.3-8.2) g/dL Albumin (3.5-5.0) g/dL 06/26/19 06/26/19 06/26/19 Range/Units 06:34 06:43 11:18 WBC (3.8-10.6) k/uL RBC (3.80-5.40) m/uL Hgb (11.4-16.0) gm/dL Hct (34.0-46.0) % Neutrophils # (1.3-7.7) k/uL Lymphocytes # (1.0-4.8) k/uL BUN 25 H (7-17) mg/dL Glucose 155 H (74-99) mg/dL POC Glucose (mg/dL) 171 H 264 H (75-99) mg/dL Total Protein 5.7 L (6.3-8.2) g/dL Albumin 3.1 L (3.5-5.0) g/dL Microbiology - Last 24 Hours (Table) 06/24/19 00:15 Blood Culture - Preliminary Blood No Growth after 48 hours 06/23/19 23:05 Urine Culture - Final Urine,Catheterized Concha albicans Diabetes panel 06/26/19 Range/Units 06:34 Sodium 141 (137-145) mmol/L Potassium 4.0 (3.5-5.1) mmol/L Chloride 107 (98-107) mmol/L Carbon Dioxide 29 (22-30) mmol/L BUN 25 H (7-17) mg/dL Creatinine 0.99 (0.52-1.04) mg/dL Glucose 155 H (74-99) mg/dL Calcium 9.1 (8.4-10.2) mg/dL AST 21 (14-36) U/L ALT 17 (4-34) U/L Alkaline Phosphatase 58 (38-126) U/L Total Protein 5.7 L (6.3-8.2) g/dL Albumin 3.1 L (3.5-5.0) g/dL Calcium panel 06/26/19 Range/Units 06:34 Calcium 9.1 (8.4-10.2) mg/dL Albumin 3.1 L (3.5-5.0) g/dL Pituitary panel 06/26/19 Range/Units 06:34 Sodium 141 (137-145) mmol/L Potassium 4.0 (3.5-5.1) mmol/L Chloride 107 (98-107) mmol/L Carbon Dioxide 29 (22-30) mmol/L BUN 25 H (7-17) mg/dL Creatinine 0.99 (0.52-1.04) mg/dL Glucose 155 H (74-99) mg/dL Calcium 9.1 (8.4-10.2) mg/dL Adrenal panel 06/26/19 Range/Units 06:34 Sodium 141 (137-145) mmol/L Potassium 4.0 (3.5-5.1) mmol/L Chloride 107 (98-107) mmol/L Carbon Dioxide 29 (22-30) mmol/L BUN 25 H (7-17) mg/dL Creatinine 0.99 (0.52-1.04) mg/dL Glucose 155 H (74-99) mg/dL Calcium 9.1 (8.4-10.2) mg/dL Total Bilirubin 0.7 (0.2-1.3) mg/dL AST 21 (14-36) U/L ALT 17 (4-34) U/L Alkaline Phosphatase 58 (38-126) U/L Total Protein 5.7 L (6.3-8.2) g/dL Albumin 3.1 L (3.5-5.0) g/dL - Imaging US - kidney/bladder: report reviewed Assessment and Plan (1) UTI (urinary tract infection) Current Visit: Yes Status: Acute Code(s): N39.0 - URINARY TRACT INFECTION, SITE NOT SPECIFIED SNOMED Code(s): 60760457 (2) Renal cyst Current Visit: Yes Status: Acute Code(s): N28.1 - CYST OF KIDNEY, ACQUIRED SNOMED Code(s): 433998421 Plan: As stated, she has responded favorably to Rocephin but urine cultures have shown Concha. The significance of this is unclear, as it may represent colonization or contamination. I explained to the patient that her ultrasound showed a right simple renal cyst which is of no concern. The ultrasound did not reveal any abnormalities which would predispose to recurrent UTIs. Bladder Scan will be utilized to assess bladder emptying. If she continues to require treatment for recurrent UTIs, I would suggest that cultures be obtained each time to identify the infecting organism. Consideration should also be given to straight catheterization for a urine specimen to avoid contamination.
[2019-06-26 16:20] LABS: Glucose,Whole Blood 137 mg/dL (75-99)
[2019-06-26 20:04] LABS: Glucose,Whole Blood 171 mg/dL (75-99)
[2019-06-26] MEDS: PRAVASTATIN SODIUM 40 MG TAB PO SCH (20:07)
--- NOTE | 2019-06-27 02:23 | PN ---
PROGRESS NOTE DATE OF SERVICE: 06/26/2019 REASON FOR FOLLOWUP: Urinary tract infection. INTERVAL HISTORY: The patient is currently afebrile. The patient is awake and alert. She is breathing comfortably. Denies having any chest pain or cough. No nausea, vomiting, abdominal pain, or any diarrhea. PHYSICAL EXAMINATION: On examination, her blood pressure is 162/74 with a pulse of 81 temperature 98.4. She is 97% on room air. General description is an elderly female lying in bed in no distress. RESPIRATORY SYSTEM: Unlabored breathing, clear to auscultation anteriorly. HEART: S1, S2. Regular rate and rhythm. ABDOMEN: Soft, no tenderness. LABS: Hemoglobin is 10.3, white count 11.3, BUN of 25, creatinine 0.99. DIAGNOSTIC IMPRESSION AND PLAN: Patient admitted to the hospital with mental status changes likely multifactorial in this patient who did have a component of urinary tract infection. Urine has been finalized with Concha albicans. She is to finish therapy with oral Diflucan 100 mg daily for about a week. Continue supportive care. MMODL / PAYAMN: [id number] /
[2019-06-27 06:40] LABS: Basophils % (A) 0 %; Eosinophils # (A) 0.1 k/uL (0-0.7); Eosinophils % (A) 1 %; HCT 36.4 % (34.0-46.0); HGB 11.6 gm/dL (11.4-16.0); Lymphocytes # (A) 0.6 k/uL (1.0-4.8); Lymphocytes % (A) 5 %; MCH 30.6 pg (25.0-35.0); MCHC 31.8 g/dL (31.0-37.0); MCV 96.3 fL (80.0-100.0); Mean Platelet Volume 8.6; Monocytes # (A) 0.7 k/uL (0-1.0); Monocytes % (A) 6 %; Neutrophils # (A) 10.2 k/uL (1.3-7.7); Neutrophils % (A) 87 %; Platelet Count 315 k/uL (150-450); RBC 3.78 m/uL (3.80-5.40); RDW 15.1 % (11.5-15.5); WBC 11.7 k/uL (3.8-10.6)
[2019-06-27 07:00] LABS: Albumin 3.5 g/dL (3.5-5.0); Calcium 9.5 mg/dL (8.4-10.2); Potassium 3.9 mmol/L (3.5-5.1); Total Bilirubin 0.8 mg/dL (0.2-1.3); Total Protein 6.4 g/dL (6.3-8.2)
[2019-06-27 07:04] LABS: Glucose,Whole Blood 233 mg/dL (75-99)
[2019-06-27] MEDS: INSULIN ASPART (NovoLOG) 100 UNIT/ML VIAL SQ SCH ×4 (07:46→20:55)
[2019-06-27] MEDS: FUROSEMIDE 20 MG TAB PO SCH (07:47)
[2019-06-27] MEDS: ASPIRIN 81 MG PO SCH (07:47)
[2019-06-27] MEDS: FAMOTIDINE 20 MG TAB PO SCH (07:47)
[2019-06-27] MEDS: FLUCONAZOLE 100 MG TAB PO SCH (07:47)
[2019-06-27] MEDS: METOPROLOL TARTRATE 12.5 MG TAB PO SCH ×2 (07:47→20:54)
[2019-06-27] MEDS: LACOSAMIDE 50 MG TABLET PO SCH ×2 (07:47→16:33)
[2019-06-27] MEDS: POTASSIUM CHLORIDE ER 20 MEQ TAB.ER PO SCH (07:48)
[2019-06-27] MEDS: CLOPIDOGREL 75 MG TAB PO SCH (07:48)
[2019-06-27] MEDS: MENTHOL-ZINC OXIDE OINT 113 GM TUBE TOPICAL SCH ×2 (07:59→20:56)
[2019-06-27] MEDS: SODIUM CHLORIDE 0.9% 1,000 ML IV SCH ×2 (09:35→20:56)
[2019-06-27 11:48] LABS: Glucose,Whole Blood 202 mg/dL (75-99)
--- NOTE | 2019-06-27 14:58 | PN ---
PROGRESS NOTE DATE OF SERVICE: 06/27/2019 REASON FOR FOLLOW UP: Urinary tract infection. INTERVAL HISTORY: The patient is currently afebrile, patient is breathing comfortably. Patient denies having any chest pain or any cough. No vomiting or any diarrhea. PHYSICAL EXAMINATION: On examination, her blood pressure is 149/77 with a pulse of 105, temperature 97.7. She is 94% on room air. General description is an elderly female, up in the chair in no distress. RESPIRATORY SYSTEM: Unlabored breathing, clear to auscultation anteriorly. HEART: S1, S2. Regular rate and rhythm. ABDOMEN: Soft, no tenderness. LABS: Hemoglobin 11.2, white count 11.7 creatinine 0.99. DIAGNOSTIC IMPRESSION AND PLAN: Patient with urinary tract infection. Urine has been finalized with Concha albicans. Patient is on oral Diflucan to continue for about a week to finish a course of therapy and monitor clinical course closely. The Rocephin will be discontinued on discharge. MMODL / IJN: [id number] /
--- NOTE | 2019-06-27 15:50 | P.PN ---
Subjective Progress Note Date: 06/27/19 Flory Sims is an 88-year-old female with multiple recent admissions to the hospital, she is currently a resident at [facility], she is having multiple episodes of loss of consciousness and and responsiveness lasting from a few minutes to a few hours, she was admitted to the hospital 3 times, she was evaluated by neurology, no evidence of acute stroke, patient had an MRI of the brain last admission, it was felt by neurology that the patient may be having seizure activity with prolonged post ictal state she was started on Keppra however she continued to have similar episodes on her next admission Keppra was discontinued and patient was started on Vimpat. [facility] however she started having episodes of loss of consciousness again, it was felt by the nurse at the [facility] that patient was weaker on the left side, hence she was transferred to emergency room for evaluation of a possible stroke. Patient was evaluated in the emergency room there was no evidence of weakness on the left side however she had evidence of urinary tract infection and white blood count elevated at 27,000 she was started on IV Rocephin and was admitted to medical floor. Consultation for neurology and infectious disease were initiated. On 06/25/2019 patient was seen and examined on the medical floor she is alert and oriented in no apparent distress she is answering questions appropriately there is no fever or chills no headache or dizziness no chest pain no shortness of breath no cough no nausea or vomiting no abdominal pain no diarrhea no burning was urination no frequency or urgency and no hematuria. Nurse did not report any new episodes of loss of consciousness or unresponsiveness. On 06/26/2019 patient was seen and examined on the medical floor she is alert and oriented in no distress, there is no fever or chills no headache or dizziness no chest pain no shortness of breath no cough no nausea or vomiting no abdominal pain no diarrhea no burning was urination no frequency or urgency and no hematuria. Nurse did not report any new episodes of loss of unresponsiveness. On 06/27/2019 patient was seen and examined on the medical floor she is sitting up in a chair she is more alert today there is no fever or chills no headache or dizziness no chest pain no shortness of breath no cough no nausea or vomiting no abdominal pain no diarrhea and no urinary symptoms. No new episodes of loss of consciousness reported. Objective - Vital Signs Vital signs: Vital Signs Temp 97.7 F 06/27/19 07:00 Pulse 105 H 06/27/19 07:00 Resp 16 06/27/19 07:00 BP 149/77 06/27/19 07:00 Pulse Ox 94 L 06/27/19 07:00 Intake & Output 06/26/19 06/27/19 06/27/19 18:59 06:59 18:59 Intake Total 120 Output Total 519 550 Balance -399 -550 Intake: Oral 120 Output: Urine 150 550 Post Void Residual 369 Other: Voiding Method Diaper Diaper Diaper # Voids 1 - Exam In general patient is alert confused in no apparent distress HEENT head normocephalic and atraumatic Neck is supple no JVD no goiter no lymphadenopathy Chest exam reveals a few scattered crackles no wheezing Cardiac exam reveals regular heart sounds no gallops no murmurs Abdomen is soft nontender no organomegaly with normal bowel sounds Extremity exam reveals no edema no cyanosis or clubbing Neurological examination reveals confusion without any focal neurological deficit specifically there is no weakness on the left side involving the upper or lower extremity as compared to the left at this time - Labs CBC & Chem 7: 06/27/19 06:16 06/27/19 06:16 Labs: Abnormal Lab Results - Last 24 Hours (Table) 06/26/19 06/26/19 06/27/19 Range/Units 16:18 20:03 06:16 WBC 11.7 H (3.8-10.6) k/uL RBC 3.78 L (3.80-5.40) m/uL Neutrophils # 10.2 H (1.3-7.7) k/uL Lymphocytes # 0.6 L (1.0-4.8) k/uL BUN (7-17) mg/dL Glucose (74-99) mg/dL POC Glucose (mg/dL) 137 H 171 H (75-99) mg/dL 06/27/19 06/27/19 06/27/19 Range/Units 06:16 07:03 11:46 WBC (3.8-10.6) k/uL RBC (3.80-5.40) m/uL Neutrophils # (1.3-7.7) k/uL Lymphocytes # (1.0-4.8) k/uL BUN 22 H (7-17) mg/dL Glucose 208 H (74-99) mg/dL POC Glucose (mg/dL) 233 H 202 H (75-99) mg/dL Microbiology - Last 24 Hours (Table) 06/24/19 00:15 Blood Culture - Preliminary Blood No Growth after 72 hours Assessment and Plan Plan: #1 episodes of unresponsiveness, cause is unclear, neurology consultation requested again, on previous admission patient was evaluated for similar episodes, it was felt by neurology that this may represent seizure activity, she was started on Keppra, subsequently this was changed to Vimpat, patient was still having episodes however less frequently #2 urinary tract infection with sepsis elevated white blood count of 27,000 elevated lactic acid, patient was started on IV fluid and IV Rocephin, infectious disease consultation requested Urology consultation requested to assess cause of recurrent urinary tract infections #3 history of hypertension maintained on amlodipine and hydralazine continue #4 history of [id number] diabetes mellitus #5 slight elevation in troponin level cardiology consultation was requested #6 evidence of dehydration with acute kidney injury patient is maintained on IV fluid normal saline at 75 mL an hour #7 history of hyperlipidemia maintained on Pravachol At this time patient was started on IV fluid and IV Rocephin Neurology infectious disease and urology consultation reviewed Son contacted and given update on his mother's condition Patient is improving gradually Will follow in a.m. possible transfer back to the retirement in 1-2 days
[2019-06-27] MEDS: amLODIPine 2.5 MG TAB PO SCH (16:34)
[2019-06-27 17:12] LABS: Glucose,Whole Blood 349 mg/dL (75-99)
[2019-06-27 20:43] LABS: Glucose,Whole Blood 216 mg/dL (75-99)
[2019-06-27] MEDS: PRAVASTATIN SODIUM 40 MG TAB PO SCH (20:54)
[2019-06-28 07:14] LABS: Glucose,Whole Blood 141 mg/dL (75-99)
[2019-06-28] MEDS: INSULIN ASPART (NovoLOG) 100 UNIT/ML VIAL SQ SCH ×4 (08:34→20:44)
[2019-06-28] MEDS: METOPROLOL TARTRATE 12.5 MG TAB PO SCH ×2 (08:35→20:30)
[2019-06-28] MEDS: LACOSAMIDE 50 MG TABLET PO SCH ×2 (08:35→17:19)
[2019-06-28] MEDS: FAMOTIDINE 20 MG TAB PO SCH (08:35)
[2019-06-28] MEDS: ASPIRIN 81 MG PO SCH (08:36)
[2019-06-28] MEDS: amLODIPine 2.5 MG TAB PO SCH (08:36)
[2019-06-28] MEDS: POTASSIUM CHLORIDE ER 20 MEQ TAB.ER PO SCH (08:36)
[2019-06-28] MEDS: FUROSEMIDE 20 MG TAB PO SCH (08:36)
[2019-06-28] MEDS: MENTHOL-ZINC OXIDE OINT 113 GM TUBE TOPICAL SCH ×2 (08:37→20:30)
[2019-06-28] MEDS: FLUCONAZOLE 100 MG TAB PO SCH (08:37)
[2019-06-28] MEDS: CLOPIDOGREL 75 MG TAB PO SCH (08:37)
--- NOTE | 2019-06-28 08:41 | P.PN ---
Subjective Progress Note Date: 06/28/19 Flory Sims is an 88-year-old female with multiple recent admissions to the hospital, she is currently a resident at [facility], she is having multiple episodes of loss of consciousness and and responsiveness lasting from a few minutes to a few hours, she was admitted to the hospital 3 times, she was evaluated by neurology, no evidence of acute stroke, patient had an MRI of the brain last admission, it was felt by neurology that the patient may be having seizure activity with prolonged post ictal state she was started on Keppra however she continued to have similar episodes on her next admission Keppra was discontinued and patient was started on Vimpat. [facility] she started having episodes of loss of consciousness again, it was felt by the nurse [facility] the [facility] that patient was weaker on the left side, hence she was transferred to emergency room for evaluation of a possible stroke. Patient was evaluated in the emergency room there was no evidence of weakness on the left side however she had evidence of urinary tract infection and white blood count elevated at 27,000 she was started on IV Rocephin and was admitted to medical floor. Consultation for neurology and infectious disease were initiated. On 06/25/2019 patient was seen and examined on the medical floor she is alert and oriented in no apparent distress she is answering questions appropriately there is no fever or chills no headache or dizziness no chest pain no shortness of breath no cough no nausea or vomiting no abdominal pain no diarrhea no burning was urination no frequency or urgency and no hematuria. Nurse did not report any new episodes of loss of consciousness or unresponsiveness. On 06/26/2019 patient was seen and examined on the medical floor she is alert and oriented in no distress, there is no fever or chills no headache or dizziness no chest pain no shortness of breath no cough no nausea or vomiting no abdominal pain no diarrhea no burning was urination no frequency or urgency and no hematuria. Nurse did not report any new episodes of loss of unresponsiveness. On 06/27/2019 patient was seen and examined on the medical floor she is sitting up in a chair she is more alert today there is no fever or chills no headache or dizziness no chest pain no shortness of breath no cough no nausea or vomiting no abdominal pain no diarrhea and no urinary symptoms. No new episodes of loss of consciousness reported. On 06/28/2019 patient was seen and examined on the medical floor she is alert, responsive, in no apparent distress there is no fever or chills no headache or dizziness no chest pain no shortness of breath no cough no nausea or vomiting no abdominal pain no diarrhea and no urinary symptoms. Nurse Lourdes contacted no new episodes of loss of consciousness or and responsiveness reported. Objective - Vital Signs Vital signs: Vital Signs Temp 98.3 F 06/28/19 07:00 Pulse 95 06/28/19 07:00 Resp 16 06/28/19 07:00 BP 174/75 06/28/19 07:00 Pulse Ox 93 L 06/28/19 07:00 Intake & Output 06/27/19 06/28/19 06/28/19 18:59 06:59 18:59 Output Total 400 700 Balance -400 -700 Output: Urine 400 700 Other: Voiding Method Diaper Diaper # Voids 1 - Exam In general patient is alert confused in no apparent distress HEENT head normocephalic and atraumatic Neck is supple no JVD no goiter no lymphadenopathy Chest exam reveals a few scattered crackles no wheezing Cardiac exam reveals regular heart sounds no gallops no murmurs Abdomen is soft nontender no organomegaly with normal bowel sounds Extremity exam reveals no edema no cyanosis or clubbing Neurological examination reveals confusion without any focal neurological deficit specifically there is no weakness on the left side involving the upper or lower extremity as compared to the left at this time - Labs CBC & Chem 7: 06/27/19 06:16 06/27/19 06:16 Labs: Abnormal Lab Results - Last 24 Hours (Table) 06/27/19 06/27/19 06/27/19 Range/Units 11:46 17:11 20:42 POC Glucose (mg/dL) 202 H 349 H 216 H (75-99) mg/dL 06/28/19 Range/Units 07:13 POC Glucose (mg/dL) 141 H (75-99) mg/dL Microbiology - Last 24 Hours (Table) 06/24/19 00:15 Blood Culture - Preliminary Blood No Growth after 96 hours Assessment and Plan Plan: #1 episodes of unresponsiveness, cause is unclear, neurology consultation requested again, on previous admission patient was evaluated for similar episodes, it was felt by neurology that this may represent seizure activity, she was started on Keppra, subsequently this was changed to Vimpat, patient was still having episodes however less frequently #2 urinary tract infection with sepsis elevated white blood count of 27,000 elevated lactic acid, patient was started on IV fluid and IV Rocephin, infectious disease consultation requested Urology consultation requested to assess cause of recurrent urinary tract infections #3 history of hypertension maintained on amlodipine and hydralazine continue #4 history of mad-qahfkqn-agkssqeju diabetes mellitus #5 slight elevation in troponin level cardiology consultation was requested #6 evidence of dehydration with acute kidney injury patient is maintained on IV fluid normal saline at 75 mL an hour #7 history of hyperlipidemia maintained on Pravachol At this time patient was started on IV fluid and IV Rocephin Neurology infectious disease and urology consultation reviewed Son contacted and given update on his mother's condition Patient is improving gradually Will follow in a.m. possible [facility] if stable
[2019-06-28 11:38] LABS: Glucose,Whole Blood 230 mg/dL (75-99)
--- NOTE | 2019-06-28 16:56 | PN ---
PROGRESS NOTE DATE OF SERVICE: 06/28/2019 REASON FOR FOLLOWUP: Urinary tract infection. INTERVAL HISTORY: The patient is currently afebrile. The patient is breathing comfortably. She denies any symptoms at this point. No nausea, vomiting or any diarrhea reported. PHYSICAL EXAMINATION: Blood pressure 174/75 with a pulse of 95, temperature 98.3. She is 93% on room air. General description is an elderly female lying in bed in no distress. RESPIRATORY SYSTEM: Unlabored breathing. Clear to auscultation anteriorly. HEART: S1, S2. Regular rate and rhythm. ABDOMEN: Soft. No tenderness. LABS: No new labs have been obtained today. DIAGNOSTIC IMPRESSION AND PLAN: Patient admitted to hospital with mental status changes, elevated white count and concern for a urinary tract infection. Urine has been Concha. The patient's white count has almost normalized. She did finish therapy with oral Diflucan. Continue to monitor her clinical course closely. MMODL / IJN: [id number] /
[2019-06-28 17:04] LABS: Glucose,Whole Blood 137 mg/dL (75-99)
[2019-06-28] MEDS: SODIUM CHLORIDE 0.9% 1,000 ML IV SCH (17:12)
[2019-06-28] MEDS: PRAVASTATIN SODIUM 40 MG TAB PO SCH (20:31)
[2019-06-28 20:43] LABS: Glucose,Whole Blood 196 mg/dL (75-99)
--- NOTE | 2019-06-28 21:06 | P.PN ---
Subjective Progress Note Date: 06/28/19 Principal diagnosis: possible seizure disorder. subjective: Nursing report today indicates no clinical seizures reported. However nurse reports concerned that after the patient is given glucose and might she becomes extremely sedated and altered. She is currently on a dose of 100 mg twice daily. During the day when she is been off the dose of the glucose my for several hours she appears to have a better affect and interaction. The nurses requesting for me to further evaluate this medication if he could be actually making the patient worse. Objective - Vital Signs Vital signs: Vital Signs Temp 97.7 F 06/28/19 19:54 Pulse 67 06/28/19 19:54 Resp 16 06/28/19 19:54 BP 146/57 06/28/19 19:54 Pulse Ox 95 06/28/19 19:54 Intake & Output 06/28/19 06/28/19 06/29/19 06:59 18:59 06:59 Output Total 700 250 Balance -700 -250 Output: Urine 700 250 Other: Voiding Method Diaper Diaper Incontinent # Voids 1 - Exam patient examined and chart reviewed. On examination the patient is awake no purposeful tracking. She is nonverbal. She was just given the Vimpat approximate 45 minutes prior to my visit. Pupils are 2 mm equally reactive to light and accommodation. Cranial nerve examination unable to assess extraocular movements due to patient not tracking. Nonverbal. Gag reflex is intact. Palate appears to elevate symmetrically. Tongue appears midline without fasciculations deviation. Motor examination patient has decreased movement. Generalized hypotonia is noted throughout. Patient is unable to respond to formal strength testing due to her inability to follow commands. No fasciculations or tremor noted. Deep tendon reflexes absent throughout. Plantar responses are withdrawal bilaterally. Coordination testing: Patient is altered and unable to follow formal examination. Next Sensory examination deferred due to patient's current mental status. - Labs CBC & Chem 7: 06/27/19 06:16 06/27/19 06:16 Labs: Abnormal Lab Results - Last 24 Hours (Table) 06/28/19 06/28/19 06/28/19 Range/Units 07:13 11:37 17:03 POC Glucose (mg/dL) 141 H 230 H 137 H (75-99) mg/dL 06/28/19 Range/Units 20:41 POC Glucose (mg/dL) 196 H (75-99) mg/dL Microbiology - Last 24 Hours (Table) 06/24/19 00:15 Blood Culture - Preliminary Blood No Growth after 96 hours Assessment and Plan Assessment: this is an 88-year-old female who reportedly had new onset seizures and was initially hospitalized at [facility] in [place] and transfer to longterm facility. Apparently the patient developed a seizure disorder and was placed on Vimpat and then transferred here due to decline in her mental status. I agree with the nurse assessment that the glucose to my could be detrimental in causing worsening of her altered mental status. Her examination was very difficult tonight due to her being nonverbal and unable to follow commands. I was however able to assess that she does have a strong gag reflex but due to her sedation she is at increased risk for aspiration. Recommendations 1. Decrease glucose to my to 50 mg twice a day. 2. Follow-up I'll close mild level. 3. Labs this evening: Ammonia level. TSH. Free T4. B12 and folate. 4. Follow-up EEG. 5. Consider a follow-up computed tomography scan of the head due to patient's pacemaker being noncompatible with MRI 6. formal swallow evaluation in a.m. by speech therapy. 7. Continue with neuro checks every 4 hours her nursing protocol. 8. Aspiration precautions to be in place. 9. If patient has any clinical seizures please contact software controls engineer neurology immediately. This patient's prognosis remains very guarded. We'll continue to follow the patient daily and communicate with family and staff with management and plan. Follow-up EEG is unremarkable would like to consider further tapering off the glucose might over the next 4 weeks. Patient will need to follow up with a neurologist as an outpatient to further assess. This patient has an urinary tract infection being treated. Altered mental status is not uncommon in the elderly in the setting of urosepsis. This patient may not necessarily require long-term anticonvulsant medication.
[2019-06-29 02:15] LABS: Folate, Serum 6.8 ng/mL
[2019-06-29] MEDS: SODIUM CHLORIDE 0.9% 1,000 ML IV SCH ×2 (04:36→16:25)
[2019-06-29 07:04] LABS: Glucose,Whole Blood 157 mg/dL (75-99)
[2019-06-29] MEDS: POTASSIUM CHLORIDE ER 20 MEQ TAB.ER PO SCH (07:22)
[2019-06-29] MEDS: CLOPIDOGREL 75 MG TAB PO SCH (07:22)
[2019-06-29] MEDS: ASPIRIN 81 MG PO SCH (07:22)
[2019-06-29] MEDS: FUROSEMIDE 20 MG TAB PO SCH (07:22)
[2019-06-29] MEDS: amLODIPine 2.5 MG TAB PO SCH (07:23)
[2019-06-29] MEDS: FLUCONAZOLE 100 MG TAB PO SCH (07:23)
[2019-06-29] MEDS: LACOSAMIDE 50 MG TABLET PO SCH ×2 (07:23→21:05)
[2019-06-29] MEDS: INSULIN ASPART (NovoLOG) 100 UNIT/ML VIAL SQ SCH ×4 (07:23→21:05)
[2019-06-29] MEDS: FAMOTIDINE 20 MG TAB PO SCH (07:23)
[2019-06-29] MEDS: METOPROLOL TARTRATE 12.5 MG TAB PO SCH ×2 (07:23→21:04)
[2019-06-29 07:24] LABS: Basophils % (A) 0 %; Eosinophils # (A) 0.3 k/uL (0-0.7); Eosinophils % (A) 2 %; HCT 34.9 % (34.0-46.0); HGB 11.3 gm/dL (11.4-16.0); Lymphocytes # (A) 0.9 k/uL (1.0-4.8); Lymphocytes % (A) 8 %; MCH 30.9 pg (25.0-35.0); MCHC 32.2 g/dL (31.0-37.0); Mean Platelet Volume 8.3; Monocytes # (A) 0.7 k/uL (0-1.0); Monocytes % (A) 6 %; Neutrophils % (A) 82 %; Platelet Count 380 k/uL (150-450); RBC 3.64 m/uL (3.80-5.40); RDW 15.3 % (11.5-15.5)
[2019-06-29] MEDS: MENTHOL-ZINC OXIDE OINT 113 GM TUBE TOPICAL SCH ×2 (07:25→21:20)
[2019-06-29 07:41] LABS: Albumin 3.2 g/dL (3.5-5.0); Calcium 9.3 mg/dL (8.4-10.2); Potassium 4.3 mmol/L (3.5-5.1); Total Bilirubin 0.6 mg/dL (0.2-1.3); Total Protein 6.1 g/dL (6.3-8.2)
[2019-06-29 11:24] LABS: Glucose,Whole Blood 201 mg/dL (75-99)
--- NOTE | 2019-06-29 16:14 | P.PN ---
Subjective Progress Note Date: 06/29/19 Flory Sims is an 88-year-old female with multiple recent admissions to the hospital, she is currently a resident at [facility], [place], she is having multiple episodes of loss of consciousness and and responsiveness lasting from a few minutes to a few hours, she was admitted to the hospital 3 times, she was evaluated by neurology, no evidence of acute stroke, patient had an MRI of the brain last admission, it was felt by neurology that the patient may be having seizure activity with prolonged post ictal state she was started on Keppra however she continued to have similar episodes on her next admission Keppra was discontinued and patient was started on Vimpat. [facility] however she started having episodes of loss of consciousness again, it was felt by the nurse at the [facility] that patient was weaker on the left side, hence she was transferred to emergency room for evaluation of a possible stroke. Patient was evaluated in the emergency room there was no evidence of weakness on the left side however she had evidence of urinary tract infection and white blood count elevated at 27,000 she was started on IV Rocephin and was admitted to medical floor. Consultation for neurology and infectious disease were initiated. On 06/25/2019 patient was seen and examined on the medical floor she is alert and oriented in no apparent distress she is answering questions appropriately there is no fever or chills no headache or dizziness no chest pain no shortness of breath no cough no nausea or vomiting no abdominal pain no diarrhea no burning was urination no frequency or urgency and no hematuria. Nurse did not report any new episodes of loss of consciousness or unresponsiveness. On 06/26/2019 patient was seen and examined on the medical floor she is alert and oriented in no distress, there is no fever or chills no headache or dizziness no chest pain no shortness of breath no cough no nausea or vomiting no abdominal pain no diarrhea no burning was urination no frequency or urgency and no hematuria. Nurse did not report any new episodes of loss of unresponsiveness. On 06/27/2019 patient was seen and examined on the medical floor she is sitting up in a chair she is more alert today there is no fever or chills no headache or dizziness no chest pain no shortness of breath no cough no nausea or vomiting no abdominal pain no diarrhea and no urinary symptoms. No new episodes of loss of consciousness reported. On 06/28/2019 patient was seen and examined on the medical floor she is alert, responsive, in no apparent distress there is no fever or chills no headache or dizziness no chest pain no shortness of breath no cough no nausea or vomiting no abdominal pain no diarrhea and no urinary symptoms. Nurse Lourdes contacted no new episodes of loss of consciousness or and responsiveness reported. On 06/29/2019 Patient was seen and examined on the medical floor, she is more alert and responsive today, there is no fever or chills no headache no dizziness, no chest pain no SOB, no cough, no nausea or vomiting, no abdominal pain and no urinary symptoms. no new episodes of loss of consciousness. Objective - Vital Signs Vital signs: Vital Signs Temp 97.5 F L 06/29/19 15:00 Pulse 106 H 06/29/19 15:00 Resp 16 06/29/19 15:00 BP 128/77 06/29/19 15:00 Pulse Ox 96 06/29/19 15:00 Intake & Output 06/28/19 06/29/19 06/29/19 18:59 06:59 18:59 Intake Total 100 200 Output Total 250 800 Balance -250 -700 200 Intake: Oral 100 200 Output: Urine 250 800 Other: Voiding Method Diaper Incontinent # Voids 3 - Exam In general patient is alert confused in no apparent distress HEENT head normocephalic and atraumatic Neck is supple no JVD no goiter no lymphadenopathy Chest exam reveals a few scattered crackles no wheezing Cardiac exam reveals regular heart sounds no gallops no murmurs Abdomen is soft nontender no organomegaly with normal bowel sounds Extremity exam reveals no edema no cyanosis or clubbing Neurological examination reveals confusion without any focal neurological deficit specifically there is no weakness on the left side involving the upper or lower extremity as compared to the left at this time - Labs CBC & Chem 7: 06/29/19 06:19 06/29/19 06:19 Labs: Abnormal Lab Results - Last 24 Hours (Table) 06/28/19 06/28/19 06/28/19 Range/Units 17:03 19:48 20:41 WBC (3.8-10.6) k/uL RBC (3.80-5.40) m/uL Hgb (11.4-16.0) gm/dL Neutrophils # (1.3-7.7) k/uL Lymphocytes # (1.0-4.8) k/uL BUN (7-17) mg/dL Creatinine (0.52-1.04) mg/dL Glucose (74-99) mg/dL POC Glucose (mg/dL) 137 H 196 H (75-99) mg/dL Total Protein (6.3-8.2) g/dL Albumin (3.5-5.0) g/dL Vitamin B12 2913.0 H (200.0-944.0) pg/mL 06/29/19 06/29/19 06/29/19 Range/Units 06:19 06:19 07:03 WBC 11.0 H (3.8-10.6) k/uL RBC 3.64 L (3.80-5.40) m/uL Hgb 11.3 L (11.4-16.0) gm/dL Neutrophils # 9.0 H (1.3-7.7) k/uL Lymphocytes # 0.9 L (1.0-4.8) k/uL BUN 29 H (7-17) mg/dL Creatinine 1.23 H (0.52-1.04) mg/dL Glucose 147 H (74-99) mg/dL POC Glucose (mg/dL) 157 H (75-99) mg/dL Total Protein 6.1 L (6.3-8.2) g/dL Albumin 3.2 L (3.5-5.0) g/dL Vitamin B12 (200.0-944.0) pg/mL 06/29/19 Range/Units 11:23 WBC (3.8-10.6) k/uL RBC (3.80-5.40) m/uL Hgb (11.4-16.0) gm/dL Neutrophils # (1.3-7.7) k/uL Lymphocytes # (1.0-4.8) k/uL BUN (7-17) mg/dL Creatinine (0.52-1.04) mg/dL Glucose (74-99) mg/dL POC Glucose (mg/dL) 201 H (75-99) mg/dL Total Protein (6.3-8.2) g/dL Albumin (3.5-5.0) g/dL Vitamin B12 (200.0-944.0) pg/mL Microbiology - Last 24 Hours (Table) 06/24/19 00:15 Blood Culture - Preliminary Blood No Growth after 120 hours Assessment and Plan Plan: #1 episodes of unresponsiveness, cause is unclear, neurology consultation requested again, on previous admission patient was evaluated for similar episodes, it was felt by neurology that this may represent seizure activity, she was started on Keppra, subsequently this was changed to Vimpat, patient was still having episodes however less frequently #2 urinary tract infection with sepsis elevated white blood count of 27,000 elevated lactic acid, patient was started on IV fluid and IV Rocephin, infectious disease consultation requested Urology consultation requested to assess cause of recurrent urinary tract inf ections #3 history of hypertension maintained on amlodipine and hydralazine continue #4 history of sof-dwygspv-xidlkwobd diabetes mellitus #5 slight elevation in troponin level cardiology consultation was requested #6 evidence of dehydration with acute kidney injury patient is maintained on IV fluid normal saline at 75 mL an hour #7 history of hyperlipidemia maintained on Pravachol At this time patient was started on IV fluid and IV Rocephin Neurology infectious disease and urology consultation reviewed Son contacted and given update on his mother's condition Patient is improving gradually Will follow in a.m. possible transfer [facility] tomorrow if stable
[2019-06-29 16:39] LABS: Glucose,Whole Blood 164 mg/dL (75-99)
--- NOTE | 2019-06-29 16:45 | EEG ---
ELECTROENCEPHALOGRAM REPORT HISTORY: This is an inpatient EEG performed on an 88-year-old female who was admitted for altered mental status. This EEG is being reviewed to rule out possible underlying seizure activity. A prior EEG was performed on June 10, 2019. CURRENT MEDICATIONS: Vimpat reduced to 50 mg twice daily ( previously 100mg BID) PERTINENT HISTORY: Nursing staff reported patient becoming extremely altered after receiving her initial doses of 100 mg b.i.d. Reported that after patient receives her dose, for the next several hours she is extremely difficult to arouse and altered. As a result of this observation, the patient was discontinued that dosage and started today at 50 mg twice daily. TECHNICAL REPORT: This is an inpatient EEG performed on the [employer] EEG monitor with electrodes placed according to the international 10-20 system and a single EKG channel. Simultaneous video EEG monitoring was performed. This EEG was reviewed in both the longitudinal bipolar, common average referential and transverse montages. Photic stimulation was performed. Hyperventilation was not performed. The study begins with the patient in quiet wakefulness. She appears to wax and wane between wakefulness and drowsiness, with the background rhythm being of moderate amplitude, symmetric, between 7 and 8 Hz potentials. The posterior-dominant rhythm attenuates with eye opening. Intermittent muscle and movement artifacts contaminate the tracing. Photic stimulation was performed at various flash frequencies and failed to elicit a consistent driving response. Following photic stimulation, the patient further transitions into stage I drowsiness. This is associated with an increase in beta activity anteriorly and centrally along with slow rolling eye movements. The background further attenuates to mixed theta potentials between 6 and 7 Hz. The patient briefly enters stage II sjo-gwzrd-ecr-movement sleep which is associated with a low-amplitude mixed theta frequency background. Rare sleep spindles are noted. No vertex waves observed. Sleep was brief, followed by an arousal at 12:48:49 which was associated with excessive motion and movement artifact that contaminated the tracing. The background, however, remained at 8 Hz, consistent with wake. For the remainder of the study, there was excessive muscle artifact noted in the bifrontal electrode placement. IMPRESSION: This is a normal brief wake sleep EEG study. No epileptiform abnormalities, focal or hemispheric slowing was observed. No abnormalities were noted during photic stimulation. No abnormalities were noted in the EKG. This wake brief sleep EEG study, however, does not rule out an underlying seizure tendency. Thus further clinical correlation is needed. If clinically indicated, serial EEGs are recommended and/or a more prolonged overnight study. MMODL / IJN: [id number] / MTDD
--- NOTE | 2019-06-29 18:01 | PN ---
PROGRESS NOTE DATE OF SERVICE: 06/29/2019 REASON FOR FOLLOWUP: UTI. INTERVAL HISTORY: The patient is currently afebrile. The patient is slightly sleepy and lethargic today. She has been breathing comfortably. No nausea, no vomiting or any diarrhea has been reported. The patient was to provide a reliable history today. PHYSICAL EXAMINATION: Blood pressure 128/77 with a pulse of 106, temperature 97.5. She is 96% on room air. General description is an elderly female lying in bed in no distress. RESPIRATORY SYSTEM: Unlabored breathing. Clear to auscultation anteriorly. HEART: S1, S2. Regular rate and rhythm. ABDOMEN: Soft. No tenderness. LABS: Hemoglobin 11.3, white count of 11,000. BUN of 29, creatinine 1.23. DIAGNOSTIC IMPRESSION AND PLAN: Patient admitted to hospital with mental status changes and leukocytosis with concern for a urinary tract infection. The patient seems to have shown some clinical improvement. Urine has been predominantly Concha. Currently covered with Diflucan and Rocephin; to continue and monitor her clinical course closely. MMODL / IJN: [id number] /
[2019-06-29 20:22] LABS: Glucose,Whole Blood 217 mg/dL (75-99)
[2019-06-29] MEDS: PRAVASTATIN SODIUM 40 MG TAB PO SCH (21:05)
--- NOTE | 2019-06-29 23:49 | PN ---
PROGRESS NOTE NEUROLOGY PROGRESS NOTE: DATE OF SERVICE: June 29, 2019 SUBJECTIVE: No acute events reported overnight. Nursing staff on day shift and night report that the patient has appeared more alert since lowering the anticonvulsant medication. The patient has been able to interact better with staff today and has been able to eat with assistance without showing any evidence of increased risk for aspiration. OBJECTIVE: The patient's Vimpat dosing was decreased from 100 mg twice daily to 50 mg twice daily. This was adjusted due to the patient noted by staff to become extremely sedated after receiving her dosing. It appears that this reduction in dosage has been beneficial. EEG was completed and did not show any evidence of electrographic seizures or epileptiform discharges. Ammonia level, TSH, free T4, B12 and folate level still pending. Occupational therapy's note reviewed. Agree with recommendation for referral back to subacute rehab facility. EXAMINATION: VITAL SIGNS: Stable, afebrile. MENTAL STATUS: Patient was asleep, but arousable for examination. Once aroused, she was more alert compared to yesterday's exam. She is quite slow to responding to questions, but can respond to simple questions and follow simple commands. The patient's affect is flat, characteristic of Parkinson disease. The patient also has very little spontaneous movement in the extremities. Pupils are 2 mm, sluggishly reactive to light, but symmetric. Cranial nerve examination: Extraocular movements are full. There is no nystagmus noted on vertical or horizontal gaze. There is some difficulty with vertical upgaze. Face appears symmetric. The palate elevates symmetric. Gag reflex is present. Tongue is midline without fasciculations or deviation. Motor examination: Mild increased rigidity is noted in the upper extremities bilaterally. The patient moves all 4 extremities equally when tested. Strength formal testing was difficult due to the patient being quite slow and hypokinetic in her movements. Deep tendon reflexes were absent throughout. Sensory examination: The patient was unable to respond appropriately to intact sensation to light touch. ASSESSMENT AND RECOMMENDATIONS: This is an 88-year-old female who is being followed for altered mental status. She has a reported seizure disorder and on admission was on high dose of Vimpat at 100 mg twice daily. A reduction in her dosing has seen notable changes today. The staff reports she is more responsive and is more interactive. However, on my examination today, this patient still has significant expressive aphasia and has characteristics consistent with Parkinson disease. RECOMMENDATION: 1. Follow up with speech therapy and their evaluation. 2. Followup with labs ordered. 3. Continue with current dose of Vimpat at 50 mg b.i.d. 4. Agree with plan for discharge soon to subacute rehab. Thank you for this consultation. Neurology will continue to follow daily and make recommendations and discuss plan with staff and family. ALLEGRA / ADRIANA: [id number] / MTDD
[2019-06-30 06:42] LABS: Glucose,Whole Blood 158 mg/dL (75-99)
[2019-06-30] MEDS: SODIUM CHLORIDE 0.9% 1,000 ML IV SCH (06:47)
[2019-06-30] MEDS: FAMOTIDINE 20 MG TAB PO SCH (07:50)
[2019-06-30] MEDS: INSULIN ASPART (NovoLOG) 100 UNIT/ML VIAL SQ SCH ×2 (07:50→13:10)
[2019-06-30] MEDS: LACOSAMIDE 50 MG TABLET PO SCH (07:50)
[2019-06-30] MEDS: ASPIRIN 81 MG PO SCH (07:50)
[2019-06-30] MEDS: POTASSIUM CHLORIDE ER 20 MEQ TAB.ER PO SCH (07:50)
[2019-06-30] MEDS: CLOPIDOGREL 75 MG TAB PO SCH (07:50)
[2019-06-30] MEDS: FUROSEMIDE 20 MG TAB PO SCH (07:50)
[2019-06-30] MEDS: METOPROLOL TARTRATE 12.5 MG TAB PO SCH (07:50)
[2019-06-30] MEDS: FLUCONAZOLE 100 MG TAB PO SCH (07:51)
[2019-06-30] MEDS: amLODIPine 2.5 MG TAB PO SCH (07:51)
[2019-06-30] MEDS: MENTHOL-ZINC OXIDE OINT 113 GM TUBE TOPICAL SCH (07:51)
[2019-06-30 07:56] LABS: Albumin 3.4 g/dL (3.5-5.0); Calcium 9.7 mg/dL (8.4-10.2); Potassium 4.1 mmol/L (3.5-5.1); Total Bilirubin 0.6 mg/dL (0.2-1.3); Total Protein 6.3 g/dL (6.3-8.2)
[2019-06-30 08:19] LABS: Basophils % (A) 0 %; Eosinophils # (A) 0.3 k/uL (0-0.7); Eosinophils % (A) 3 %; HCT 36.9 % (34.0-46.0); HGB 11.8 gm/dL (11.4-16.0); Lymphocytes # (A) 0.8 k/uL (1.0-4.8); Lymphocytes % (A) 8 %; MCV 96.7 fL (80.0-100.0); Mean Platelet Volume 7.9; Monocytes # (A) 0.5 k/uL (0-1.0); Monocytes % (A) 5 %; Neutrophils % (A) 84 %; Platelet Count 408 k/uL (150-450); RBC 3.82 m/uL (3.80-5.40); RDW 15.2 % (11.5-15.5); WBC 10.8 k/uL (3.8-10.6)
[2019-06-30 08:33] VITALS: BP 135/78; PULSE 92; RESP 14; TEMP 97.9
[2019-06-30 11:17] LABS: Glucose,Whole Blood 240 mg/dL (75-99)
--- NOTE | 2019-06-30 12:12 | P.DS ---
Providers Date of admission: 06/25/19 14:45 Expected date of discharge: 06/30/19 Attending physician: Yeny Fenton Consults: 06/24/19 00:05 Consult Physician Urgent Consulting Provider: Teresa Harris Consult Reason/Comments: acute, recurrent encephalopathy Do you want consulting provider notified?: Yes 06/24/19 15:46 Consult Physician Routine Consulting Provider: Franchesca Costa Consult Reason/Comments: UTI Sepsis Do you want consulting provider notified?: Yes 06/24/19 16:11 Consult Physician Routine Consulting Provider: Patricia Puri Consult Reason/Comments: elevated troponin Do you want consulting provider notified?: Yes 06/24/19 16:27 Consult Physician Routine Consulting Provider: Baljinder Shen Consult Reason/Comments: recurrent UTI Do you want consulting provider notified?: Yes Primary care physician: Yeny Fenton [facility] Course: Diagnoses on discharge: #1 episodes of unresponsiveness, cause is unclear, neurology consultation requested again, on previous admission patient was evaluated for similar episodes, it was felt by neurology that this may represent seizure activity, she was started on Keppra, subsequently this was changed to Vimpat, patient was still having episodes however less frequently #2 urinary tract infection with sepsis elevated white blood count of 27,000 elevated lactic acid, patient was started on IV fluid and IV Rocephin, infectious disease consultation requested Urology consultation requested to assess cause of recurrent urinary tract infections #3 history of hypertension maintained on amlodipine and hydralazine continue #4 history of [id number] diabetes mellitus #5 slight elevation in troponin level cardiology consultation was requested #6 evidence of dehydration with acute kidney injury patient is maintained on IV fluid normal saline at 75 mL an hour #7 history of hyperlipidemia maintained on Pravachol Hospital course: Flory Sims is an 88-year-old female with multiple recent admissions to the hospital, she is currently a resident at [facility], she is having multiple episodes of loss of consciousness and and responsiveness lasting from a few minutes to a few hours, she was admitted to the hospital 3 times, she was evaluated by neurology, no evidence of acute stroke, patient had an MRI of the brain last admission, it was felt by neurology that the patient may be having seizure activity with prolonged post ictal state she was started on Keppra however she continued to have similar episodes on her next admission Keppra was discontinued and patient was started on Vimpat. Patient was stable for a few days at the [facility] however she started having episodes of loss of consciousness again, it was felt by the nurse at the [facility] that patient was weaker on the left side, hence she was transferred to emergency room for evaluation of a possible stroke. Patient was evaluated in the emergency room there was no evidence of weakness on the left side however she had evidence of urinary tract infection and white blood count elevated at 27,000 she was started on IV Rocephin and was admitted to medical floor. Consultation for neurology and infectious disease were initiated. On 06/25/2019 patient was seen and examined on the medical floor she is alert and oriented in no apparent distress she is answering questions appropriately there is no fever or chills no headache or dizziness no chest pain no shortness of breath no cough no nausea or vomiting no abdominal pain no diarrhea no bu rning was urination no frequency or urgency and no hematuria. Nurse did not report any new episodes of loss of consciousness or unresponsiveness. On 06/26/2019 patient was seen and examined on the medical floor she is alert and oriented in no distress, there is no fever or chills no headache or dizziness no chest pain no shortness of breath no cough no nausea or vomiting no abdominal pain no diarrhea no burning was urination no frequency or urgency and no hematuria. Nurse did not report any new episodes of loss of unresponsiveness. On 06/27/2019 patient was seen and examined on the medical floor she is sitting up in a chair she is more alert today there is no fever or chills no headache or dizziness no chest pain no shortness of breath no cough no nausea or vomiting no abdominal pain no diarrhea and no urinary symptoms. No new episodes of loss of consciousness reported. On 06/28/2019 patient was seen and examined on the medical floor she is alert, responsive, in no apparent distress there is no fever or chills no headache or dizziness no chest pain no shortness of breath no cough no nausea or vomiting no abdominal pain no diarrhea and no urinary symptoms. Nurse Lourdes contacted no new episodes of loss of consciousness or and responsiveness reported. On 06/29/2019 Patient was seen and examined on the medical floor, she is more alert and responsive today, there is no fever or chills no headache no dizziness, no chest pain no SOB, no cough, no nausea or vomiting, no abdominal pain and no urinary symptoms. no new episodes of loss of consciousness. On 06/30/2019 patient was seen and examined on the medical floor she is alert and responsive in no apparent distress there is no fever or chills no headache or dizziness no chest pain no shortness of breath no cough no nausea or vomiting no abdominal pain no diarrhea and no urinary symptoms. No new episodes of loss of consciousness reported, at this time patient will be transferred back to the [facility], she will be kept on Ceftin 250 mg twice a day for one week and on Diflucan 100 mg once a day for one week. Also during this admission Plavix 75 mg once daily was added to her regimen, Ecotrin dose decreased to 81 mg daily, Vimpat dose decreased to 50 mg twice daily. Will follow up closely at the [facility], with check weekly labs and twice weekly urine analysis. Patient Condition at Discharge: Stable Plan - Discharge Summary Discharge Rx Participant: Yes New Discharge Prescriptions: New Aspirin 81 mg PO DAILY chew Cefuroxime [Ceftin] 250 mg PO BID 7 Days #14 tab Fluconazole [Diflucan] 100 mg PO DAILY 7 Days #7 tab Metoprolol Tartrate [Lopressor] 12.5 mg PO BID tab Famotidine [Pepcid] 20 mg PO DAILY tab Clopidogrel [Plavix] 75 mg PO DAILY tab Lacosamide [Vimpat] 50 mg PO BID tablet Continue INSULIN LISPRO (HumaLOG) [humaLOG] See Protocol SQ ACHS Pravastatin Sodium [Pravachol] 40 mg PO HS@2100 Na Phos,M-B/Na Phos,Di-Ba [Fleet Adult] 133 ml RECTAL DAILY PRN PRN Reason: Constipation amLODIPine [Norvasc] 2.5 mg PO DAILY@0800 hydrALAZINE HCL [Apresoline] 25 mg PO Q8H PRN PRN Reason: bp>160/90 Furosemide [Lasix] 20 mg PO DAILY@0800 Acetaminophen Tab [Tylenol] 500 mg PO Q6H PRN tab PRN Reason: Mild Pain Bisacodyl 10 mg RECTAL DAILY PRN PRN Reason: Constipation Glucerna Shake 1 can PO TID@0800,1200,1700 Menthol-Zinc Oxide Oint [Calmoseptine Oint] 1 applic TOPICAL BID Potassium Chloride ER [K-Dur 20] 20 meq PO DAILY@0800 Magnesium Hydroxide [Milk of Magnesia Concentrate] 7,200 mg PO DAILY PRN PRN Reason: Constipation Discontinued Aspirin 325 mg PO DAILY@1700 Lacosamide [Vimpat] 100 mg PO BID@0800,1700 Discharge Medication List INSULIN LISPRO (HumaLOG) [humaLOG] See Protocol SQ ACHS 06/10/19 [History] Pravastatin Sodium [Pravachol] 40 mg PO HS@2100 06/10/19 [History] Furosemide [Lasix] 20 mg PO DAILY@0800 06/16/19 [History] Na Phos,M-B/Na Phos,Di-Ba [Fleet Adult] 133 ml RECTAL DAILY PRN 06/16/19 [History] amLODIPine [Norvasc] 2.5 mg PO DAILY@0800 06/16/19 [History] hydrALAZINE HCL [Apresoline] 25 mg PO Q8H PRN 06/16/19 [History] Acetaminophen Tab [Tylenol] 500 mg PO Q6H PRN tab 06/17/19 [Rx] Bisacodyl 10 mg RECTAL DAILY PRN 06/23/19 [History] Glucerna Shake 1 can PO TID@0800,1200,1700 06/23/19 [History] Magnesium Hydroxide [Milk of Magnesia Concentrate] 7,200 mg PO DAILY PRN 06/23/19 [History] Menthol-Zinc Oxide Oint [Calmoseptine Oint] 1 applic TOPICAL BID 06/23/19 [History] Potassium Chloride ER [K-Dur 20] 20 meq PO DAILY@0800 06/23/19 [History] Aspirin 81 mg PO DAILY chew 06/30/19 [Rx] Cefuroxime [Ceftin] 250 mg PO BID 7 Days #14 tab 06/30/19 [Rx] Clopidogrel [Plavix] 75 mg PO DAILY tab 06/30/19 [Rx] Famotidine [Pepcid] 20 mg PO DAILY tab 06/30/19 [Rx] Fluconazole [Diflucan] 100 mg PO DAILY 7 Days #7 tab 06/30/19 [Rx] Lacosamide [Vimpat] 50 mg PO BID tablet 06/30/19 [Rx] Metoprolol Tartrate [Lopressor] 12.5 mg PO BID tab 06/30/19 [Rx] Follow up Appointment(s)/Referral(s): Yeny Fenton MD [Primary Care Provider] - 1-2 days
--- NOTE | 2019-06-30 16:00 | PN ---
PROGRESS NOTE DATE OF SERVICE: 06/30/2019 REASON FOR FOLLOWUP: Urinary tract infection. INTERVAL HISTORY: The patient is currently afebrile. The patient is more awake and alert today. She is breathing comfortably. No chest pain or cough. No abdominal pain or diarrhea. PHYSICAL EXAMINATION: Blood pressure 135/78 with a pulse of 92, temperature 97.9. She is 93% on room air. General description is an elderly female lying in bed in no distress. RESPIRATORY SYSTEM: Unlabored breathing. Clear to auscultation anteriorly. HEART: S1, S2. Regular rate and rhythm. ABDOMEN: Soft. No tenderness. LABS: Hemoglobin is 11.8, white count 10.9, BUN of 33, creatinine 1.22. DIAGNOSTIC IMPRESSION AND PLAN: Patient admitted to hospital with mental status changes in this patient who did have a component of urinary tract infection. Urine has been Concha albicans. The patient is covered with Diflucan; to continue to finish a course of therapy. Monitor clinical course closely. MMODL / PAYAMN: [id number] /
== END 2019-06-30 15:33 | disposition home or self-care (01) | DRG 871 ==
LOC: EC 21:38 → 4SSUR 06-24 00:08 → OBSVTOIN 06-25 14:45
PROVIDERS: ADMIT Internal Medicine; ATTEND Internal Medicine
DX: B37.7 Candidal sepsis (principal); G93.41 Metabolic encephalopathy; J18.9 Pneumonia, unspecified organism; G81.94 Hemiplegia, unspecified affecting left nondominant side; I31.3 Pericardial effusion (noninflammatory); J44.0 Chronic obstructive pulmonary disease with (acute) lower respiratory infection; N17.9 Acute kidney failure, unspecified; B37.49 Other urogenital candidiasis; E03.9 Hypothyroidism, unspecified; E11.22 Type 2 diabetes mellitus with diabetic chronic kidney disease; E78.5 Hyperlipidemia, unspecified; E86.0 Dehydration; G40.909 Epilepsy, unspecified, not intractable, without status epilepticus; G83.84 Todd's paralysis (postepileptic); Z20.828 Contact with and (suspected) exposure to other viral communicable diseases; R65.20 Severe sepsis without septic shock; G20 Parkinson's disease; M19.90 Unspecified osteoarthritis, unspecified site; I07.1 Rheumatic tricuspid insufficiency; I12.9 Hypertensive chronic kidney disease with stage 1 through stage 4 chronic kidney disease, or unspecified chronic kidney disease; I27.20 Pulmonary hypertension, unspecified; N18.9 Chronic kidney disease, unspecified; N28.1 Cyst of kidney, acquired; R32 Unspecified urinary incontinence; R15.9 Full incontinence of feces; Z79.02 Long term (current) use of antithrombotics/antiplatelets; Z79.82 Long term (current) use of aspirin; Z79.899 Other long term (current) drug therapy; Z87.440 Personal history of urinary (tract) infections; Z90.710 Acquired absence of both cervix and uterus
CPT/HCPCS: 36415; 70549; 70553; 71045; 76770; 80053; 81001; 82140; 82550; 82607; 82746; 84443; 84484; 85025; 85610; 85730; 87040; 87086; 87635; 93005; 95819; 96374; 99285

== ENCOUNTER 2019-07-26 11:11 | Inpatient (IN) | payer MEDICARE ==
[2019-07-26] MEDS ORDERED: SODIUM CHLORIDE 0.9% 1,000 ML IV ONE ×2 (11:36→13:14)
--- NOTE | 2019-07-26 11:46 | ED ---
General Adult HPI - General Chief complaint: Recheck/Abnormal Lab/Rx Stated complaint: Bp issues, some confusion Time Seen by Provider: 07/26/19 11:15 Source: patient, EMS, RN notes reviewed, old records reviewed Mode of arrival: EMS Limitations: altered mental status - History of Present Illness Initial comments: This is an 88-year-old female presents to the emergency department who was sent in to the emergency department because she is been altered over the last few days and getting increasingly altered. Home health aide saw her and thought her blood pressure was low 80s systolic however when EMS her blood pressure and mental we took her blood pressure in the emergency department it was normal. Patient herself is confused so she is a poor historian but she denies being in any pain. There is no reports of any problems breathing fever or nausea vomiting diarrhea.there is no history of recent trauma. - Related Data Home Medications Medication Instructions Recorded Confirmed Furosemide [Lasix] 20 mg PO QAM 06/16/19 07/26/19 amLODIPine [Norvasc] 2.5 mg PO QAM 06/16/19 07/26/19 hydrALAZINE HCL [Apresoline] 25 mg PO TID PRN 06/16/19 07/26/19 Cranberry Tablet (Unknown Strength) 2 tab PO BID 07/26/19 07/26/19 Famotidine [Pepcid] 20 mg PO HS 07/26/19 07/26/19 Levofloxacin [Levaquin] 500 mg PO QAM 07/26/19 07/26/19 Metoprolol Tartrate [Lopressor] 12.5 mg PO BID 07/26/19 07/26/19 Naproxen Sodium [Aleve] 440 mg PO ONCE PRN 07/26/19 07/26/19 Ondansetron HCl [Zofran] 8 mg PO TID PRN 07/26/19 07/26/19 Pioglitazone [Actos] 15 mg PO QAM 07/26/19 07/26/19 Pravastatin Sodium [Pravachol] 40 mg PO HS 07/26/19 07/26/19 metroNIDAZOLE [Flagyl] 500 mg PO TID 07/26/19 07/26/19 Allergies Allergy/AdvReac Type Severity Reaction Status Date / Time No Known Allergies Allergy Verified 07/26/19 12:42 Review of Systems ROS Statement: Those systems with pertinent positive or pertinent negative responses have been documented in the HPI. ROS Other: All systems not noted in ROS Statement are negative. Past Medical History Past Medical History: Cancer, COPD, Diabetes Mellitus, Hyperlipidemia, Hypertension, Osteoarthritis (OA), Renal Disease, Thyroid Disorder Additional Past Medical History / Comment(s): questionable Seizures recently placed on Keppra (last admission) History of Any Multi-Drug Resistant Organisms: None Reported Past Surgical History: Hysterectomy Additional Past Surgical History / Comment(s): Back surgery, abdominal surgery Past Anesthesia/Blood Transfusion Reactions: Unable to Obtain Past Psychological History: Unable to Obtain Smoking Status: Never smoker Past Alcohol Use History: None Reported Past Drug Use History: None Reported - Past Family History Father History Unknown: Yes Mother History Unknown: Yes General Exam - General Exam Comments Initial Comments: GENERAL: Patient is well-developed and well-nourished. Patient is nontoxic and well- hydrated and is in no acute distress. ENT: Neck is soft and supple. No significant lymphadenopathy is noted. Oropharynx is clear. Moist mucous membranes. Neck has full range of motion without eliciting any pain. EYES: The sclera were anicteric and conjunctiva were pink and moist. Extraocular movements were intact and pupils were equal round and reactive to light. Eyelids were unremarkable. PULMONARY: Unlabored respirations. Good breath sounds bilaterally. No audible rales r honchi or wheezing was noted. CARDIOVASCULAR: There is a regular rate and rhythm without any murmurs gallops or rubs. ABDOMEN: Soft and nontender with normal bowel sounds. No palpable organomegaly was noted. There is no palpable pulsatile mass. SKIN: Skin is clear with no lesions or rashes and otherwise unremarkable. NEUROLOGIC: Patient is alert and oriented 2. Cranial nerves II through XII are grossly intact. Motor and sensory are also intact. Normal speech, volume and content. Symmetrical smile. MUSCULOSKELETAL: Normal extremities with adequate strength and full range of motion. No lower extremity swelling or edema. No calf tenderness. LYMPHATICS: No significant lymphadenopathy is noted PSYCHIATRIC: Normal psychiatric evaluation. Limitations: altered mental status Course Vital Signs 07/26/19 07/26/19 07/26/19 11:16 12:00 13:00 Temperature 97.8 F Pulse Rate 131 H 109 H 101 H Respiratory 18 18 18 Rate Blood Pressure 117/105 117/57 129/56 O2 Sat by Pulse 88 L 97 97 Oximetry Medical Decision Making - Medical Decision Making EKG shows sinus tachycardia 115 bpm with occasional PVC IN interval is 206 QRS is 76 QT interval 02 QTC is 417. EKG shows no ST segment elevation however there is some inverted T waves in precordial leads V4 through the 6 as well as 1 and aVL new Chest x-ray showed no acute abnormality. I called some physicians he agreed to admit the patient admitted the patient I wrote admitting orders - Lab Data Result diagrams: 07/26/19 11:27 07/26/19 11:27 Lab Results 07/26/19 07/26/19 07/26/19 Range/Units 11:27 11:27 11:27 WBC 17.1 H (3.8-10.6) k/uL RBC 3.73 L (3.80-5.40) m/uL Hgb 11.7 (11.4-16.0) gm/dL Hct 36.3 (34.0-46.0) % MCV 97.2 (80.0-100.0) fL MCH 31.3 (25.0-35.0) pg MCHC 32.2 (31.0-37.0) g/dL RDW 15.1 (11.5-15.5) % Plt Count 245 (150-450) k/uL Neutrophils % 92 % Lymphocytes % 3 % Monocytes % 4 % Eosinophils % 1 % Basophils % 0 % Neutrophils # 15.7 H (1.3-7.7) k/uL Lymphocytes # 0.5 L (1.0-4.8) k/uL Monocytes # 0.7 (0-1.0) k/uL Eosinophils # 0.1 (0-0.7) k/uL Basophils # 0.0 (0-0.2) k/uL PT 11.4 (9.0-12.0) sec INR 1.1 (<1.2) APTT 21.3 L (22.0-30.0) sec Sodium 138 (137-145) mmol/L Potassium 3.2 L (3.5-5.1) mmol/L Chloride 102 (98-107) mmol/L Carbon Dioxide 21 L (22-30) mmol/L Anion Gap 15 mmol/L BUN 24 H (7-17) mg/dL Creatinine 2.54 H (0.52-1.04) mg/dL Est GFR (CKD-EPI)AfAm 19 (>60 ml/min/1.73 sqM) Est GFR (CKD-EPI)NonAf 16 (>60 ml/min/1.73 sqM) Glucose 285 H (74-99) mg/dL Calcium 8.6 (8.4-10.2) mg/dL Total Bilirubin 0.8 (0.2-1.3) mg/dL AST 25 (14-36) U/L ALT 16 (4-34) U/L Alkaline Phosphatase 50 (38-126) U/L Troponin I (0.000-0.034) ng/mL Total Protein 6.1 L (6.3-8.2) g/dL Albumin 3.5 (3.5-5.0) g/dL Urine Color Urine Appearance (Clear) Urine pH (5.0-8.0) Ur Specific Nelson (1.001-1.035) Urine Protein (Negative) Urine Glucose (UA) (Negative) Urine Ketones (Negative) Urine Blood (Negative) Urine Nitrite (Negative) Urine Bilirubin (Negative) Urine Urobilinogen (<2.0) mg/dL Ur Leukocyte Esterase (Negative) Urine RBC (0-5) /hpf Urine WBC (0-5) /hpf Ur Squamous Epith Cells (0-4) /hpf Urine Bacteria (None) /hpf Hyaline Casts (0-2) /lpf Urine Mucus (None) /hpf Urine Opiates Screen (NotDetected) Ur Oxycodone Screen (NotDetected) Urine Methadone Screen (NotDetected) Ur Propoxyphene Screen (NotDetected) Ur Barbiturates Screen (NotDetected) U Tricyclic Antidepress (NotDetected) Ur Phencyclidine Scrn (NotDetected) Ur Amphetamines Screen (NotDetected) U Methamphetamines Scrn (NotDetected) U Benzodiazepines Scrn (NotDetected) Urine Cocaine Screen (NotDetected) U Marijuana (THC) Screen (NotDetected) 07/26/19 07/26/19 Range/Units 11:27 12:13 WBC (3.8-10.6) k/uL RBC (3.80-5.40) m/uL Hgb (11.4-16.0) gm/dL Hct (34.0-46.0) % MCV (80.0-100.0) fL MCH (25.0-35.0) pg MCHC (31.0-37.0) g/dL RDW (11.5-15.5) % Plt Count (150-450) k/uL Neutrophils % % Lymphocytes % % Monocytes % % Eosinophils % % Basophils % % Neutrophils # (1.3-7.7) k/uL Lymphocytes # (1.0-4.8) k/uL Monocytes # (0-1.0) k/uL Eosinophils # (0-0.7) k/uL Basophils # (0-0.2) k/uL PT (9.0-12.0) sec INR (<1.2) APTT (22.0-30.0) sec Sodium (137-145) mmol/L Potassium (3.5-5.1) mmol/L Chloride (98-107) mmol/L Carbon Dioxide (22-30) mmol/L Anion Gap mmol/L BUN (7-17) mg/dL Creatinine (0.52-1.04) mg/dL Est GFR (CKD-EPI)AfAm (>60 ml/min/1.73 sqM) Est GFR (CKD-EPI)NonAf (>60 ml/min/1.73 sqM) Glucose (74-99) mg/dL Calcium (8.4-10.2) mg/dL Total Bilirubin (0.2-1.3) mg/dL AST (14-36) U/L ALT (4-34) U/L Alkaline Phosphatase (38-126) U/L Troponin I 0.031 (0.000-0.034) ng/mL Total Protein (6.3-8.2) g/dL Albumin (3.5-5.0) g/dL Urine Color Light Red Urine Appearance Cloudy H (Clear) Urine pH 5.0 (5.0-8.0) Ur Specific Nelson 1.016 (1.001-1.035) Urine Protein Trace H (Negative) Urine Glucose (UA) Negative (Negative) Urine Ketones Negative (Negative) Urine Blood Trace H (Negative) Urine Nitrite Negative (Negative) Urine Bilirubin Negative (Negative) Urine Urobilinogen <2.0 (<2.0) mg/dL Ur Leukocyte Esterase Small H (Negative) Urine RBC 3 (0-5) /hpf Urine WBC 3 (0-5) /hpf Ur Squamous Epith Cells 31 H (0-4) /hpf Urine Bacteria Rare H (None) /hpf Hyaline Casts 167 H (0-2) /lpf Urine Mucus Few H (None) /hpf Urine Opiates Screen Detected H (NotDetected) Ur Oxycodone Screen Not Detected (NotDetected) Urine Methadone Screen Not Detected (NotDetected) Ur Propoxyphene Screen Not Detected (NotDetected) Ur Barbiturates Screen Not Detected (NotDetected) U Tricyclic Antidepress Not Detected (NotDetected) Ur Phencyclidine Scrn Not Detected (NotDetected) Ur Amphetamines Screen Not Detected (NotDetected) U Methamphetamines Scrn Not Detected (NotDetected) U Benzodiazepines Scrn Not Detected (NotDetected) Urine Cocaine Screen Not Detected (NotDetected) U Marijuana (THC) Screen Not Detected (NotDetected) Disposition Clinical Impression: Altered mental status, Leukocytosis, Renal insufficiency Disposition: ADMITTED IP TO THIS HOSP Referrals: Micki Villalobos MD [Primary Care Provider] - 1-2 days Time of Disposition: 13:13
[2019-07-26 12:01] LABS: Albumin 3.5 g/dL (3.5-5.0); Calcium 8.6 mg/dL (8.4-10.2); Potassium 3.2 mmol/L (3.5-5.1); Total Bilirubin 0.8 mg/dL (0.2-1.3); Total Protein 6.1 g/dL (6.3-8.2)
[2019-07-26 12:04] LABS: Basophils % (A) 0 %; Eosinophils # (A) 0.1 k/uL (0-0.7); Eosinophils % (A) 1 %; HCT 36.3 % (34.0-46.0); HGB 11.7 gm/dL (11.4-16.0); Lymphocytes # (A) 0.5 k/uL (1.0-4.8); Lymphocytes % (A) 3 %; MCH 31.3 pg (25.0-35.0); MCHC 32.2 g/dL (31.0-37.0); MCV 97.2 fL (80.0-100.0); Mean Platelet Volume 8.9; Monocytes # (A) 0.7 k/uL (0-1.0); Monocytes % (A) 4 %; Neutrophils # (A) 15.7 k/uL (1.3-7.7); Neutrophils % (A) 92 %; Platelet Count 245 k/uL (150-450); RBC 3.73 m/uL (3.80-5.40); RDW 15.1 % (11.5-15.5); WBC 17.1 k/uL (3.8-10.6)
--- NOTE | 2019-07-26 12:05 | XR ---
EXAMINATION TYPE: XR chest 2V DATE OF EXAM: 07/26/2019 COMPARISON: Chest x-ray June 23, 2019. HISTORY: Cough and chest pain. TECHNIQUE: Frontal and lateral views of the chest are obtained. FINDINGS: There is chronic painful changes bilaterally without suspicious new focal air space opacit y, pleural effusion, or pneumothorax seen. 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 The osseous structures remain demineralized with multilevel spurring in the t horacic spine. IMPRESSION: Chronic changes and cardiomegaly without acute pulmonary process on current study.
[2019-07-26 12:09] LABS: INR 1.1 (<1.2); Prothrombin Time 11.4 sec (9.0-12.0)
[2019-07-26 12:16] LABS: Partial Thromboplastin Time 21.3 sec (22.0-30.0)
[2019-07-26 12:33] LABS: Appearance,Urine Cloudy (Clear); Bacteria,Urine Rare /hpf; Bilirubin,Urine Negative (Negative); Blood,Urine Trace (Negative); Color,Urine Light Red; Glucose,Urine (UA) Negative (Negative); Hyaline Casts,Urine 167 /lpf (0-2); Ketones,Urine Negative (Negative); Leukocyte Esterase,Urine Small (Negative); Mucus,Urine Few /hpf; Nitrite,Urine Negative (Negative); Protein,Urine Trace (Negative); RBC,Urine 3 /hpf (0-5); Specific Gravity,Urine 1.016 (1.001-1.035); Squamous Epithelial Cell,Urine 31 /hpf (0-4); Urobilinogen,Urine <2.0 mg/dL (<2.0); WBC,Urine 3 /hpf (0-5)
[2019-07-26 12:39] LABS: Amphetamine Screen,Urine Not Detected (NotDetected); Barbiturate Screen,Urine Not Detected (NotDetected); Benzodiazepines Screen,Urine Not Detected (NotDetected); Cocaine Screen,Urine Not Detected (NotDetected); Methadone Screen, Urine Not Detected (NotDetected); Opiate Screen,Urine Detected (NotDetected); Oxycodone Screen, Urine Not Detected (NotDetected); Phencyclidine Screen,Urine Not Detected (NotDetected); Tricyclic Antidepressant,Urine Not Detected (NotDetected); Urn Cannabinoid Scrn Not Detected (NotDetected)
[2019-07-26] MEDS ORDERED: ACETAMINOPHEN TAB 325 MG TAB PO PRN (17:11)
[2019-07-26] MEDS ORDERED: Potassium Replacement Protocol 1 EACH MISC MISCELLANE PRN (17:11)
[2019-07-26] MEDS ORDERED: NALOXONE 0.4 MG/ML 1 ML VIAL IV PRN (17:11)
[2019-07-26 17:16] LABS: Glucose,Whole Blood 164 mg/dL (75-99)
--- NOTE | 2019-07-26 17:22 | P.HPIM ---
History of Present Illness H&P Date: 07/26/19 Chief Complaint: Metabolic encephalopathy 88-year-old female with PMH of frequent UTI, diabetes mellitus, hypertension, dyslipidemia, chronic kidney disease, history of questionable seizures and altered mentation presents to the ED after being sent by home nursing. EMS was called by home nursing when they noticed that patient was more confused than usual and hypotensive. Patient has quite slow to respond but is answering questions appropriately. She has no complaints. She denies any headaches, lower extremity edema, nausea or vomiting, fever or chills, cough, chest pain, shortness of breath, palpitations, changes in urination or bowel habits. She does report a decreased appetite. She denies any dizziness, numbness/weakness/tingling of the extremities. In the ED, she was hypoxic to 88% on room air and tachycardic with heart rate of 131. CBC shows a leukocy tosis of 17.1 with neutrophilia and leukopenia. INR was 1.1. CMP showed potassium of 3.2, bicarbonate of 21, BUN 24, creatinine 2.54 and glucose of 285. Troponin was 0.031, EKG showing sinus tachycardia with PVCs and T-wave abnormalities. Urinalysis showed small leukocyte esterase. UDS was positive for opiates. Chest x-ray showed chronic changes. Patient is admitted for altered mentation and sepsis with neurology consultation. Review of Systems Pertinent positives and negatives as discussed in HPI, a complete review of systems was performed and all other systems are negative. Past Medical History Past Medical History: Cancer, COPD, Diabetes Mellitus, Hyperlipidemia, Hypertension, Osteoarthritis (OA), Renal Disease, Thyroid Disorder Additional Past Medical History / Comment(s): questionable Seizures History of Any Multi-Drug Resistant Organisms: None Reported Past Surgical History: Hysterectomy Additional Past Surgical History / Comment(s): Back surgery Past Anesthesia/Blood Transfusion Reactions: Unable to Obtain Past Psychological History: Unable to Obtain Smoking Status: Never smoker Past Alcohol Use History: None Reported Past Drug Use History: None Reported - Past Family History Father History Unknown: Yes Mother History Unknown: Yes Medications and Allergies Home Medications Medication Instructions Recorded Confirmed Type Furosemide [Lasix] 20 mg PO QAM 06/16/19 07/26/19 History amLODIPine [Norvasc] 2.5 mg PO QAM 06/16/19 07/26/19 History hydrALAZINE HCL [Apresoline] 25 mg PO TID PRN 06/16/19 07/26/19 History Cranberry Tablet (Unknown Strength) 2 tab PO BID 07/26/19 07/26/19 History Famotidine [Pepcid] 20 mg PO HS 07/26/19 07/26/19 History Levofloxacin [Levaquin] 500 mg PO QAM 07/26/19 07/26/19 History Metoprolol Tartrate [Lopressor] 12.5 mg PO BID 07/26/19 07/26/19 History Naproxen Sodium [Aleve] 440 mg PO ONCE PRN 07/26/19 07/26/19 History Ondansetron HCl [Zofran] 8 mg PO TID PRN 07/26/19 07/26/19 History Pioglitazone [Actos] 15 mg PO QAM 07/26/19 07/26/19 History Pravastatin Sodium [Pravachol] 40 mg PO HS 07/26/19 07/26/19 History metroNIDAZOLE [Flagyl] 500 mg PO TID 07/26/19 07/26/19 History Allergies Allergy/AdvReac Type Severity Reaction Status Date / Time No Known Allergies Allergy Verified 07/26/19 12:42 Physical Exam Vitals: Vital Signs Temp Pulse Pulse Resp BP BP Pulse Ox 07/26/19 14:50 97.7 F 101 H 20 121/59 96 07/26/19 14:08 97.8 F 98 20 126/74 94 L 07/26/19 13:00 101 H 18 129/56 97 07/26/19 12:00 109 H 18 117/57 97 07/26/19 11:16 97.8 F 131 H 18 117/105 88 L Intake and Output 07/26/19 07/26/19 07/26/19 06:59 14:59 22:59 Other: Weight 54.431 kg 62 kg General: [non toxic], [no distress], [appears at stated age] Derm: [warm], [dry] Head: [atraumatic], [normocephalic], [symmetric] Eyes: [EOMI], [no lid lag], [anicteric sclera] Mouth: [no lip lesion], [mucus membranes moist] Cardiovascular: [S1S2 reg], [tachycardic], [positive DP pulse bilateral], Lungs: [Decreased breath sounds bilateral], [no rhonchi, no rales] , [no accessory muscle use] Abdominal: [soft], [ nontender to palpation], [no guarding], [no appreciable organomegaly] Ext: [no gross muscle atrophy], [no edema], [no contractures] Neuro: [ CN II-XI grossly intact], [no focal neuro deficits] Psych: [Slow to respond but answering questions appropriately] Results CBC & Chem 7: 07/26/19 11:27 07/26/19 11:27 Labs: Abnormal Lab Results - Last 24 Hours (Table) 07/26/19 07/26/19 07/26/19 Range/Units 11:27 11:27 11:27 WBC 17.1 H (3.8-10.6) k/uL RBC 3.73 L (3.80-5.40) m/uL Neutrophils # 15.7 H (1.3-7.7) k/uL Lymphocytes # 0.5 L (1.0-4.8) k/uL APTT 21.3 L (22.0-30.0) sec Potassium 3.2 L (3.5-5.1) mmol/L Carbon Dioxide 21 L (22-30) mmol/L BUN 24 H (7-17) mg/dL Creatinine 2.54 H (0.52-1.04) mg/dL Glucose 285 H (74-99) mg/dL Total Protein 6.1 L (6.3-8.2) g/dL Urine Appearance (Clear) Urine Protein (Negative) Urine Blood (Negative) Ur Leukocyte Esterase (Negative) Ur Squamous Epith Cells (0-4) /hpf Urine Bacteria (None) /hpf Hyaline Casts (0-2) /lpf Urine Mucus (None) /hpf Urine Opiates Screen (NotDetected) 07/26/19 Range/Units 12:13 WBC (3.8-10.6) k/uL RBC (3.80-5.40) m/uL Neutrophils # (1.3-7.7) k/uL Lymphocytes # (1.0-4.8) k/uL APTT (22.0-30.0) sec Potassium (3.5-5.1) mmol/L Carbon Dioxide (22-30) mmol/L BUN (7-17) mg/dL Creatinine (0.52-1.04) mg/dL Glucose (74-99) mg/dL Total Protein (6.3-8.2) g/dL Urine Appearance Cloudy H (Clear) Urine Protein Trace H (Negative) Urine Blood Trace H (Negative) Ur Leukocyte Esterase Small H (Negative) Ur Squamous Epith Cells 31 H (0-4) /hpf Urine Bacteria Rare H (None) /hpf Hyaline Casts 167 H (0-2) /lpf Urine Mucus Few H (None) /hpf Urine Opiates Screen Detected H (NotDetected) Thrombosis Risk Factor Assmnt - Choose All That Apply Any of the Below Risk Factors Present?: Yes Other Risk Factors: Yes Each Risk Factor Represents 3 Points: Age 75 years or older Other congenital or acquired thrombophilia - If yes, enter type in comment: No Thrombosis Risk Factor Assessment Total Risk Factor Score: 3 Thrombosis Risk Factor Assessment Level: Moderate Risk Assessment and Plan Assessment: Acute encephalopathy Sepsis with unknown etiology with abnormal urinalysis Acute kidney injury on chronic kidney disease Hypokalemia Diabetes mellitus with hyperglycemia Protein calorie malnutrition Patient was sent to the hospital for confusion and hypotension. Unsure of baseline. Attempted to call son Lion but went to voicemail. Plans: CT brain. Possibly infectious as patient meets sepsis criteria. Previously evaluated by Neurology for decreased responsiveness, started on Keppra and then Vimpat in 06/2019, not seen on home medication list. EEG negative previously. MRI brain negative for stroke on previous admission. Follow B12, RPR, TSH, ammonia, folate. Opiates seen on UDS but not part of home medications. Will need collateral information from son. Follow neurology consultation. Fall and seizure precautions. Patient meets sepsis criteria. Initially tachycardic. Leukocytosis. Urinalysis showing small leukocyte esterase. UDS positive for opiates. Plans: Follow blood culture. Follow lactic acid. Start Rocephin. Follow urine culture. Normal saline at 75 mL per hour. Obtain ultrasound of the gallbladder. Coronavirus testing pending. Follow pro-calcitonin. Telemetry monitoring. Creatinine 2.54. Likely from dehydration. Plans: Hydration as above. Repeat BMP tomorrow morning. Avoid nephrotoxins. Potassium 3.2. Plans: Replace via protocol. Repeat BMP tomorrow morning. [id number] glucose 285. Lines: Insulin sliding scale. Regular Accu-Cheks. Hyperglycemic precautions. BMI 23.5. Patient reports decreased appetite. Plans: Follow dietitian consultation. DVT prophylaxis: [Heparin] Discussed with: [Patient] Anticipated discharge: [1-2 days] Anticipated discharge place: [Home versus [facility]] A total of [45] minutes was spent on the care of this complex patient more than 50% of the time was spent in counseling and care coordination. Attempted to call son with phone number provided in the chart but went to voicemail. Will need collateral information regarding her CODE STATUS and her mentation at baseline. Prognosis is guarded.
[2019-07-26] MEDS: POTASSIUM CHLORIDE ER 20 MEQ TAB.ER PO SCH ×2 (18:10→20:44)
[2019-07-26] MEDS: INSULIN ASPART (NovoLOG) 100 UNIT/ML VIAL SQ SCH ×2 (18:11→20:40)
--- NOTE | 2019-07-26 18:27 | US ---
EXAMINATION TYPE: US renals and bladder DATE OF EXAM: 07/26/2019 COMPARISON: US June 25 2019 CLINICAL HISTORY: eduardo on ckd. EDUARDO on CKD. Poor historian. EXAM MEASUREMENTS: Right Kidney: 9.2 x 4.7 x 5.0 cm Left Kidney: 8.7 x 4.3 x 5.1 cm Right Kidney: Anechoic area seen inferiorly measurin.9 x 3.8 x 3.3 cm. Left Kidney: Anechoic area with debris and peripheral vascularity seen laterally measurin.3 x 1.5 x 1.3 cm. Kidney measures slightly small. Bladder: Not seen. Simple appearing 3.9 cm thin-walled cyst or focal level right kidney redemonstrated. Smaller 1.3 cm t hin-walled cysts left kidney laterally up to the mid pole level. Renal size is fairly symmetric lower limits of normal without hydronephrosis seen bilaterally. Bladder suboptimally evaluated as it is de compressed. IMPRESSION: No hydronephrosis noted bilaterally. No significant change from recent prior ultrasound.
--- NOTE | 2019-07-26 19:42 | CT ---
EXAMINATION TYPE: CT brain wo con DATE OF EXAM: 07/26/2019 HISTORY: Weakness and confusion. CT DLP: 1236 mGycm. Automated Exposure Control for Dose Reduction was Utilized. TECHNIQUE: CT scan of the head is performed without contrast. COMPARISON: CT brain April 07, 2010. MRI brain June 25, 2019. FINDINGS: There is no acute intracranial hemorrhage or midline shift identified. There is diffuse v entricular and sulcal prominence consistent with diffuse cerebral atrophy. There is low-attenuation in the deep and periventricular white matter consistent with chronic small vessel ischemic change. T he globes are intact and the visualized sinuses are clear. IMPRESSION: No acute intracranial hemorrhage or midline shift. There is mild to moderate diffuse ce rebral atrophy and more advanced chronic small vessel ischemic change redemonstrated. No significant change from most recent MRI.
[2019-07-26 20:24] LABS: Glucose,Whole Blood 111 mg/dL (75-99)
[2019-07-26] MEDS: HEPARIN SODIUM,PORCINE 5,000 UNIT/ML 1 ML VIAL SQ SCH (20:44)
[2019-07-26] MEDS: FAMOTIDINE 20 MG TAB PO SCH (20:44)
[2019-07-26] MEDS: PRAVASTATIN SODIUM 40 MG TAB PO SCH (20:44)
[2019-07-27 01:55] LABS: Glucose,Whole Blood 105 mg/dL (75-99)
[2019-07-27 06:26] LABS: Basophils % (A) 0 %; Eosinophils # (A) 0.5 k/uL (0-0.7); Eosinophils % (A) 4 %; HCT 30.2 % (34.0-46.0); Lymphocytes # (A) 0.7 k/uL (1.0-4.8); Lymphocytes % (A) 6 %; MCH 30.2 pg (25.0-35.0); MCV 97.4 fL (80.0-100.0); Mean Platelet Volume 8.3; Monocytes # (A) 0.7 k/uL (0-1.0); Monocytes % (A) 5 %; Neutrophils # (A) 10.7 k/uL (1.3-7.7); Neutrophils % (A) 85 %; Platelet Count 184 k/uL (150-450); RDW 15.2 % (11.5-15.5); WBC 12.6 k/uL (3.8-10.6)
[2019-07-27 06:34] LABS: HGB 9.4 gm/dL (11.4-16.0)
[2019-07-27 06:51] LABS: Glucose,Whole Blood 85 mg/dL (75-99)
[2019-07-27 06:58] LABS: Calcium 7.5 mg/dL (8.4-10.2); Potassium 3.5 mmol/L (3.5-5.1)
--- NOTE | 2019-07-27 08:10 | US ---
EXAMINATION TYPE: US gallbladder DATE OF EXAM: 07/27/2019 COMPARISON: NONE CLINICAL HISTORY: sepsis. sepsis EXAM MEASUREMENTS: Liver Length: 11.8 cm Gallbladder Wall: 0.2 cm CBD: 0.7 cm Right Kidney: 9.1 x 4.4 x 4.3 cm Technical limitations due to large amount of overlying bowel content Pancreas: Obscured by bowel gas Liver: only seen intercostally. No gross abnormality in the visualized portions. Gallbladder: only seen intercostally, no evidence of stones Evidence for sonographic La's sign: no CBD: appears wnl for the patient's age. Right Kidney: Anechoic cystic lesion lower pole = 3.7 x 3.1 x 3.3 IMPRESSION: Technically limited examination. No sonographic evidence of cholelithiasis or acute tamara cystitis.
[2019-07-27] MEDS: HEPARIN SODIUM,PORCINE 5,000 UNIT/ML 1 ML VIAL SQ SCH ×2 (08:55→21:06)
[2019-07-27] MEDS: INSULIN ASPART (NovoLOG) 100 UNIT/ML VIAL SQ SCH ×4 (08:56→21:05)
[2019-07-27 11:08] LABS: Glucose,Whole Blood 98 mg/dL (75-99)
[2019-07-27 11:46] LABS: Folate, Serum 7.7 ng/mL
[2019-07-27] MEDS: METOPROLOL TARTRATE 12.5 MG TAB PO SCH ×2 (12:24→21:05)
[2019-07-27 13:26] VITALS: BMI 23.4
--- NOTE | 2019-07-27 16:35 | P.PN ---
Subjective Progress Note Date: 07/27/19 Principal diagnosis: Confusion, orthostasis Patient was seen and examined. No acute events overnight. Patient has no complaints today. When she stood up this morning, she did experience some lightheadedness. Patient reports occasional dizziness when she is at home especially when going from a sitting to a standing position. Her confusion appears to be back at baseline. She denies any chest pain, shortness of breath or palpitations. No nausea or vomiting. No fever or chills. No abdominal pain or dysuria. Objective - Vital Signs Vital signs: Vital Signs Temp 97.8 F 07/27/19 12:05 Pulse 99 07/27/19 12:05 Resp 18 07/27/19 12:05 BP 131/65 07/27/19 12:05 Pulse Ox 97 07/27/19 12:05 Intake & Output 07/26/19 07/27/19 07/27/19 18:59 06:59 18:59 Intake Total 900 240 Balance 900 240 Weight 62 kg 62 kg Intake: Intake, IV Titration 900 Amount Sodium Chloride 0.9% 1, 900 000 ml @ 75 mls/hr IV . [id number] ONE Rx#:[id number] Oral 240 Other: Voiding Method Bedside Commode Bedside Commode # Voids 2 - Exam General: [non toxic], [no distress], [appears at stated age] Derm: [warm], [dry] Head: [atraumatic], [normocephalic], [symmetric] Eyes: [EOMI], [no lid lag], [anicteric sclera] Mouth: [no lip lesion], [mucus membranes moist] Cardiovascular: [S1S2 reg], [tachycardic], [positive DP pulse bilateral], Lungs: [Decreased breath sounds bilateral], [no rhonchi, no rales] , [no accessory muscle use] Abdominal: [soft], [ nontender to palpation], [no guarding], [no appreciable organomegaly] Ext: [no gross muscle atrophy], [no edema], [no contractures] Neuro: [no focal neuro deficits] Psych: [Slow to respond but answering questions appropriately] - Labs CBC & Chem 7: 07/27/19 05:52 07/27/19 05:52 Labs: Abnormal Lab Results - Last 24 Hours (Table) 07/26/19 07/26/19 07/26/19 Range/Units 17:12 18:41 20:23 WBC (3.8-10.6) k/uL RBC (3.80-5.40) m/uL Hgb (11.4-16.0) gm/dL Hct (34.0-46.0) % Neutrophils # (1.3-7.7) k/uL Lymphocytes # (1.0-4.8) k/uL Chloride (98-107) mmol/L Carbon Dioxide (22-30) mmol/L BUN (7-17) mg/dL Creatinine (0.52-1.04) mg/dL POC Glucose (mg/dL) 164 H 111 H (75-99) mg/dL Calcium (8.4-10.2) mg/dL Vitamin B12 (200.0-944.0) pg/mL Procalcitonin 0.22 H (0.02-0.09) ng/mL 07/27/19 07/27/19 07/27/19 Range/Units 01:54 05:52 05:52 WBC 12.6 H (3.8-10.6) k/uL RBC 3.10 L (3.80-5.40) m/uL Hgb 9.4 L D (11.4-16.0) gm/dL Hct 30.2 L (34.0-46.0) % Neutrophils # 10.7 H (1.3-7.7) k/uL Lymphocytes # 0.7 L (1.0-4.8) k/uL Chloride 115 H (98-107) mmol/L Carbon Dioxide 19 L (22-30) mmol/L BUN 18 H (7-17) mg/dL Creatinine 1.56 H (0.52-1.04) mg/dL POC Glucose (mg/dL) 105 H (75-99) mg/dL Calcium 7.5 L (8.4-10.2) mg/dL Vitamin B12 1039.0 H (200.0-944.0) pg/mL Procalcitonin (0.02-0.09) ng/mL Assessment and Plan Assessment: Acute encephalopathy likely related to hypotension Orthostatic hypotension possibly from over titration of antihypertensive medication SIRS criteria with abnormal urinalysis Acute kidney injury on chronic kidney disease Diabetes mellitus with hyperglycemia Protein calorie malnutrition Resolved: Hypokalemia Patient was sent to the hospital for confusion and hypotension. Unsure of baseline. CT brain negative for acute finding. B12 within normal limits. Syphilis testing negative. TSH within normal limits. Plans: Likely related to hypotensive episodes, continue NS at 75 cc/h. Possibly infectious as patient meets SIRS criteria, continue IV antibiotics and follow blood and urine culture. Previously evaluated by Neurology for decreased responsiveness, started on Keppra and then Vimpat in 06/2019, not seen on home medication list. EEG negative previously, repeat ordered by Neurology. MRI brain negative for stroke on previous admission. Opiates seen on UDS but not part of home medications. Follow neurology consultation. Fall and seizure precautions. Orthostats positive this morning. Plans: Continue normal saline at 75 mL per hour. Repeat orthostats tomorrow morning. Hold amlodipine and hydralazine. Continue metoprolol due to tachycardia. Patient meets SIRS. Initially tachycardic. Leukocytosis. Urinalysis showing small leukocyte esterase. Gallbladder ultrasound negative for gallbladder pathology. Coronavirus testing negative. Pro-calcitonin slightly elevated at 0.22. Lactic acid negative. Plans: Follow blood culture. Follow urine culture. Start Rocephin. Normal saline at 75 mL per hour. Telemetry monitoring. Creatinine 2.54-1.56. Likely from dehydration. Plans: Hydration as above. Repeat BMP tomorrow morning. Avoid nephrotoxins. [id number] glucose 92. Lines: Insulin sliding scale. Regular Accu-Cheks. Hyperglycemic precautions. BMI 23.5. Patient reports decreased appetite. Plans: Follow dietitian consultation. [Patient has no complaints. Appears at baseline. Found to be orthostatic positive, IV fluids continued, Antihypertensive medication held, Repeat orthostats tomorrow. Continue IV antibiotics for presumed UTI, follow urine and blood cultures. Neurology consult pending. Likely DC in 1-2 days.]
[2019-07-27] MEDS: SODIUM CHLORIDE 0.9% 1,000 ML IV SCH ×2 (16:49→22:40)
[2019-07-27 17:15] LABS: Glucose,Whole Blood 137 mg/dL (75-99)
--- NOTE | 2019-07-27 18:50 | P.CNNES ---
History of Present Illness Consult date: 07/27/19 Reason for Consult: Altered mental status Chief complaint: dizziness AMS fund by health care workers History of Present Illness: Thisis a new neurology consult requested for further advice and recommendations for Mrs. Sims a 88-year-old elderly female who has been admitted over the past year several times for altered mental status possible seizures dizziness review of her records indicates that she was found by the care workers to be hypotensive but by the time the paramedics arrived her blood pressure normalize d. In the emergency room she was found to be hypoxic on room air and 88% this corrected itself. Pertinent labs include her CBC which showed leukocytosis with neutrophilia. Of concern her urine drug screen showed positive for opiates however this patient is not on opiates per her home medications. Additional pertinent labs showed that she had low potassium at 3.2 BUN/creatinine were elevated 24 2.54. Glucose also elevated 285 total protein decreased 6.1. Next EKG showed sinus tachycardia with inverted T waves in V4 V6 1 and aVL. Her vital signs on admission showed also elevated diastolic blood pressure. 117/105. Since the patient's admission there is been no acute events reported. I have reviewed her medication chart and believe it could be several medications that are contributing to this dizziness and altered mental status. Levaquin is known to be highly lipophilic and neurotoxic. It is associated with nausea vomiting dizziness. There is also an increased risk for pseudomembranous colitis. This medication has been associated with ataxia and altered mental status. Flagyl is also associated with seizures ataxia confusion and agitation problems with coordination. With a combination of her being on Levaquin Flagyl and for unclear reasons opioids all would potentially increase her risk for further altered mental status, gait ataxia and incoordination. Past Medical History Past Medical History: Cancer, COPD, Diabetes Mellitus, Hyperlipidemia, Hypertension, Osteoarthritis (OA), Renal Disease, Thyroid Disorder Additional Past Medical History / Comment(s): questionable Seizures History of Any Multi-Drug Resistant Organisms: None Reported Past Surgical History: Hysterectomy Additional Past Surgical History / Comment(s): Back surgery Past Anesthesia/Blood Transfusion Reactions: Unable to Obtain Past Psychological History: Unable to Obtain Smoking Status: Never smoker Past Alcohol Use History: None Reported Past Drug Use History: None Reported - Past Family History Father History Unknown: Yes Mother History Unknown: Yes Medications and Allergies Home Medications Medication Instructions Recorded Confirmed Type Furosemide [Lasix] 20 mg PO QAM 06/16/19 07/26/19 History amLODIPine [Norvasc] 2.5 mg PO QAM 06/16/19 07/26/19 History hydrALAZINE HCL [Apresoline] 25 mg PO TID PRN 06/16/19 07/26/19 History Cranberry Tablet (Unknown Strength) 2 tab PO BID 07/26/19 07/26/19 History Famotidine [Pepcid] 20 mg PO HS 07/26/19 07/26/19 History Levofloxacin [Levaquin] 500 mg PO QAM 07/26/19 07/26/19 History Metoprolol Tartrate [Lopressor] 12.5 mg PO BID 07/26/19 07/26/19 History Naproxen Sodium [Aleve] 440 mg PO ONCE PRN 07/26/19 07/26/19 History Ondansetron HCl [Zofran] 8 mg PO TID PRN 07/26/19 07/26/19 History Pioglitazone [Actos] 15 mg PO QAM 07/26/19 07/26/19 History Pravastatin Sodium [Pravachol] 40 mg PO HS 07/26/19 07/26/19 History metroNIDAZOLE [Flagyl] 500 mg PO TID 07/26/19 07/26/19 History Allergies Allergy/AdvReac Type Severity Reaction Status Date / Time No Known Allergies Allergy Verified 07/26/19 12:42 Physical Examination - Vital Signs Vital Signs: Vital Signs Temp Pulse Pulse Pulse Pulse Resp BP 07/27/19 12:05 97.8 F 99 18 07/27/19 08:31 109 H 127 H 102 H 07/27/19 04:41 98 F 91 18 117/51 07/26/19 20:56 97.8 F 110 H 120 H 101 H 22 07/26/19 18:52 121 H 100/52 BP BP BP Pulse Ox 07/27/19 12:05 131/65 97 07/27/19 08:31 119/57 129/57 111/54 07/27/19 04:41 98 07/26/19 20:56 115/57 63/37 128/68 98 07/26/19 18:52 95 Intake and Output 07/27/19 07/27/19 07/27/19 06:59 14:59 22:59 Intake Total 600 240 Balance 600 240 Intake: Intake, IV Titration 600 Amount Sodium Chloride 0.9% 1, 600 000 ml @ 75 mls/hr IV . [id number] ONE Rx#:[id number] Oral 240 Other: Voiding Method Bedside Commode Bedside Commode # Voids 2 Weight 62 kg Patient examined chart reviewed. General examination: Patient awake alert no acute distress HEENT clear sclera. Poor oral dentition. Some oral thrush is noted. Neck: No cervical lymphadenopathy or carotid bruits present. Chest: Clear to auscultation throughout. Next line cardiac: Regular rate and rhythm no murmurs noted. Pulses radial and pedal pulses are equal and symmetric. Extremities: No edema noted in the hands or feet. No clubbing of the digits noted Skin: No rash bruising or petechia noted. Skin is very dry. Neurologic exam Mental status: Patient is awake. She is able to answer most questions appropriately. She is not oriented to the exact place but knows that she is in the hospital. She is oriented to her self and time of day. She is not oriented to month or year. Next line pupils: 2 mm minimally reactive to light but symmetric. Cranial nerves: Extraocular movements are full there's no nystagmus noted on vertical horizontal gaze. Face is symmetric. Cranial nerve VIII intact by clinical observation. Gag reflex is strong. Shoulder shrug symmetric. Tongue midline without fasciculations deviation. Motor examination: Patient moves all 4 extremities equally. There is mild increased tone noted in the upper extremities bilaterally with some mild rigidity noted on the right. Patient is able to keep both arms in front of her for 10 seconds no drift noted. Strength is overall -5 over [address] weakness due to poor conditioning. Patient is able to lift both legs off the bed and sustain it for 5 seconds. Coordination testing: This was difficult for the patient to follow task. There is no dysmetria noted but she has a hard time processing and executing. Next Deep tendon reflexes are trace throughout. Next Sensory examination: Patient reports she has intact sensation to light touch and pinprick. Gait examination deferred Results Computed tomography scan of the head reviewed. - Laboratory Findings CBC and BMP: 07/27/19 05:52 07/27/19 05:52 Abnormal Lab Findings: Abnormal Labs 07/26/19 07/26/19 07/26/19 11:27 11:27 11:27 WBC 17.1 H RBC 3.73 L Hgb Hct Neutrophils # 15.7 H Lymphocytes # 0.5 L APTT 21.3 L Potassium 3.2 L Chloride Carbon Dioxide 21 L BUN 24 H Creatinine 2.54 H Glucose 285 H POC Glucose (mg/dL) Calcium Total Protein 6.1 L Vitamin B12 Procalcitonin Urine Appearance Urine Protein Urine Blood Ur Leukocyte Esterase Ur Squamous Epith Cells Urine Bacteria Hyaline Casts Urine Mucus Urine Opiates Screen 07/26/19 07/26/19 07/26/19 12:13 17:12 18:41 WBC RBC Hgb Hct Neutrophils # Lymphocytes # APTT Potassium Chloride Carbon Dioxide BUN Creatinine Glucose POC Glucose (mg/dL) 164 H Calcium Total Protein Vitamin B12 Procalcitonin 0.22 H Urine Appearance Cloudy H Urine Protein Trace H Urine Blood Trace H Ur Leukocyte Esterase Small H Ur Squamous Epith Cells 31 H Urine Bacteria Rare H Hyaline Casts 167 H Urine Mucus Few H Urine Opiates Screen Detected H 07/26/19 07/27/19 07/27/19 20:23 01:54 05:52 WBC RBC Hgb Hct Neutrophils # Lymphocytes # APTT Potassium Chloride 115 H Carbon Dioxide 19 L BUN 18 H Creatinine 1.56 H Glucose POC Glucose (mg/dL) 111 H 105 H Calcium 7.5 L Total Protein Vitamin B12 1039.0 H Procalcitonin Urine Appearance Urine Protein Urine Blood Ur Leukocyte Esterase Ur Squamous Epith Cells Urine Bacteria Hyaline Casts Urine Mucus Urine Opiates Screen 07/27/19 07/27/19 05:52 17:14 WBC 12.6 H RBC 3.10 L Hgb 9.4 L D Hct 30.2 L Neutrophils # 10.7 H Lymphocytes # 0.7 L APTT Potassium Chloride Carbon Dioxide BUN Creatinine Glucose POC Glucose (mg/dL) 137 H Calcium Total Protein Vitamin B12 Procalcitonin Urine Appearance Urine Protein Urine Blood Ur Leukocyte Esterase Ur Squamous Epith Cells Urine Bacteria Hyaline Casts Urine Mucus Urine Opiates Screen Assessment and Plan Assessment: This is a 88-year-old female brought in from her assisted for hypotension altered mental status. Her blood pressure apparently normalized once admitted. Currently her mental status appears to be at her baseline. Of concern is ++ opiates on her urine drug screen. This patient is not on any opiates as far as we are aware of based on her home medication list. Potential explanations for her episodes of altered mental status and difficulty with gait could be related to the combination of both the Levaquin and Flagyl. Levaquin is highly lipophilic and neurotoxic. It is associated with nausea, vomiting dizziness and altered mental status. There is also increased risk for pseudomembranous colitis. Flagyl is well known for causing seizures, unsteadiness confusion and agitation and problems with coordination. The combination of opioids, Levaquin and Flagyl certainly could explain this unusual episode altered mental status with hypotension and balance instability. The patient's blood pressure medications also could factor in leading to orthostatic hypotension. Summary 1. Acute episode of hypotension altered mental status and coordination 2. Potential medications increasing the risk for these symptoms: Levaquin, Flagyl & opioids. 3. Concern for opioids in the urine drug screen and an 88-year-old female who is not on these medications by medication report. 4. Prior admissions for AMS, seizures PLAN 1. Discuss with team if possibly the patient could afford to be lowered on the Levaquin and Flagyl as the side effects can be also dose related. 2. Social work and case management to get involved to investigate further Y this patient is having access to opioids when this is not on her home medication list. 3. Continue with orthostatic blood pressure checks. 4. Continue with PT and OT evaluation. 5. No need at this time for any further EEGs. This patient had many EEGs on prior admissions and now more likely suspect her seizure threshold was lowered due to Flagyl. Thank you for this consultation. I'll be following the patient carefully throughout her admission. Further recommendations will be made as this case evolves. Edna Lopez MD Board certified in Neurology and Sleep medicine
[2019-07-27 20:27] VITALS: RESP 16
[2019-07-27 20:32] LABS: Glucose,Whole Blood 153 mg/dL (75-99)
[2019-07-27] MEDS: PRAVASTATIN SODIUM 40 MG TAB PO SCH (21:05)
[2019-07-27] MEDS: FAMOTIDINE 20 MG TAB PO SCH (21:05)
[2019-07-28 07:02] LABS: Glucose,Whole Blood 119 mg/dL (75-99)
[2019-07-28] MEDS: INSULIN ASPART (NovoLOG) 100 UNIT/ML VIAL SQ SCH ×2 (07:17→12:41)
[2019-07-28] MEDS: HEPARIN SODIUM,PORCINE 5,000 UNIT/ML 1 ML VIAL SQ SCH (08:38)
[2019-07-28] MEDS: METOPROLOL TARTRATE 12.5 MG TAB PO SCH (08:38)
--- NOTE | 2019-07-28 11:34 | P.DS ---
Providers Date of admission: 07/26/19 13:30 Expected date of discharge: 07/28/19 Attending physician: Tejal Perez MD Consults: 07/26/19 17:07 Consult Physician Routine Consulting Provider: Edna Lopez Consult Reason/Comments: AMS - previously seen by Neurology Do you want consulting provider notified?: Yes Primary care physician: Micki Villalobos - Discharge Diagnosis(es) (1) Encephalopathy acute Current Visit: Yes Status: Acute (2) Renal insufficiency Current Visit: Yes Status: Acute (3) SIRS (systemic inflammatory response syndrome) Current Visit: Yes Status: Acute Hospital Course: Patient 88-year-old female with history of frequent UTIs, diabetes type 2, hypertension was brought to the emergency room from the [facility] for confusion and hypotension. Patient was slow to respond she had no complaints in the emergency room she was noted to be hypoxic 88% on room air tachycardic with a heart rate of 131 with a leukocytosis 17.1 and INR 1.1. CMP showed potassium 3.2 bicarbonate of 21 via 24 creatinine 2.54 with a glucose of 285. EKG showed sinus tachycardia urinalysis shows small leukocyte esterase The patient's drug screen positive for opiates chest x-ray showed chronic changes patient was admitted for further workup and management. Patient was seen by neurology who noted patient was on Levaquin and Flagyl prior to admission which cleared contributor to her gait instability. Patient was changed from a Levaquin and Flagyl to Rocephin and hydration for acute renal failure improved her leukocytosis resolved. Patient urine cultures were negative so we will stop her antibiotics. Patient was seen by me today she was alert and oriented she was able to order her meals she appears to be at her baseline she is stable for discharge. Time spent in the day of discharge 35 minutes Assessment: Patient is alert and oriented she was in no apparent distress Patient Condition at Discharge: Good Plan - Discharge Summary Discharge Rx Participant: No New Discharge Prescriptions: No Action amLODIPine [Norvasc] 2.5 mg PO QAM hydrALAZINE HCL [Apresoline] 25 mg PO TID PRN PRN Reason: bp > 160/90 Furosemide [Lasix] 20 mg PO QAM Pioglitazone [Actos] 15 mg PO QAM Pravastatin Sodium [Pravachol] 40 mg PO HS Ondansetron HCl [Zofran] 8 mg PO TID PRN PRN Reason: Nausea And Vomiting Metoprolol Tartrate [Lopressor] 12.5 mg PO BID Famotidine [Pepcid] 20 mg PO HS Naproxen Sodium [Aleve] 440 mg PO ONCE PRN PRN Reason: shingles pain Cranberry Tablet (Unknown Strength) 2 tab PO BID Discharge Medication List Furosemide [Lasix] 20 mg PO QAM 06/16/19 [History] amLODIPine [Norvasc] 2.5 mg PO QAM 06/16/19 [History] hydrALAZINE HCL [Apresoline] 25 mg PO TID PRN 06/16/19 [History] Cranberry Tablet (Unknown Strength) 2 tab PO BID 07/26/19 [History] Famotidine [Pepcid] 20 mg PO HS 07/26/19 [History] Metoprolol Tartrate [Lopressor] 12.5 mg PO BID 07/26/19 [History] Naproxen Sodium [Aleve] 440 mg PO ONCE PRN 07/26/19 [History] Ondansetron HCl [Zofran] 8 mg PO TID PRN 07/26/19 [History] Pioglitazone [Actos] 15 mg PO QAM 07/26/19 [History] Pravastatin Sodium [Pravachol] 40 mg PO HS 07/26/19 [History] Follow up Appointment(s)/Referral(s): Micki Villalobos MD [Primary Care Provider] - 08/03/19 10:30 am (Telehealth appointment.) [facility] Visiting Nurse, [NON-STAFF] - 1 Week Patient Instructions/Handouts: Urinary Tract Infection in Women (DC) Activity/Diet/Wound Care/Special Instructions: activity as tolerated consistent carb diet Discharge Disposition: HOME WITH HOME HEALTH SERVICES
[2019-07-28 11:35] LABS: Glucose,Whole Blood 135 mg/dL (75-99)
[2019-07-28 11:54] VITALS: BP 129/69; PULSE 78; TEMP 97.6
--- NOTE | 2019-07-28 15:38 | CDI ---
Documentation Clarification Form Date: 07/28/2019 03:05:26 PM From: Lizbeth Hebert RN, CCDS Admit Date: 07/26/2019 01:30:00 PM Patient Name: Flory Sims Visit Number: [id number] Discharge Date: 07/28/2019 02:15:00 PM ATTENTION: The Clinical Documentation Specialists (CDI) and [facility] Coding Staff appreciate your assistance in clarifying documentation. Please respond to the clarification below the line at the bottom and electronically sign. The CDI & [facility] Coding staff will review the response and follow-up if needed. Please note: Queries are made part of the Legal Health Record. If you have any questions, please contact the author of this message via ITS. Dr. Cherry Johnston Altered Mental Status with Encephalopathy acute is documented in the H/P and sequent progress notes and discharge summary. Please provide further specificity of the acute encephalopathy. History/Risk Factors: Cancer, COPD, Diabetes Mellitus, Hypertension, Renal disease Clinical Indicators: 88-year-old female who present to ED on 07/25 with altered mental status and blood pressure was low 80's systolic per home health aid. In Ed she is confused but report no problems breathing, fever or nausea, vomiting or diarrhea. No recent trauma. Neurologic exam in ED: Patient is alert and orientated x2. Motor and sensory are intact. Normal speech. Labs: WBC 17.1, NA+ 138, BUN 24, CR 2.54; UA Ur Leukocyte Esterase small, UDS positive for opiates. Chest X Ray: Chronic changes and cardiomegaly CT Brain: No acute intracranial hemorrhage or midline shift. Mild to moderate diffuse cerebral atrophy, and more advanced small vessel ischemic change redemonstrated. 07/26 Neurology consult: acute episode of hypotension altered mental status and coordination, Potential medications increasing the risk for these symptoms: Levaquin, Flagyl & Opioids Treatment: Neurological Assessment Q shift per protocol Orthostatic blood pressure checks Seizure precautions per protocol In your professional opinion, please clarify the etiology of the Altered Mental Status, if known. Toxic Encephalopathy (due to drugs, other specify) Metabolic Encephalopathy (specify cause) Other condition (please specify) Unable to determine (Last Revision: June 2017) MTDD
--- NOTE | 2019-07-28 16:30 | CDI ---
Documentation Clarification Form Date: 07/28/2019 03:38:59 PM From: Lizbeth Hebert RN, CCDS Admit Date: 07/26/2019 01:30:00 PM Patient Name: Flory Sims Visit Number: [id number] Discharge Date: 07/28/2019 02:15:00 PM ATTENTION: The Clinical Documentation Specialists (CDI) and [facility] Coding Staff appreciate your assistance in clarifying documentation. Please respond to the clarification below the line at the bottom and electronically sign. The CDI & [facility] Coding staff will review the response and follow-up if needed. Please note: Queries are made part of the Legal Health Record. If you have any questions, please contact the author of this message via ITS. Dr. Cherry Johnston Renal insufficiency was documented in the discharge summary. The H&P has acute kidney injury on chronic kidney disease, further clarification is requested History/Risk Factors: Diabetes Mellitus, Hypertension, Renal disease 06/10/19 Patients BUN10 CR 0.88 GFR: 60 07/26/19 BUN 24, CR 2.54 GFR 16 Clinical Indicators: 88-year-old who was sent to ED on 07/25 for confusion and hypotension. She reports decreased appetite. She reports on 07/26 that she experience some lightheadedness, occasional dizziness with she is at home especially when going form a sitting to a standing position. She was orthostatic positive with sitting BP 115/57, standing BP 63/37, supine BP 128/68. 07/27/19 Current BUN 18 Cr 1.56 GFR 30 Renal ultrasound: No hydronephrosis Treatment: .9 Saline 1,000 mls/hr @75 mls/hr Monitor BUN, CR, Lytes Aviod Nephrotoxins Titration of antihypertensive medication In order to capture the severity of condition, please clarify if the condition signifies: Acute renal failure Cortical Necrosis Medullary Necrosis Tubular Necrosis Acute kidney injury Acute on chronic renal failure CKD Stage 1 GFR >90 CKD Stage 2 GFR 60-89 CKD Stage 3 GFR 30-59 CKD Stage 4 GFR 15-29 CKD Stage 5 GFR <15 Chronic renal failure/Chronic Kidney disease (CKD) please stage (if known): CKD Stage 1 GFR >90 CKD Stage 2 GFR 60-89 CKD Stage 3 GFR 30-59 CKD Stage 4 GFR 15-29 CKD Stage 5 GFR <15 Other, please specify Unable to determine (Last Revision: June 2017) MTDD
--- NOTE | 2019-07-28 17:09 | CDI ---
Documentation Clarification Form Date: 07/28/2019 04:30:00 PM From: Lizbeth Hebert RN, CCDS Admit Date: 07/26/2019 01:30:00 PM Patient Name: Flory Sims Visit Number: [id number] Discharge Date: 07/28/2019 02:15:00 PM ATTENTION: The Clinical Documentation Specialists (CDI) and [facility] Coding Staff appreciate your assistance in clarifying documentation. Please respond to the clarification below the line at the bottom and electronically sign. The CDI & [facility] Coding staff will review the response and follow-up if needed. Please note: Queries are made part of the Legal Health Record. If you have any questions, please contact the author of this message via ITS. Dr. Tejal Perez Protein Calorie Malnutrition has been documented in H/P and progress note on 07/26 and further specificity for severity is requested. History/Risk Factors: frequent UTI, Diabetes mellitus, Hypertension, chronic Kidney disease, COPD Clinical Indicators: 88year-old female who was sent in for confusion and hypotension. Se report a decreased appetite. nutrition assessment notes intake as poor Labs: BUN 24, Creatinine 2.54, WBC 17.1, UDS positive for Opiates, Total Protein 6.1, Albumin 3.5 Current BMI:23.5 Insufficient energy intake: Meeting 75 % of estimated nutritional needs per assessment Treatment: Dietary Consult: Yes, no nutrition diagnosis at this time Carbohydrate-modified diet monitor need for supplements Monitor PO In your professional opinion, can you please clarify if these findings signify one of the following conditions? Mild Protein-Calorie Malnutrition Moderate Protein-Calorie Malnutrition Severe Protein-Calorie Malnutrition Other condition, please specify Unable to determine (Last Revision: September 2018) mild MTDD
--- NOTE | 2019-07-28 17:38 | CDI ---
Documentation Clarification Form Date: 07/28/2019 05:09:49 PM From: Lizbeth Hebert RN, CCDS Admit Date: 07/26/2019 01:30:00 PM Patient Name: Flory Sims Visit Number: [id number] Discharge Date: 07/28/2019 02:15:00 PM ATTENTION: The Clinical Documentation Specialists (CDI) and [facility] Coding Staff appreciate your assistance in clarifying documentation. Please respond to the clarification below the line at the bottom and electronically sign. The CDI & [facility] Coding staff will review the response and follow-up if needed. Please note: Queries are made part of the Legal Health Record. If you have any questions, please contact the author of this message via ITS. Dr. Cherry Perez 07/25 H/P: Patient meets Sepsis criteria. Initial tachycardic Leukocytosis. with abnormal urinalysis Dr. Perez 07/26 progress note SIRS criteria Initial tachycardic. Leukocytosis, with abnormal urinalysis showing small leukocyte DC summary has SIRS, and further clarification is requested. History/Risk Factors: recurrent UTI, COPD, Hypertension, Diabetes Mellitus Clinical Indicators: 88-year-old female brought in for confusion and hypotension. She was noted to be hypoxic 88 % on room air tachycardic with heart rate of 131 with leukocytosis 17.1, Neutrophils 15.7; creatinine 2.54. UA small leukocytosis, Urine culture negative. 07/25 Lactic acid: 1.5 ./at 11:16 Vitals signs on admission: 117/105 131 18 97.8 88 % RA Blood culture: No Growth Treatment Rocephin 1 gm iv (07/25-07/27) .9 Saline 1,000 bolus, continue at 75 mls/hr In your professional opinion, can you please clarify if these findings signify one of the following conditions, whether the condition is POA, and cause, if known? Sepsis ruled out SIRS due to infection with Sepsis SIRS, not due to infection, with acute organ dysfunction Other, please specify Unable to determine SIRS Criteria (2 or more of the following may indicate SIRS): -Temperature < 96.8F(36C) or > 101.0F (38.3C) -Heart Rate > 90 bpm -Respiratory Rate > 20 breaths/min or PaCO2 < 32 mmHg -White Blood Cell Count > 12,000 or < 4,000 cells/mm3 or > 10% bands (Last Revision: December 2016) Sepsis POA MTDD
--- NOTE | 2019-08-18 08:24 | CDI ---
Documentation Clarification Form Date: 07/28/2019 03:38:00 PM From: Lizbeth Hebert RN, CCDS Admit Date: 07/26/2019 01:30:00 PM Patient Name: Flory Sims Visit Number: [id number] Discharge Date: 07/28/2019 02:15:00 PM ATTENTION: The Clinical Documentation Specialists (CDI) and [facility] Coding Staff appreciate your assistance in clarifying documentation. Please respond to the clarification below the line at the bottom and electronically sign. The CDI & [facility] Coding staff will review the response and follow-up if needed. Please note: Queries are made part of the Legal Health Record. If you have any questions, please contact the author of this message via ITS. Dr. Cherry Johnston Renal insufficiency was documented in the discharge summary. The H&P has acute kidney injury on chronic kidney disease, further clarification is requested History/Risk Factors: Diabetes Mellitus, Hypertension, Renal disease 06/10/19 Patients BUN10 CR 0.88 GFR: 60 07/26/19 BUN 24, CR 2.54 GFR 16 Clinical Indicators: 88-year-old who was sent to ED on 07/25 for confusion and hypotension. She report decreased appetite. She reports on 07/26 that she experience some lightheadedness, occasional dizziness with she is at home especially when going form a sitting to a standing position. She was orthostatic positive with sitting BP 115/57, standing BP 63/37, supine BP 128/68. 07/27/19 Current BUN 18 Cr 1.56 GFR 30 Renal ultrasound: No hydronephrosis Treatment: .9 Saline 1,000 mls/hr @75 mls/hr Monitor BUN, CR, Lytes Aviod Nephrotoxins Titration of antihypertensive medication In order to capture the severity of condition, please clarify if the condition signifies: Acute renal failure, Please specify etiology (if known): Cortical Necrosis Medullary Necrosis Tubular Necrosis Acute kidney injury Acute on chronic renal failure CKD Stage 1 GFR >90 CKD Stage 2 GFR 60-89 CKD Stage 3 GFR 30-59 CKD Stage 4 GFR 15-29 CKD Stage 5 GFR <15 Chronic renal failure/Chronic Kidney disease (CKD) please stage (if known): CKD Stage 1 GFR >90 CKD Stage 2 GFR 60-89 CKD Stage 3 GFR 30-59 CKD Stage 4 GFR 15-29 CKD Stage 5 GFR <15 Other, please specify Unable to determine (Last Revision: June 2017) Acute on chronic kidney disease CKD stage 3 Acute renal failure secondary to tubular necrosis MTDD
== END 2019-07-28 14:15 | disposition home health service (06) | DRG 871 ==
LOC: EC 11:11 → 4SSUR 13:14 → OBSVTOIN 13:30 → 5NMEDONC 13:49
PROVIDERS: ADMIT Family Medicine; ATTEND Family Medicine
DX: A41.9 Sepsis, unspecified organism (principal); G93.41 Metabolic encephalopathy; N17.0 Acute kidney failure with tubular necrosis; E44.1 Mild protein-calorie malnutrition; E11.65 Type 2 diabetes mellitus with hyperglycemia; N18.3 Chronic kidney disease, stage 3 (moderate); J44.9 Chronic obstructive pulmonary disease, unspecified; E11.22 Type 2 diabetes mellitus with diabetic chronic kidney disease; I12.9 Hypertensive chronic kidney disease with stage 1 through stage 4 chronic kidney disease, or unspecified chronic kidney disease; E87.6 Hypokalemia; E86.0 Dehydration; E78.5 Hyperlipidemia, unspecified; Z68.23 Body mass index [BMI] 23.0-23.9, adult; Z11.59 Encounter for screening for other viral diseases; I49.3 Ventricular premature depolarization; I95.1 Orthostatic hypotension; R09.02 Hypoxemia; M19.90 Unspecified osteoarthritis, unspecified site; R26.89 Other abnormalities of gait and mobility; E07.9 Disorder of thyroid, unspecified; Z79.84 Long term (current) use of oral hypoglycemic drugs; Z79.899 Other long term (current) drug therapy; Z87.440 Personal history of urinary (tract) infections; Z90.710 Acquired absence of both cervix and uterus; Z85.9 Personal history of malignant neoplasm, unspecified
CPT/HCPCS: 36415; 70450; 71046; 76705; 76770; 80048; 80053; 80306; 81001; 82140; 82607; 82746; 83605; 84145; 84443; 84484; 85025; 85610; 85730; 86780; 87040; 87077; 87086; 87186; 87635; 93005; 96360; 99285

== ENCOUNTER → 2019-09-28 | Outpatient (CLI) | payer MEDICARE ==
[2019-09-28 12:01] LABS: Basophils # (A) 0.1 k/uL (0-0.2); Basophils % (A) 1 %; Eosinophils # (A) 0.4 k/uL (0-0.7); Eosinophils % (A) 5 %; HCT 40.5 % (34.0-46.0); Lymphocytes # (A) 0.9 k/uL (1.0-4.8); Lymphocytes % (A) 11 %; MCH 32.6 pg (25.0-35.0); MCHC 32.9 g/dL (31.0-37.0); Mean Platelet Volume 7.9; Monocytes # (A) 0.6 k/uL (0-1.0); Monocytes % (A) 7 %; Neutrophils # (A) 6.2 k/uL (1.3-7.7); Neutrophils % (A) 74 %; Platelet Count 230 k/uL (150-450); RBC 4.09 m/uL (3.80-5.40); RDW 13.4 % (11.5-15.5); WBC 8.3 k/uL (3.8-10.6)
[2019-09-28 12:08] LABS: HGB 13.3 gm/dL (11.4-16.0)
[2019-09-28 17:05] LABS: % Iron Saturation 21.18 (12.00-45.00); ALT 12 U/L (8-44); AST 19 U/L (13-35); African American GFR (CKD) 22.6 (60.0-200.0); Albumin/Globulin Ratio 1.62 (1.60-3.17); Alkaline Phosphatase 44 U/L (41-126); BUN/Creat Ratio 11.82 Ratio (12.00-20.00); Calcium 9.2 mg/dL (8.7-10.3); Carbon Dioxide 33.3 mmol/L (21.6-31.8); Chloride 93 mmol/L (96-109); Chol/HDL Ratio 3.68; Cholesterol 210 mg/dL (0-200); Globulin 2.1 g/dL (1.6-3.3); Glucose 122 mg/dL (70-110); Iron 61 ug/dL (50-170); LDL Cholesterol,Calculated 122.4 mg/dL (0.0-131.0); Non-African American GFR(CKD) 19.5 (60.0-200.0); Potassium 2.8 mmol/L (3.5-5.5); Sodium 137 mmol/L (135-145); Total Bilirubin 1.3 mg/dL (0.3-1.2); Total Iron Binding Capacity 288 ug/dL (228-460); Total Protein 5.5 g/dL (6.2-8.2)
[2019-09-28 17:12] LABS: Ferritin 35.3 ng/mL (10.0-291.0)
[2019-09-28 17:15] LABS: Folate, Serum 6.4 ng/mL
[2019-09-28 17:54] LABS: Vitamin B12 >4000.0 pg/mL (211-911)
[2019-09-28 21:31] LABS: Hemoglobin A1C 6.7 % (4.0-6.0)
== END | disposition home or self-care (01) ==
LOC: LABWHC1 11:21
PROVIDERS: ATTEND Nurse Practitioner Family
DX: I12.9 Hypertensive chronic kidney disease with stage 1 through stage 4 chronic kidney disease, or unspecified chronic kidney disease (principal); N18.3 Chronic kidney disease, stage 3 (moderate); D63.1 Anemia in chronic kidney disease; E11.69 Type 2 diabetes mellitus with other specified complication; E78.49 Other hyperlipidemia
CPT/HCPCS: 36415; 80053; 80061; 82306; 82607; 82728; 82746; 83036; 83540; 83550; 84443; 85025

== ENCOUNTER 2019-11-06 13:53 | Inpatient (IN) | payer MEDICARE ==
[2019-11-06] MEDS ORDERED: SODIUM CHLORIDE 0.9% 500 ML 500 ML IV STA (14:08)
[2019-11-06] MEDS: SODIUM CHLORIDE 0.9% 1,000 ML IV STA ×2 (14:16→18:34)
--- NOTE | 2019-11-06 14:16 | ED ---
Weakness HPI - General Source: patient, EMS, RN notes reviewed Mode of arrival: EMS Limitations: no limitations - History of Present Illness MD Complaint: generalized weakness, difficulty walking <Brendan Shah - Last Filed: 11/06/19 15:12> <Alma Benoit - Last Filed: 11/09/19 22:46> - General Chief complaint: Weakness Stated complaint: Fall, Weakness Time Seen by Provider: 11/06/19 13:53 - History of Present Illness Initial comments: This is a 89-year-old female with history of multiple medical issues including UTI and sepsis diabetes chronic renal disease hypertension was brought in by EMS from her assisted living facility because of frequent falls and progressive weakness over last couple days. Patient herself denies any pain she apparently and sustained abrasions to her extremities from the falls. She was able ably without assistance. No head neck back pain reported no focal deficits reported. (Brendan Shah) - Related Data Home Medications Medication Instructions Recorded Confirmed Metoprolol Tartrate [Lopressor] 12.5 mg PO QAM 07/26/19 11/06/19 Aspirin [Schoolcraft Aspirin EC] 81 mg PO DAILY 11/06/19 11/06/19 Mirtazapine [Remeron] 15 mg PO QAM 11/06/19 11/06/19 Ondansetron HCl [Zofran] 4 mg PO QAM 11/06/19 11/06/19 Previous Rx's Medication Instructions Recorded amLODIPine [Norvasc] 2.5 mg PO QAM tab 11/09/19 Allergies Allergy/AdvReac Type Severity Reaction Status Date / Time No Known Allergies Allergy Verified 11/06/19 20:03 Review of Systems ROS Other: All systems not noted in ROS Statement are negative. <Brendan Shah - Last Filed: 11/06/19 15:12> ROS Other: All systems not noted in ROS Statement are negative. <Alma Benoit - Last Filed: 11/09/19 22:46> ROS Statement: Those systems with pertinent positive or pertinent negative responses have been documented in the HPI. Past Medical History Past Medical History: Cancer, Heart Failure, COPD, Diabetes Mellitus, Hyperlipidemia, Hypertension, Osteoarthritis (OA), Renal Disease, Thyroid Disorder Additional Past Medical History / Comment(s): questionable Seizures, History of Any Multi-Drug Resistant Organisms: VRE Date of last positivie culture/infection: 07/28/19 MDRO Source:: URINE VRE Past Surgical History: Hysterectomy Additional Past Surgical History / Comment(s): Back surgery Past Anesthesia/Blood Transfusion Reactions: Unable to Obtain Past Psychological History: Unable to Obtain Smoking Status: Former smoker Past Alcohol Use History: None Reported Past Drug Use History: None Reported - Past Family History Father History Unknown: Yes Mother History Unknown: Yes <Brendan Shah - Last Filed: 11/06/19 15:12> General Exam Limitations: no limitations General appearance: alert, in no apparent distress Head exam: Present: atraumatic, normocephalic, normal inspection Eye exam: Present: normal appearance, PERRL, EOMI. Absent: scleral icterus, conjunctival injection, periorbital swelling ENT exam: Present: mucous membranes dry Neck exam: Present: normal inspection. Absent: tenderness, meningismus, lymphadenopathy Respiratory exam: Present: decreased breath sounds. Absent: respiratory distr ess, wheezes, rales, rhonchi, stridor Cardiovascular Exam: Present: regular rate, normal rhythm, normal heart sounds. Absent: systolic murmur, diastolic murmur, rubs, gallop, clicks GI/Abdominal exam: Present: soft, normal bowel sounds. Absent: distended, tenderness, guarding, rebound, rigid Extremities exam: Present: full ROM, normal capillary refill, other (Contusion noted to the left dorsal lateral hand no active bleeding no step-off or crepitation skin abrasion seen to the lower extremities especially on the left tenderness no apparent sensory motor or vascular deficits). Absent: tenderness, pedal edema, joint swelling, calf tenderness Back exam: Present: normal inspection Neurological exam: Present: alert, oriented X3, CN II-XII intact Psychiatric exam: Present: normal affect, normal mood Skin exam: Present: warm, dry, normal color, other (As noted above). Absent: rash <Brendan Shah - Last Filed: 11/06/19 15:12> - General Exam Comments Initial Comments: This is a well-developed asthenic appearing female who is awake and alert though lethargic and a poor historian (Brendan Shah) Course <Brendan Shah - Last Filed: 11/06/19 15:12> Vital Signs 11/06/19 11/06/19 11/06/19 13:53 16:11 17:03 Temperature 97.6 F 97.8 F Pulse Rate 70 72 78 Respiratory 18 18 18 Rate Blood Pressure 129/56 134/55 139/65 O2 Sat by Pulse 97 98 100 Oximetry 11/06/19 18:32 Temperature Pulse Rate 79 Respiratory 18 Rate Blood Pressure 110/65 O2 Sat by Pulse 98 Oximetry - Reevaluation(s) Reevaluation #1: 11/06/19 15:00 Work information the patient she isn't and the treatment with Bactrim for UTI also she was started on antidepressants taken 2 doses thus far. So information from her son that her current speech and how she answers questions slowly since he started having seizures earlier in the year. (Brendan Shah) Reevaluation #2: 11/06/19 15:12 Workup is in progress the patient's care will be endorsed to Dr. Benoit at our shift change (Brendan Shah) EKG Findings - EKG Results: EKG: interpreted by ERMD, sinus rhythm (First-degree AV block ventricular rate 69 OR interval 224 QRS 74 QT since QTC 432/467 evidence of septal infarct of undetermined age) <Brendan Shah - Last Filed: 11/06/19 15:12> Medical Decision Making - Lab Data Result diagrams: 11/09/19 05:52 11/09/19 05:52 <Alma Benoit - Last Filed: 11/09/19 22:46> - Medical Decision Making The patient was signed out to me at shift change. I performed a physical exam on the patient. I did review her laboratory studies. Hemoglobin low at 9.8. Sodium 125. Potassium 3.4. Creatinine 2.47. Urinalysis demonstrates many bacteria. CT of the patient's brain demonstrates a subacute anterior left parietal lobe infarct. Chest x-ray demonstrates mild interstitial prominence with trace pleural effusions. The patient received a 500 mL bolus. She will be placed on 75 mL per hour. Patient will be admitted to this on physicians. Discussed case with Dr. Martin who accepted admission. Patient awaiting a bed on the floor (Alma Benoit) - Lab Data Lab Results 11/06/19 11/06/19 11/06/19 Range/Units 14:08 14:08 14:08 WBC 8.7 (3.8-10.6) k/uL RBC 3.34 L (3.80-5.40) m/uL Hgb 9.8 L D (11.4-16.0) gm/dL Hct 30.7 L (34.0-46.0) % MCV 92.1 D (80.0-100.0) fL MCH 29.4 (25.0-35.0) pg MCHC 31.9 (31.0-37.0) g/dL RDW 14.1 (11.5-15.5) % Plt Count 222 (150-450) k/uL Neutrophils % 92 % Lymphocytes % 5 % Monocytes % 2 % Eosinophils % 1 % Basophils % 0 % Neutrophils # 8.0 H (1.3-7.7) k/uL Lymphocytes # 0.4 L (1.0-4.8) k/uL Monocytes # 0.2 (0-1.0) k/uL Eosinophils # 0.1 (0-0.7) k/uL Basophils # 0.0 (0-0.2) k/uL PT 11.1 (9.0-12.0) sec INR 1.1 (<1.2) Sodium 125 L (137-145) mmol/L Potassium 3.4 L (3.5-5.1) mmol/L Chloride 90 L (98-107) mmol/L Carbon Dioxide 26 (22-30) mmol/L Anion Gap 9 mmol/L BUN 32 H (7-17) mg/dL Creatinine 2.47 H (0.52-1.04) mg/dL Est GFR (CKD-EPI)AfAm 20 (>60 ml/min/1.73 sqM) Est GFR (CKD-EPI)NonAf 17 (>60 ml/min/1.73 sqM) Glucose 84 (74-99) mg/dL Estimated Ave Glu mg/dL Hemoglobin A1c (4.0-6.0) % Plasma Lactic Acid Alejandro (0.7-2.0) mmol/L Calcium 8.3 L (8.4-10.2) mg/dL Magnesium 1.7 (1.6-2.3) mg/dL Total Bilirubin 0.6 (0.2-1.3) mg/dL AST 31 (14-36) U/L ALT 16 (4-34) U/L Alkaline Phosphatase 43 (38-126) U/L Troponin I (0.000-0.034) ng/mL NT-Pro-B Natriuret Pep pg/mL Total Protein 5.2 L (6.3-8.2) g/dL Albumin 2.8 L (3.5-5.0) g/dL TSH (0.465-4.680) mIU/L Urine Color Urine Appearance (Clear) Urine pH (5.0-8.0) Ur Specific Temple (1.001-1.035) Urine Protein (Negative) Urine Glucose (UA) (Negative) Urine Ketones (Negative) Urine Blood (Negative) Urine Nitrite (Negative) Urine Bilirubin (Negative) Urine Urobilinogen (<2.0) mg/dL Ur Leukocyte Esterase (Negative) Urine RBC (0-5) /hpf Urine WBC (0-5) /hpf Uric Acid Crystals (None) /hpf Urine Bacteria (None) /hpf 11/06/19 11/06/19 11/06/19 Range/Units 14:08 14:08 14:08 WBC (3.8-10.6) k/uL RBC (3.80-5.40) m/uL Hgb (11.4-16.0) gm/dL Hct (34.0-46.0) % MCV (80.0-100.0) fL MCH (25.0-35.0) pg MCHC (31.0-37.0) g/dL RDW (11.5-15.5) % Plt Count (150-450) k/uL Neutrophils % % Lymphocytes % % Monocytes % % Eosinophils % % Basophils % % Neutrophils # (1.3-7.7) k/uL Lymphocytes # (1.0-4.8) k/uL Monocytes # (0-1.0) k/uL Eosinophils # (0-0.7) k/uL Basophils # (0-0.2) k/uL PT (9.0-12.0) sec INR (<1.2) Sodium (137-145) mmol/L Potassium (3.5-5.1) mmol/L Chloride (98-107) mmol/L Carbon Dioxide (22-30) mmol/L Anion Gap mmol/L BUN (7-17) mg/dL Creatinine (0.52-1.04) mg/dL Est GFR (CKD-EPI)AfAm (>60 ml/min/1.73 sqM) Est GFR (CKD-EPI)NonAf (>60 ml/min/1.73 sqM) Glucose (74-99) mg/dL Estimated Ave Glu mg/dL Hemoglobin A1c (4.0-6.0) % Plasma Lactic Acid Alejandro 1.3 (0.7-2.0) mmol/L Calcium (8.4-10.2) mg/dL Magnesium (1.6-2.3) mg/dL Total Bilirubin (0.2-1.3) mg/dL AST (14-36) U/L ALT (4-34) U/L Alkaline Phosphatase (38-126) U/L Troponin I 0.026 (0.000-0.034) ng/mL NT-Pro-B Natriuret Pep 1380 pg/mL Total Protein (6.3-8.2) g/dL Albumin (3.5-5.0) g/dL TSH (0.465-4.680) mIU/L Urine Color Urine Appearance (Clear) Urine pH (5.0-8.0) Ur Specific Temple (1.001-1.035) Urine Protein (Negative) Urine Glucose (UA) (Negative) Urine Ketones (Negative) Urine Blood (Negative) Urine Nitrite (Negative) Urine Bilirubin (Negative) Urine Urobilinogen (<2.0) mg/dL Ur Leukocyte Esterase (Negative) Urine RBC (0-5) /hpf Urine WBC (0-5) /hpf Uric Acid Crystals (None) /hpf Urine Bacteria (None) /hpf 11/06/19 11/06/19 11/06/19 Range/Units 14:08 14:08 14:15 WBC (3.8-10.6) k/uL RBC (3.80-5.40) m/uL Hgb (11.4-16.0) gm/dL Hct (34.0-46.0) % MCV (80.0-100.0) fL MCH (25.0-35.0) pg MCHC (31.0-37.0) g/dL RDW (11.5-15.5) % Plt Count (150-450) k/uL Neutrophils % % Lymphocytes % % Monocytes % % Eosinophils % % Basophils % % Neutrophils # (1.3-7.7) k/uL Lymphocytes # (1.0-4.8) k/uL Monocytes # (0-1.0) k/uL Eosinophils # (0-0.7) k/uL Basophils # (0-0.2) k/uL PT (9.0-12.0) sec INR (<1.2) Sodium (137-145) mmol/L Potassium (3.5-5.1) mmol/L Chloride (98-107) mmol/L Carbon Dioxide (22-30) mmol/L Anion Gap mmol/L BUN (7-17) mg/dL Creatinine (0.52-1.04) mg/dL Est GFR (CKD-EPI)AfAm (>60 ml/min/1.73 sqM) Est GFR (CKD-EPI)NonAf (>60 ml/min/1.73 sqM) Glucose (74-99) mg/dL Estimated Ave Glu mg/dL 128 Hemoglobin A1c 6.1 H (4.0-6.0) % Plasma Lactic Acid Alejandro (0.7-2.0) mmol/L Calcium (8.4-10.2) mg/dL Magnesium (1.6-2.3) mg/dL Total Bilirubin (0.2-1.3) mg/dL AST (14-36) U/L ALT (4-34) U/L Alkaline Phosphatase (38-126) U/L Troponin I (0.000-0.034) ng/mL NT-Pro-B Natriuret Pep pg/mL Total Protein (6.3-8.2) g/dL Albumin (3.5-5.0) g/dL TSH 1.940 (0.465-4.680) mIU/L Urine Color Yellow Urine Appearance Cloudy H (Clear) Urine pH 5.5 (5.0-8.0) Ur Specific Temple 1.010 (1.001-1.035) Urine Protein Negative (Negative) Urine Glucose (UA) Negative (Negative) Urine Ketones Negative (Negative) Urine Blood Negative (Negative) Urine Nitrite Negative (Negative) Urine Bilirubin Negative (Negative) Urine Urobilinogen <2.0 (<2.0) mg/dL Ur Leukocyte Esterase Negative (Negative) Urine RBC <1 (0-5) /hpf Urine WBC 1 (0-5) /hpf Uric Acid Crystals Few H (None) /hpf Urine Bacteria Many H (None) /hpf Disposition <Brendan Shah - Last Filed: 11/06/19 15:12> Is patient prescribed a controlled substance at d/c from ED?: No Decision to Admit Reason: Admit from EC Decision Date: 11/06/19 Decision Time: 16:28 <Alma Benoit - Last Filed: 11/09/19 22:46> Clinical Impression: Altered mental status, Bacteria in urine, Hyponatremia, Falls, CVA (cerebral vascular accident), Encephalopathy acute, Renal insufficiency, Anemia Disposition: ADMITTED IP TO THIS HOSP Condition: Poor
[2019-11-06] MEDS ORDERED: BACITRACIN OINT 1 EACH PACKET TOPICAL ONE (14:19)
[2019-11-06 14:51] LABS: Appearance,Urine Cloudy (Clear); Bacteria,Urine Many /hpf; Bilirubin,Urine Negative (Negative); Blood,Urine Negative (Negative); Color,Urine Yellow; Glucose,Urine (UA) Negative (Negative); Ketones,Urine Negative (Negative); Leukocyte Esterase,Urine Negative (Negative); Nitrite,Urine Negative (Negative); PH, Urine 5.5 (5.0-8.0); Protein,Urine Negative (Negative); RBC,Urine <1 /hpf (0-5); Uric Acid Crystals,Urine Few /hpf; Urobilinogen,Urine <2.0 mg/dL (<2.0); WBC,Urine 1 /hpf (0-5)
--- NOTE | 2019-11-06 15:00 | CT ---
EXAMINATION TYPE: CT brain wo con DATE OF EXAM: 11/06/2019 COMPARISON: 07/26/2019 HISTORY: 89-year-old female MENTAL status, confusion TECHNIQUE: Examination was done in axial plane without intravenous contrast. Coronal and sagittal r econstructions performed. CT DLP: 1129.4 mGycm Automated exposure control for dose reduction was used. FINDINGS: Redemonstrated 1.1 cm extra-axial area of rounded ossification/calcification superior left frontal re gion suggestive of a meningioma. Mild generalized supratentorial volume loss redemonstrated with similar mild prominence of the ventri cular system. Confluent white matter hypodensities in both cerebral hemispheres are unchanged. However, new as cortical and subcortical hypodensity anterior left parietal lobe. No evidence for acute intracranial hemorrhage, mass effect, midline shift, or extra-axial fluid colle ction. History calcification in the carotid siphons. No effacement of basal subarachnoid cisterns are herniation. Paranasal sinuses and mastoid air cells well pneumatized. IMPRESSION: 1. Findings suspicious for a new (as compared to 07/26/2019) but subacute anterior left parietal lobe infarct. The degree of cortical/subcortical hypodensity favors greater than 6 hours in duration. Furt her clinical correlation recommended. No acute intracranial hemorrhage or midline shift.
--- NOTE | 2019-11-06 15:02 | XR ---
EXAMINATION TYPE: XR chest 2V DATE OF EXAM: 11/06/2019 COMPARISON: 07/26/2019 HISTORY: 89-year-old female with weakness TECHNIQUE: AP and lateral views FINDINGS: Heart mildly enlarged. Prominent skinfold projecting over the periphery of the left hemithorax. Unabl e to exclude small and trace effusions on the lateral view. Mild interstitial prominence. IMPRESSION: Heart appears mildly enlarged now. There is mild interstitial prominence and new trace to small effus ions on the lateral view. Correlate for mild CHF.
[2019-11-06 15:22] LABS: Basophils % (A) 0 %; Eosinophils # (A) 0.1 k/uL (0-0.7); Eosinophils % (A) 1 %; HCT 30.7 % (34.0-46.0); Lymphocytes # (A) 0.4 k/uL (1.0-4.8); Lymphocytes % (A) 5 %; MCH 29.4 pg (25.0-35.0); MCHC 31.9 g/dL (31.0-37.0); Mean Platelet Volume 7.6; Monocytes # (A) 0.2 k/uL (0-1.0); Monocytes % (A) 2 %; Neutrophils % (A) 92 %; Platelet Count 222 k/uL (150-450); RBC 3.34 m/uL (3.80-5.40); RDW 14.1 % (11.5-15.5); WBC 8.7 k/uL (3.8-10.6)
[2019-11-06 15:29] LABS: HGB 9.8 gm/dL (11.4-16.0)
[2019-11-06 15:30] LABS: MCV 92.1 fL (80.0-100.0)
[2019-11-06 15:34] LABS: Albumin 2.8 g/dL (3.5-5.0); Calcium 8.3 mg/dL (8.4-10.2); INR 1.1 (<1.2); Magnesium 1.7 mg/dL (1.6-2.3); Potassium 3.4 mmol/L (3.5-5.1); Prothrombin Time 11.1 sec (9.0-12.0); Total Bilirubin 0.6 mg/dL (0.2-1.3); Total Protein 5.2 g/dL (6.3-8.2)
[2019-11-06] MEDS ORDERED: NALOXONE 0.4 MG/ML 1 ML VIAL IV PRN (16:28)
[2019-11-06] MEDS ORDERED: hydrALAZINE HCL 25 MG TAB PO PRN (17:32)
[2019-11-06] MEDS ORDERED: ONDANSETRON 4 MG/2 ML VIAL IVP PRN (17:34)
[2019-11-06] MEDS ORDERED: ACETAMINOPHEN TAB 325 MG TAB PO PRN (17:34)
[2019-11-06] MEDS ORDERED: ASPIRIN 325 MG TAB PO STA (17:53)
--- NOTE | 2019-11-06 17:57 | P.HPIM ---
History of Present Illness H&P Date: 11/06/19 Chief Complaint: Frequent falls This is a 89-year-old female with complex past medical history noted below significant for underlying cognitive impairment and hypertension who presented to the emergency room from a local assisted living facility with frequent falls and altered mental status. Patient is awake and alert. She is only oriented to herself and to the place. She appeared restless and was a very poor historian. Most of the history was obtained by her son at bedside. He informed me that for the past few months she has been declining and her mentation has not been great. He also told me that she is fidgety most of the time but over the past week she had multiple falls at the assisted living facility. She was recently diagnosed with a UTI and was started on Bactrim by the staff at the assisted living facility. Patient herself denies any complaints or concerns. She was evaluated in the ER and did not have any neurological focal deficit. She was noted to have a sodium of 125 with worsening creatinine level compared to last visit. Also noted to have a suspected subacute stroke on computed tomography scan of the head. She was evaluated by ER staff physician and was not a candidate for TPA. She'll be admitted to the hospital for further management. Review of Systems Unable to review other systems given altered mental status Past Medical History Past Medical History: Cancer, Heart Failure, COPD, Diabetes Mellitus, Hyperlipidemia, Hypertension, Osteoarthritis (OA), Renal Disease, Thyroid Disorder Additional Past Medical History / Comment(s): questionable Seizures, History of Any Multi-Drug Resistant Organisms: VRE Date of last positivie culture/infection: 07/28/19 MDRO Source:: URINE VRE Past Surgical History: Hysterectomy Additional Past Surgical History / Comment(s): Back surgery Past Anesthesia/Blood Transfusion Reactions: Unable to Obtain Past Psychological History: Unable to Obtain Smoking Status: Former smoker Past Alcohol Use History: None Reported Past Drug Use History: None Reported - Past Family History Father History Unknown: Yes Mother History Unknown: Yes Medications and Allergies Home Medications Medication Instructions Recorded Confirmed Type Furosemide [Lasix] 20 mg PO QAM 06/16/19 07/26/19 History amLODIPine [Norvasc] 2.5 mg PO QAM 06/16/19 07/26/19 History hydrALAZINE HCL [Apresoline] 25 mg PO TID PRN 06/16/19 07/26/19 History Cranberry Tablet (Unknown Strength) 2 tab PO BID 07/26/19 07/26/19 History Famotidine [Pepcid] 20 mg PO HS 07/26/19 07/26/19 History Metoprolol Tartrate [Lopressor] 12.5 mg PO BID 07/26/19 07/26/19 History Naproxen Sodium [Aleve] 440 mg PO ONCE PRN 07/26/19 07/26/19 History Ondansetron HCl [Zofran] 8 mg PO TID PRN 07/26/19 07/26/19 History Pioglitazone [Actos] 15 mg PO QAM 07/26/19 07/26/19 History Pravastatin Sodium [Pravachol] 40 mg PO HS 07/26/19 07/26/19 History Allergies Allergy/AdvReac Type Severity Reaction Status Date / Time No Known Allergies Allergy Verified 11/06/19 14:03 Physical Exam Vitals: Vital Signs Temp Pulse Resp BP Pulse Ox 11/06/19 17:03 97.8 F 78 18 139/65 100 11/06/19 16:11 72 18 134/55 98 11/06/19 13:53 97.6 F 70 18 129/56 97 Intake and Output 11/06/19 11/06/19 11/06/19 06:59 14:59 22:59 Other: Weight 52.027 kg General: The patient is awake and alert, in no distress Eye: there is normal conjunctiva bilaterally. Neck: The neck is supple, there is no JVD. Cardiovascular: Normal S1-S2, no S3-S4, no murmurs. Respiratory: Lungs clear to auscultation bilaterally Gastrointestinal: Abdomen is soft, nontender Musculoskeletal: There is no pedal edema. Neurological:. Speech is normal. Skin: Skin is warm and dry Results CBC & Chem 7: 11/06/19 14:08 11/06/19 14:08 Labs: Abnormal Lab Results - Last 24 Hours (Table) 11/06/19 11/06/19 11/06/19 Range/Units 14:08 14:08 14:15 RBC 3.34 L (3.80-5.40) m/uL Hgb 9.8 L D (11.4-16.0) gm/dL Hct 30.7 L (34.0-46.0) % Neutrophils # 8.0 H (1.3-7.7) k/uL Lymphocytes # 0.4 L (1.0-4.8) k/uL Sodium 125 L (137-145) mmol/L Potassium 3.4 L (3.5-5.1) mmol/L Chloride 90 L (98-107) mmol/L BUN 32 H (7-17) mg/dL Creatinine 2.47 H (0.52-1.04) mg/dL Calcium 8.3 L (8.4-10.2) mg/dL Total Protein 5.2 L (6.3-8.2) g/dL Albumin 2.8 L (3.5-5.0) g/dL Urine Appearance Cloudy H (Clear) Uric Acid Crystals Few H (None) /hpf Urine Bacteria Many H (None) /hpf Assessment and Plan Assessment: 1. Suspected subacute stroke involving the anterior left parietal lobe, with no clear neurological focal deficits. Neurology will be consulted. Continue full dose aspirin daily and Lipitor daily. Consider MRI of the brain in the morning. Patient had a negative MRA of the neck in June 2019. Also had a carotid Doppler in June showing no hemodynamically significant stenosis. Echocardiogram showed preserved ejection fraction with no intracardiac source for possible stroke. 2. Hypovolemic hyponatremia: Most likely secondary to poor by mouth intake and Lasix use. Hold Lasix and continue IV fluid hydration with normal saline at 75 mL per hour. Avoid overcorrection. Monitor BMP every 4 hours. 3. Acute on chronic kidney disease, most likely secondary to Lasix use as well as Bactrim. Hold nephrotoxics. Continue fluid hydration. Repeat lab work in the morning.. 4. Essential hypertension: Blood pressure within acceptable range. Continue home dose of amlodipine 5. History of recurrent UTIs, just finished course of Bactrim. Urinalysis in the ER appeared normal 6. Underlying dementia/cognitive impairment 7. Type 2 diabetes, hold oral agent and continue sliding scale insulin 8. CODE STATUS: Discussed with the patient's son at bedside. Patient is DO NOT RESUSCITATE/DO NOT INTUBATE
[2019-11-06 21:10] LABS: Glucose,Whole Blood 83 mg/dL (75-99)
[2019-11-06] MEDS: ATORVASTATIN 80 MG TAB PO SCH (21:20)
[2019-11-06] MEDS: HEPARIN SODIUM,PORCINE 5,000 UNIT/ML 1 ML VIAL SQ SCH (21:20)
[2019-11-06 23:10] LABS: Hemoglobin A1C 6.1 % (4.0-6.0)
[2019-11-06] MEDS ORDERED: LORazepam 1 MG TAB PO STA (23:13)
[2019-11-07 06:35] LABS: Glucose,Whole Blood 68 mg/dL (75-99)
[2019-11-07] MEDS ORDERED: DEXTROSE 50% SYRINGE 50 ML IVP ONE (06:46)
[2019-11-07 07:00] LABS: Glucose,Whole Blood 142 mg/dL (75-99)
[2019-11-07 08:31] LABS: Basophils % (A) 0 %; Eosinophils # (A) 0.1 k/uL (0-0.7); Eosinophils % (A) 1 %; HCT 26.7 % (34.0-46.0); HGB 8.6 gm/dL (11.4-16.0); Lymphocytes # (A) 0.5 k/uL (1.0-4.8); Lymphocytes % (A) 7 %; MCH 29.8 pg (25.0-35.0); MCHC 32.4 g/dL (31.0-37.0); Mean Platelet Volume 7.7; Monocytes # (A) 0.2 k/uL (0-1.0); Monocytes % (A) 3 %; Neutrophils # (A) 6.8 k/uL (1.3-7.7); Neutrophils % (A) 88 %; Platelet Count 228 k/uL (150-450); RDW 14.4 % (11.5-15.5); WBC 7.7 k/uL (3.8-10.6)
[2019-11-07 08:49] LABS: Calcium 7.9 mg/dL (8.4-10.2); Potassium 3.4 mmol/L (3.5-5.1)
[2019-11-07] MEDS: ASPIRIN 325 MG TAB PO SCH (09:15)
[2019-11-07] MEDS: METOPROLOL TARTRATE 25 MG TAB PO SCH (09:15)
[2019-11-07] MEDS: MIRTAZAPINE 15 MG TAB PO SCH (09:15)
[2019-11-07] MEDS: ATORVASTATIN 80 MG TAB PO SCH (09:15)
[2019-11-07] MEDS: HEPARIN SODIUM,PORCINE 5,000 UNIT/ML 1 ML VIAL SQ SCH ×2 (09:15→20:08)
[2019-11-07] MEDS: amLODIPine 2.5 MG TAB PO SCH (09:15)
--- NOTE | 2019-11-07 11:03 | P.PN ---
Subjective Progress Note Date: 11/07/19 Unfortunately BMP was not done overnight every 4 hours as ordered. Repeat sodium level this morning is 128. No acute events overnight reported by nursing staff. Objective - Vital Signs Vital signs: Vital Signs Temp 98.3 F 11/07/19 00:00 Pulse 71 11/07/19 03:32 Resp 20 11/07/19 03:32 BP 115/58 11/07/19 03:30 Pulse Ox 98 11/07/19 03:30 Intake & Output 11/06/19 11/07/19 11/07/19 18:59 06:59 18:59 Weight 52.027 kg 52.6 kg Other: Voiding Method Diaper # Voids 2 - Exam General: The patient is awake and alert, she appeared restless and uncooperative with the exam. Eye: there is normal conjunctiva bilaterally. Neck: The neck is supple, there is no JVD. Cardiovascular: Normal S1-S2, no S3-S4, no murmurs. Respiratory: Lungs clear to auscultation bilaterally Gastrointestinal: Abdomen is soft, nontender Musculoskeletal: There is no pedal edema. . Skin: Skin is warm and dry - Labs CBC & Chem 7: 11/07/19 07:46 11/07/19 08:03 Labs: Abnormal Lab Results - Last 24 Hours (Table) 11/06/19 11/06/19 11/06/19 Range/Units 14:08 14:08 14:08 RBC 3.34 L (3.80-5.40) m/uL Hgb 9.8 L D (11.4-16.0) gm/dL Hct 30.7 L (34.0-46.0) % Neutrophils # 8.0 H (1.3-7.7) k/uL Lymphocytes # 0.4 L (1.0-4.8) k/uL Sodium 125 L (137-145) mmol/L Potassium 3.4 L (3.5-5.1) mmol/L Chloride 90 L (98-107) mmol/L BUN 32 H (7-17) mg/dL Creatinine 2.47 H (0.52-1.04) mg/dL Glucose (74-99) mg/dL POC Glucose (mg/dL) (75-99) mg/dL Hemoglobin A1c 6.1 H (4.0-6.0) % Calcium 8.3 L (8.4-10.2) mg/dL Total Protein 5.2 L (6.3-8.2) g/dL Albumin 2.8 L (3.5-5.0) g/dL Triglycerides (<150) mg/dL Urine Appearance (Clear) Uric Acid Crystals (None) /hpf Urine Bacteria (None) /hpf 11/06/19 11/07/19 11/07/19 Range/Units 14:15 06:33 06:58 RBC (3.80-5.40) m/uL Hgb (11.4-16.0) gm/dL Hct (34.0-46.0) % Neutrophils # (1.3-7.7) k/uL Lymphocytes # (1.0-4.8) k/uL Sodium (137-145) mmol/L Potassium (3.5-5.1) mmol/L Chloride (98-107) mmol/L BUN (7-17) mg/dL Creatinine (0.52-1.04) mg/dL Glucose (74-99) mg/dL POC Glucose (mg/dL) 68 L 142 H (75-99) mg/dL Hemoglobin A1c (4.0-6.0) % Calcium (8.4-10.2) mg/dL Total Protein (6.3-8.2) g/dL Albumin (3.5-5.0) g/dL Triglycerides (<150) mg/dL Urine Appearance Cloudy H (Clear) Uric Acid Crystals Few H (None) /hpf Urine Bacteria Many H (None) /hpf 11/07/19 11/07/19 Range/Units 07:46 08:03 RBC 2.90 L (3.80-5.40) m/uL Hgb 8.6 L (11.4-16.0) gm/dL Hct 26.7 L (34.0-46.0) % Neutrophils # (1.3-7.7) k/uL Lymphocytes # 0.5 L (1.0-4.8) k/uL Sodium 128 L (137-145) mmol/L Potassium 3.4 L (3.5-5.1) mmol/L Chloride 93 L (98-107) mmol/L BUN 33 H (7-17) mg/dL Creatinine 2.53 H (0.52-1.04) mg/dL Glucose 68 L (74-99) mg/dL POC Glucose (mg/dL) (75-99) mg/dL Hemoglobin A1c (4.0-6.0) % Calcium 7.9 L (8.4-10.2) mg/dL Total Protein (6.3-8.2) g/dL Albumin (3.5-5.0) g/dL Triglycerides 153 H (<150) mg/dL Urine Appearance (Clear) Uric Acid Crystals (None) /hpf Urine Bacteria (None) /hpf Assessment and Plan Assessment: 1. Suspected subacute stroke involving the anterior left parietal lobe, with no clear neurological focal deficits. Neurology consulted. Continue full dose aspirin and Lipitor daily. Consider MRI of the brain awaiting neurology evaluation. Patient had a negative MRA of the neck in June 2019. Also had a carotid Doppler in June showing no hemodynamically significant stenosis. Echocardiogram in June showed preserved ejection fraction with no intracardiac source for possible stroke. 2. Hypovolemic hyponatremia: Most likely secondary to poor by mouth intake and Lasix use. Hold Lasix and continue IV fluid hydration with normal saline at 75 mL per hour. Avoid overcorrection. Monitor BMP every 4 hours. 3. Acute on chronic kidney disease, most likely secondary to Lasix use as well as Bactrim. Hold nephrotoxics. Continue fluid hydration. Repeat lab work in the morning.. 4. Essential hypertension: Blood pressure within acceptable range. Continue home dose of amlodipine 5. History of recurrent UTIs, just finished course of Bactrim. Urinalysis in the ER appeared normal 6. Underlying dementia/cognitive impairment 7. Type 2 diabetes, hold oral agent and continue sliding scale insulin 8. CODE STATUS: Discussed with the patient's son at bedside. Patient is DO NOT RESUSCITATE/DO NOT INTUBATE We'll discuss palliative care with the patient son after neurology evaluation.
[2019-11-07 12:23] LABS: Glucose,Whole Blood 81 mg/dL (75-99)
[2019-11-07] MEDS: INSULIN ASPART (NovoLOG) 100 UNIT/ML VIAL SQ SCH ×3 (12:55→20:57)
[2019-11-07 16:58] LABS: Glucose,Whole Blood 83 mg/dL (75-99)
[2019-11-07 17:22] LABS: Potassium 3.6 mmol/L (3.5-5.1)
[2019-11-07] MEDS: SODIUM CHLORIDE 0.9% 1,000 ML IV SCH (19:50)
[2019-11-07 20:26] LABS: Glucose,Whole Blood 80 mg/dL (75-99)
[2019-11-07 23:46] LABS: Calcium 7.9 mg/dL (8.4-10.2); Potassium 3.5 mmol/L (3.5-5.1)
[2019-11-08] MEDS: SODIUM CHLORIDE 0.9% 1,000 ML IV SCH ×2 (02:21→21:34)
[2019-11-08 04:22] VITALS: RESP 16
[2019-11-08 06:12] LABS: Glucose,Whole Blood 73 mg/dL (75-99)
[2019-11-08] MEDS: INSULIN ASPART (NovoLOG) 100 UNIT/ML VIAL SQ SCH ×4 (06:29→21:36)
[2019-11-08 07:28] LABS: Potassium 3.7 mmol/L (3.5-5.1)
--- NOTE | 2019-11-08 08:01 | P.CNNES ---
History of Present Illness Consult date: 11/08/19 Requesting physician: Marley Frank Reason for Consult: stroke History of Present Illness: This is an 89-year-old female with the medical history of hypertension and underlying cognitive impairment, possible seizure disorder, diabetes, hyperlipidemia who resides in assisted living facility and that presented to the emergency department on 11/06/2019 because of frequent falls and altered mental status. The history was obtained from medical records. I attempted to contact the patient's son via phone but no response. It's mentioned that she was recently diagnosed with urinary tract infection and she was started on the Bactrim. I spoke with the primary team and that he stated that he spoke with the son and he notified him that the patient has been deteriorating last couple weeks. She's also been having frequent falls the at the assisted nursing facility. Patient's initial vitals on presentation is blood pressure of 129/56 heart rate of 70, respiratory of 18, the temperature of 97.6 Fahrenheit oral, pulse ox 97 at room air. Upon presentation the patient had that CT of the head and it was reported as f inding suspicious for a new (as compared to the 07/26/2019) but subacute anterior left parietal lobe infarct. The degree of cortical subcortical hypodensity fevers greater than 6 hours in duration. No acute intracranial hemorrhage or midline shift. I did review the image and I do feel like this is subacute and not acute and the one I compared also to previous images myself this looked more new compared to the previous image. Patient did not get TPA since that she is outside the window. EKG was reported as sinus rhythm with first degree AV block. Septal infarct age undetermined. Ventricular rate is 69. Chest x-ray was reported as heart mildly enlarged. There is mild interstitial prominence and new trace to small effusion on the lateral view at. Correlate for mild CHF. The patient the initial sodium on presentation was 125. And her latest sodium on 11/07/2019 was 127. Upon reviewing the medical record the patient's sodium has never been in the 120s prior to this the presentation prior to that was in the baseline 137 to 144. BUN/creatinine on presentation was 32 over 2.47. Of note the patient the was seen by our neurology team for altered mental status as she had 3 routine EEGs and in our medical record at [facility] and that EEGs were were in June 2019 and nonverbal showed any epileptiform or seizure activity. On 06/17/2019 was reported as some slowing over the right hemisphere. Otherwise the other 2 were normal EEGs. She was seen by Dr. Gonzalez one of the neuro-hospitalist at [facility] on 06/24/2019 and in his note that it's mentioned that the the patient has had multiple admissions to the hospital for episode of unresponsiveness. He states that possible seizure were considered. She was initially placed on Keppra after she was diagnosed with possible seizure disorder but was noted to have significant behavioral problems. She was switched to Vimpat 100 mg twice a day on the last at admission prior to him seen her. In his note he mentions that she has recurrent episodes of left hemiparesis possible TIA differential also includes seizure with post ictal Arthur's. And recommends to continue the Vimpat 100 mg twice a day at. Upon reviewing medical records the patient was discharged on Vimpat but per the primary team and he stated that the patient follow up with neurologist as an outpatient and he discontinued the Vimpat. Review of Systems Review of system is limited because of the patient condition but the prior positive and negative as per HPI. Past Medical History Past Medical History: Cancer, Heart Failure, COPD, Diabetes Mellitus, Hyperlipidemia, Hypertension, Osteoarthritis (OA), Renal Disease, Thyroid Disorder Additional Past Medical History / Comment(s): questionable Seizures, History of Any Multi-Drug Resistant Organisms: VRE Date of last positivie culture/infection: 07/28/19 MDRO Source:: URINE VRE Past Surgical History: Hysterectomy Additional Past Surgical History / Comment(s): Back surgery Past Anesthesia/Blood Transfusion Reactions: Unable to Obtain Past Psychological History: Unable to Obtain Smoking Status: Never smoker Past Alcohol Use History: None Reported Past Drug Use History: None Reported - Past Family History Father History Unknown: Yes Mother History Unknown: Yes Medications and Allergies Home Medications Medication Instructions Recorded Confirmed Type Furosemide [Lasix] 10 mg PO QAM 06/16/19 11/06/19 History Metoprolol Tartrate [Lopressor] 12.5 mg PO QAM 07/26/19 11/06/19 History Pioglitazone [Actos] 15 mg PO QAM 07/26/19 11/06/19 History Aspirin [Ritchie Aspirin EC] 81 mg PO DAILY 11/06/19 11/06/19 History Cranberry 15,000mg 1 tab PO DAILY 11/06/19 11/06/19 History Cyanocobalamin (Vitamin B-12) 2,500 mcg PO DAILY 11/06/19 11/06/19 History [Vitamin B-12] Mirtazapine [Remeron] 15 mg PO QAM 11/06/19 11/06/19 History Ondansetron HCl [Zofran] 4 mg PO QAM 11/06/19 11/06/19 History Potassium Chloride 20 meq PO DAILY 11/06/19 11/06/19 History Pravastatin Sodium [Pravachol] 20 mg PO DAILY 11/06/19 11/06/19 History Sulfamethox-Tmp 800-160Mg [Bactrim 1 tab PO BID 11/06/19 11/06/19 History DS 800-160 mg] Allergies Allergy/AdvReac Type Severity Reaction Status Date / Time No Known Allergies Allergy Verified 11/06/19 20:03 Physical Examination - Vital Signs Vital Signs: Vital Signs Temp Pulse Resp BP Pulse Ox 11/08/19 04:00 98.3 F 92 16 97/49 92 L 11/08/19 00:00 97.8 F 80 18 132/62 93 L 11/07/19 20:00 98 F 95 16 127/55 92 L 11/07/19 16:00 16 11/07/19 12:00 73 16 112/54 91 L 11/07/19 08:00 79 16 127/60 91 L Intake and Output 11/07/19 11/08/19 11/08/19 22:59 06:59 14:59 Other: Voiding Method Diaper Diaper # Voids 1 1 # Bowel Movements 1 Weight 45 kg GENERAL: The patient is lying and did not seem to be in distress. CHEST: The heart rate is regular rate rhythm. No murmurs to auscultation. No carotid bruit bilaterally. LUNG: Clear to auscultation bilaterally no wheezing noted throughout. Not labored breathing. ABDOMEN/GI: Bowel sounds present in all 4 quadrants. No tenderness to palpation throughout. NEUROLOGICAL: Limited because of patient condition. Higher mental function: The patient is drowsy but briefly opens eyes to verbal or painful stimuli. She is not verberally responsive or following commands. All she is saying is "what" or "yes". Cranial nerves: The pupils are round, equal (3mm) and reactive to light. and accommodation. No facial weakness appreciated. Could assess rest of cranial nerves because of patient condition and lack of cooperation. Motor: Gait is defered. Was withdrawing to painful stiimuli in all extremities and no appreciable focality noted. Cerebellum: Unable to asses. Sensation: Intact to painful stimuli. Reflexes (right/left): 2+ throughout except at ankles were trace bilaterally. Plantars are upgoing bilaterally. Results PT of 11.1. INR of 1.1. Urinalysis at the color was yellow it appeared cloudy the nitrates was negative leukocyte esterase were negative. White blood cell was 1 year bacteria there is many. Also the hemoglobin on presentation was 9.8 on repeated was 8.6 upon reviewing the medical record her hemoglobin has not been this low prior to that. Calcium on presentation was 8.3 repeated is 7.9. Last the vitamin B12 on the record and was more than 4000 on 09/28/2019. The folate was 6.4 also on the same date. TSH is 1.94. Lipid profile the triglyceride is 153. Cholesterol is 156. LDL is 66. HDL is 59. Hemoglobin A1c is 6.1 AST of 31. ALTs of 16. - Laboratory Findings CBC and BMP: 11/07/19 07:46 11/08/19 06:56 Abnormal Lab Findings: Abnormal Labs 11/06/19 11/06/19 11/06/19 14:08 14:08 14:08 RBC 3.34 L Hgb 9.8 L D Hct 30.7 L Neutrophils # 8.0 H Lymphocytes # 0.4 L Sodium 125 L Potassium 3.4 L Chloride 90 L BUN 32 H Creatinine 2.47 H Glucose POC Glucose (mg/dL) Hemoglobin A1c 6.1 H Calcium 8.3 L Total Protein 5.2 L Albumin 2.8 L Triglycerides Urine Appearance Uric Acid Crystals Urine Bacteria 11/06/19 11/07/19 11/07/19 14:15 06:33 06:58 RBC Hgb Hct Neutrophils # Lymphocytes # Sodium Potassium Chloride BUN Creatinine Glucose POC Glucose (mg/dL) 68 L 142 H Hemoglobin A1c Calcium Total Protein Albumin Triglycerides Urine Appearance Cloudy H Uric Acid Crystals Few H Urine Bacteria Many H 11/07/19 11/07/19 11/07/19 07:46 08:03 16:37 RBC 2.90 L Hgb 8.6 L Hct 26.7 L Neutrophils # Lymphocytes # 0.5 L Sodium 128 L 127 L Potassium 3.4 L Chloride 93 L 95 L BUN 33 H 36 H Creatinine 2.53 H 2.40 H Glucose 68 L 71 L POC Glucose (mg/dL) Hemoglobin A1c Calcium 7.9 L 8.0 L Total Protein Albumin Triglycerides 153 H Urine Appearance Uric Acid Crystals Urine Bacteria 11/07/19 11/08/19 23:26 06:11 RBC Hgb Hct Neutrophils # Lymphocytes # Sodium 128 L Potassium Chloride 96 L BUN 35 H Creatinine 2.48 H Glucose 70 L POC Glucose (mg/dL) 73 L Hemoglobin A1c Calcium 7.9 L Total Protein Albumin Triglycerides Urine Appearance Uric Acid Crystals Urine Bacteria Assessment and Plan Assessment: This is an 89-year-old female with the medical history of hypertension and underlying cognitive impairment, possible seizure disorder, diabetes, hyperlipidemia who resides in assisted living facility and that presented to the emergency department on 11/06/2019 because of frequent falls and altered mental status. CT head showed subacute left parietal stroke. Subacute stroke (left parietal) Toxic-metabolic Encephalopathy (Hyponatremia, acute kidney injury on chronic kidney insufficiency, hypocalcemia) Hyponatremia Possible seizure disorder (per medical records) EDUARDO on CKI HTN Plan: Regarding her stroke the CT of the head that shows a left subacute parietal which is new compared to her previous image. There is no need to get MRI the brain as since the its already seen on the CT of the head. I ordered carotid duplex. I also ordered the 2-D echocardiogram. Currently she is on aspirin 325 mg and Lipitor 80 mg. I decrease the Lipitor from 80 mg to 40 mg. TSH is 1.94. Lipid profile the triglyceride is 153. Cholesterol is 156. LDL is 66. HDL is 59. Hemoglobin A1c is 6.1 PT OT is consulted. Regarding her possible seizure disorder that was reported in previous reports her previous EEGs noted, showed that at any seizure or any apple plum d ischarges. Per Dr. Gonzalez's note he mentioned that that he recommended the patient to be on Vimpat 100 mg twice a day. He mentions that that she was on Keppra but the was having side effects from it was having behavioral issues. Per primary team he stated that according to patient's son, patient followed-up with Neurologist as outpatient and he discontinued her on the medication. I attempted to contact the patient's son but no response. Upon getting more information from the son then they'll decide whether to start her on a seizure medication or not in the meantime since she's been off of seizure medication I'll hold off. I ordered routine EEG since patient is encephalopathic to rule out active seizure. Calcium on presentation was 8.3 repeated is 7.9. Regarding the patient's hypocalcemia I ordered ionized calcium. Regarding the patient's hyponatremia recommend treating it slowly. Last the vitamin B12 on the record and was more than 4000 on 09/28/2019. The folate was 6.4 also on the same date. There is no need to repeat it. We'll defer the electrolyte imbalance correction down to the primary team. Again I attempted to contact the patient's son but no response, I'll reattempt contacting him. The plan was discussed with the primary team. Thank you for the consult. Rolly Perry M.D. Neuro-hospitalist. Time with Patient: Greater than 30
--- NOTE | 2019-11-08 08:54 | US ---
EXAMINATION TYPE: US carotid duplex BILAT DATE OF EXAM: 11/08/2019 COMPARISON: US carotid 06/11/19 CLINICAL HISTORY: stroke. EXAM MEASUREMENTS: RIGHT: Peak Systolic Velocity (PSV) cm/sec ----- Right CCA: 69.0 ----- Right ICA: 62.5 ----- Right ECA: 65.1 ICA/CCA ratio: 0.9 RIGHT: End Diastole cm/sec ----- Right CCA: 11.6 ----- Right ICA: 7.7 ----- Right ECA: 0.0 LEFT: Peak Systolic Velocity (PSV) cm/sec ----- Left CCA: 56.0 ----- Left ICA: 70.3 ----- Left ECA: 70.3 ICA/CCA ratio: 1.3 LEFT: End Diastole cm/sec ----- Left CCA: 6.4 ----- Left ICA: 9.0 ----- Left ECA: 3.8 VERTEBRALS (direction of flow): Right Vertebral: Antegrade Left Vertebral: Antegrade Rhythm: Normal Atherosclerotic changes as seen previously IMPRESSION: No hemodynamically significant stenosis bilaterally. Criteria for Assigning % of Stenosis / Diameter reduction (Estimation based on the indirect measurements of the internal carotid artery velocities (ICA PSV). 1. Normal (no stenosis)=ICA PSV < 125 cm/s: ratio < 2.0: ICA EDV<40 cm/s. 2. Less than 50% stenosis=ICA PSV < 125 cm/s: ratio < 2.0: ICA EDV<40 cm/s. 3. 50 to 69% stenosis=ICA PSV of 125 to 230 cm/s: ration 2.0 ? 4.0: ICA EDV 40-100 cm/s. 4. Greater than 70% stenosis to near occlusion= ICA PSV > 230 cm/s: ratio > 4.0: ICA EDV > 100 cm/s. 5. Near occlusion= ICA PSV velocities may be low or undetectable: variable ratio and ICA EDV. 6. Total occlusion=unable to detect flow.
[2019-11-08] MEDS: ASPIRIN 325 MG TAB PO SCH (08:55)
[2019-11-08] MEDS: METOPROLOL TARTRATE 25 MG TAB PO SCH (08:55)
[2019-11-08] MEDS: ATORVASTATIN 40 MG TAB PO SCH (08:55)
[2019-11-08] MEDS: amLODIPine 2.5 MG TAB PO SCH (08:55)
[2019-11-08] MEDS: HEPARIN SODIUM,PORCINE 5,000 UNIT/ML 1 ML VIAL SQ SCH ×2 (08:56→21:36)
[2019-11-08] MEDS: MIRTAZAPINE 15 MG TAB PO SCH (08:56)
--- NOTE | 2019-11-08 10:59 | P.PN ---
Subjective Progress Note Date: 11/08/19 Patient is lethargic but easily arousable. No acute events overnight reported by nursing staff. Objective - Vital Signs Vital signs: Vital Signs Temp 98.3 F 11/08/19 04:00 Pulse 75 11/08/19 08:00 Resp 16 11/08/19 08:00 BP 94/50 11/08/19 08:00 Pulse Ox 100 11/08/19 08:00 Intake & Output 11/07/19 11/08/19 11/08/19 18:59 06:59 18:59 Intake Total 125 Balance 125 Weight 45 kg Intake: Oral 125 Other: Voiding Method Diaper Diaper Diaper # Voids 1 1 1 # Bowel Movements 1 - Exam General: The patient is awake and alert, she appeared restless and uncooperative with the exam. Eye: there is normal conjunctiva bilaterally. Neck: The neck is supple, there is no JVD. Cardiovascular: Normal S1-S2, no S3-S4, no murmurs. Respiratory: Lungs clear to auscultation bilaterally Gastrointestinal: Abdomen is soft, nontender Musculoskeletal: There is no pedal edema. . Skin: Skin is warm and dry - Labs CBC & Chem 7: 11/07/19 07:46 11/08/19 06:56 Labs: Abnormal Lab Results - Last 24 Hours (Table) 11/07/19 11/07/19 11/08/19 Range/Units 16:37 23:26 06:11 Sodium 127 L 128 L (137-145) mmol/L Chloride 95 L 96 L (98-107) mmol/L BUN 36 H 35 H (7-17) mg/dL Creatinine 2.40 H 2.48 H (0.52-1.04) mg/dL Glucose 71 L 70 L (74-99) mg/dL POC Glucose (mg/dL) 73 L (75-99) mg/dL Calcium 8.0 L 7.9 L (8.4-10.2) mg/dL 11/08/19 Range/Units 06:56 Sodium 131 L (137-145) mmol/L Chloride (98-107) mmol/L BUN (7-17) mg/dL Creatinine (0.52-1.04) mg/dL Glucose (74-99) mg/dL POC Glucose (mg/dL) (75-99) mg/dL Calcium (8.4-10.2) mg/dL Microbiology - Last 24 Hours (Table) 11/06/19 14:12 Blood Culture - Preliminary Blood No Growth after 24 hours Assessment and Plan Assessment: 1. Suspected subacute stroke involving the anterior left parietal lobe, with no clear neurological focal deficits. Neurology consulted, appreciate recommendations.. Continue full dose aspirin and Lipitor daily. No need for MRI at this time per neurology. Patient had a negative MRA of the neck in June 2019. Also had a carotid Doppler in June showing no hemodynamically significant stenosis. Echocardiogram in June showed preserved ejection fraction with no intracardiac source for possible stroke. repeat echocardiogram and Doppler ordered by neurology. 2. Hypovolemic hyponatremia: Most likely secondary to poor by mouth intake and Lasix use. Hold Lasix and continue IV fluid hydration with normal saline at 75 mL per hour. Sodium level improving gradually 3. Acute on chronic kidney disease, most likely secondary to Lasix use as well as Bactrim. Hold nephrotoxics. Continue fluid hydration. Repeat lab work in the morning.. 4. Essential hypertension: Blood pressure within acceptable range. Continue home dose of amlodipine 5. History of recurrent UTIs, just finished course of Bactrim. Urinalysis in the ER appeared normal 6. Underlying dementia/cognitive impairment 7. Type 2 diabetes, hold oral agent and continue sliding scale insulin 8. Acute toxo metabolic encephalopathy, secondary to a KI, hyponatremia, and subacute stroke. 9. CODE STATUS: Discussed with the patient's son at bedside. Patient is DO NOT RESUSCITATE/DO NOT INTUBATE We'll discuss palliative care with the patient son as he was considering hospice care for his mother
[2019-11-08 11:15] LABS: Glucose,Whole Blood 80 mg/dL (75-99)
--- NOTE | 2019-11-08 13:45 | ECHOF ---
Referral Reason:stroke MEASUREMENTS -------- HEIGHT: 160.0 cm WEIGHT: 44.9 kg BP: IVSd: 1.3 cm (0.6 - 1.1) LVIDd: 3.0 cm (3.9 - 5.3) LVPWd: 1.5 cm (0.6 - 1.1) EDV(Teich): 34 ml IVSs: 1.8 cm LVIDs: 1.4 cm LVPWs: 1.6 cm %IVS Thck: 35 % ESV(Teich): 5 ml EF(Teich): 84 % %FS: 52 % SV(Teich): 29 ml LALs A4C: 4.7 cm LAAs A4C: 15.3 cm LAESV A-L A4C: 42 ml LAESV MOD A4C: 40 ml LALs A2C: 4.7 cm LAAs A2C: 13.1 cm LAESV A-L A2C: 31 ml LAESV MOD A2C: 30 ml LAESV(A-L): 37 ml LAESV Index (A-L): 25.37 ml/m Ao Diam: 3.1 cm (2.0 - 3.7) LA Diam: 3.6 cm (2.7 - 3.8) AV Cusp: 2.3 cm (1.5 - 2.6) EPSS: 0.2 cm MV E Edmundo: 0.80 m/s MV DecT: 172 ms MV Dec Dimmit: 4.7 m/s MV A Edmundo: 1.21 m/s MV E/A Ratio: 0.66 MV PHT: 50 ms MR Vmax: 1.49 m/s MR maxP.89 mmHg AV Vmax: 1.56 m/s AV maxP.71 mmHg AR Vmax: 2.20 m/s AR maxP.42 mmHg AR PHT: 371 ms AR Dec Time: 1280 ms AR Dec Dimmit: 1.7 m/s PV Vmax: 1.12 m/s PV maxP.98 mmHg TR Vmax: 2.66 m/s TR maxP.26 mmHg RAP: 5.00 mmHg RVSP: 33.26 mmHg MV EF SLOPE: 83.15 mm/s (70 - 150) MV EXCURSION: 18.05 mm (> 18.000) RV S Prime: 0.13 m/s TAPSE: 27.42 mm FINDINGS -------- This was a technically good study. The left ventricular size is normal. There is moderate concentric left ventricular hypertrophy. O verall left ventricular systolic function is normal with, an EF between 55 - 60 %. Normal LAP Grade 1 Diastolic Dysfunction. The right ventricle is normal in size. The right ventricular systolic function is normal. The left atrial size is normal. Normal LA size by volume 22+/-6 ml/m2. The right atrial size is normal. Aneurysmal Interatrial septum. Aortic valve is trileaflet and is mildly thickened. Trace amount of aortic regurgitation. The mitral valve is normal. The mitral valve leaflets are mildly thickened. There is trace mitral regurgitation. The tricuspid valve appears structurally normal. Mild tricuspid regurgitation present. Right vent ricular systolic pressure is normal at < 35 mmHg. There is no pulmonic regurgitation present. The aortic root size is normal. IVC Not well visulized. There is no pericardial effusion. CONCLUSIONS -------- 1. The left ventricular size is normal. 2. There is moderate concentric left ventricular hypertrophy. 3. Overall left ventricular systolic function is normal with, an EF between 55 - 60 %. 4. Normal LAP Grade 1 Diastolic Dysfunction. 5. Aneurysmal Interatrial septum. 6. Aortic valve is trileaflet and is mildly thickened. 7. Trace amount of aortic regurgitation. 8. The mitral valve leaflets are mildly thickened. 9. There is trace mitral regurgitation. 10. Mild tricuspid regurgitation present. MARBLE MACHINE OPERATOR: Tiffany Galeana RDCS
--- NOTE | 2019-11-08 14:56 | EEG ---
ELECTROENCEPHALOGRAM REPORT DATE OF SERVICE: 11/08/2019 CLINICAL HISTORY: This is an 89-year-old lady with possible history of seizure, diabetes, who presented to the Emergency Department on 11/07/2019 for altered mental status and recurrent falls. This video EEG was obtained to evaluate for seizure and epileptiform activity. Relevant medication: Not on centrally acting medication. EEG TYPE: A routine 21 channel EEG was performed with video using the 10-20 electrode placement system. DESCRIPTION: Wakefulness and drowsiness are obtained during the study. During wakefulness, there is a posterior dominant rhythm of low to moderate voltage that is well modulated of 6-7 hertz activity that is poorly sustained. During drowsiness, there is slowing and attenuation of the background activity. There is no sleep to architecture as seen during the study. There is significant myogenic artifact over the bilateral temporal regions that was seen mostly throughout the study. Interictal and ictal is none. Activation procedure: Photic stimulation did not evoke a posterior driving response. Hyperventilation was not performed because of the patient clinical history. EEG DIAGNOSIS: This is an abnormal EEG during awake and drowsy, due to background slowing. CLINICAL INTERPRETATION: This is an abnormal routine awake and drowsy EEG suggestive of mild encephalopathy of unspecified etiology. There is no focal slowing. There are no interictal or seizure activity seen during the study. There is significant myogenic artifact that was seen over the bilateral temporal region throughout this study. Clinical correlation is recommended. ALLEGRA / ADRIANA: [id number] / RASHIDA
[2019-11-08 17:00] LABS: Glucose,Whole Blood 79 mg/dL (75-99)
[2019-11-08 20:37] LABS: Glucose,Whole Blood 71 mg/dL (75-99)
[2019-11-09 04:56] VITALS: TEMP 98.6
[2019-11-09 06:08] LABS: Glucose,Whole Blood 66 mg/dL (75-99)
[2019-11-09 06:36] LABS: Glucose,Whole Blood 65 mg/dL (75-99)
[2019-11-09] MEDS ORDERED: DEXTROSE 50% SYRINGE 50 ML IVP ONE (06:37)
[2019-11-09] MEDS: SODIUM CHLORIDE 0.9% 1,000 ML IV SCH (06:42)
[2019-11-09 06:49] LABS: Basophils % (A) 0 %; Eosinophils # (A) 0.2 k/uL (0-0.7); Eosinophils % (A) 3 %; HCT 24.4 % (34.0-46.0); HGB 7.7 gm/dL (11.4-16.0); Lymphocytes # (A) 0.5 k/uL (1.0-4.8); Lymphocytes % (A) 7 %; MCH 29.5 pg (25.0-35.0); MCHC 31.4 g/dL (31.0-37.0); Mean Platelet Volume 7.8; Monocytes # (A) 0.2 k/uL (0-1.0); Monocytes % (A) 3 %; Neutrophils # (A) 5.8 k/uL (1.3-7.7); Neutrophils % (A) 86 %; Platelet Count 163 k/uL (150-450); RDW 14.6 % (11.5-15.5); WBC 6.8 k/uL (3.8-10.6)
[2019-11-09] MEDS: INSULIN ASPART (NovoLOG) 100 UNIT/ML VIAL SQ SCH (06:49)
[2019-11-09 06:57] LABS: Glucose,Whole Blood 167 mg/dL (75-99)
[2019-11-09 07:09] LABS: Calcium 7.6 mg/dL (8.4-10.2); Potassium 3.6 mmol/L (3.5-5.1)
[2019-11-09 07:49] VITALS: BMI 19.5
[2019-11-09] MEDS: amLODIPine 2.5 MG TAB PO SCH (08:11)
[2019-11-09] MEDS: ATORVASTATIN 40 MG TAB PO SCH (08:12)
[2019-11-09] MEDS: ASPIRIN 325 MG TAB PO SCH (08:12)
[2019-11-09] MEDS: HEPARIN SODIUM,PORCINE 5,000 UNIT/ML 1 ML VIAL SQ SCH (08:12)
[2019-11-09] MEDS: METOPROLOL TARTRATE 25 MG TAB PO SCH (08:12)
[2019-11-09] MEDS: MIRTAZAPINE 15 MG TAB PO SCH (08:13)
--- NOTE | 2019-11-09 10:01 | P.DS ---
Providers Date of admission: 11/06/19 16:28 Expected date of discharge: 11/09/19 Attending physician: Vanessa Martin DO Consults: 11/07/19 07:57 Consult Physician Routine Consulting Provider: Teresa Harris Consult Reason/Comments: stroke Do you want consulting provider notified?: Yes Primary care physician: Micki Villalobos [facility] Course: This is a 89-year-old female with past medical history noted below significant for underlying dementia who presented to the ER with altered mental status and was found to have a subacute stroke as noted below. Patient was admitted to the hospital for further management of her medical problems noted below. Her overall condition and prognosis appears very poor. Goals of care discussed with her son Lion about palliative care and he wished to pursue comfort measures and hospice. He had a meeting with the hospice team. Patient will be discharged back to her nursing home under hospice. Because of list of her medical problems addressed during this hospitalization. 1. 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 Neurology consulted, appreciate recommendations. Continue aspirin daily. No need for MRI at this time per neurology. Patient had a negative MRA of the neck in June 2019. Also had a carotid Doppler in June showing no hemodynamically significant stenosis. Echocardiogram in June showed preserved ejection fraction with no intracardiac source for possible stroke. repeat echocardiogram and Doppler ordered by neurology. 2. Hypovolemic hyponatremia: Most likely secondary to poor by mouth intake and Lasix use. Hold Lasix/ Sodium level improving gradually 3. Acute on chronic kidney disease, most likely secondary to Lasix use as well as Bactrim. Hold nephrotoxics. 4. Essential hypertension: Blood pressure within acceptable range. Continue home dose of amlodipine 5. History of recurrent UTIs, just finished course of Bactrim. Urinalysis in the ER appeared normal 6. Underlying dementia/cognitive impairment 7. Type 2 diabetes, hold oral agent and continue sliding scale insulin 8. Acute toxo metabolic encephalopathy, secondary to EDUARDO, hyponatremia, and subacute stroke. 9. CODE STATUS: Discussed with the patient's son at bedside. Patient is DO NOT RESUSCITATE/DO NOT INTUBATE Patient Condition at Discharge: Poor Plan - Discharge Summary Discharge Rx Participant: No New Discharge Prescriptions: New amLODIPine [Norvasc] 2.5 mg PO QAM tab Continue Metoprolol Tartrate [Lopressor] 12.5 mg PO QAM Aspirin [[place] Aspirin EC] 81 mg PO DAILY Mirtazapine [Remeron] 15 mg PO QAM Ondansetron HCl [Zofran] 4 mg PO QAM Discontinued Furosemide [Lasix] 10 mg PO QAM Pioglitazone [Actos] 15 mg PO QAM Cyanocobalamin (Vitamin B-12) [Vitamin B-12] 2,500 mcg PO DAILY Cranberry 15,000mg 1 tab PO DAILY Pravastatin Sodium [Pravachol] 20 mg PO DAILY Sulfamethox-Tmp 800-160Mg [Bactrim DS 800-160 mg] 1 tab PO BID Potassium Chloride 20 meq PO DAILY Discharge Medication List Metoprolol Tartrate [Lopressor] 12.5 mg PO QAM 07/26/19 [History] Aspirin [[place] Aspirin EC] 81 mg PO DAILY 11/06/19 [History] Mirtazapine [Remeron] 15 mg PO QAM 11/06/19 [History] Ondansetron HCl [Zofran] 4 mg PO QAM 11/06/19 [History] amLODIPine [Norvasc] 2.5 mg PO QAM tab 11/09/19 [Rx] Follow up Appointment(s)/Referral(s): Micki Villalobos MD [Primary Care Provider] - 1-2 days Discharge Disposition: DISCH TO [facility]
[2019-11-09 12:21] VITALS: BP 116/55; PULSE 114
--- NOTE | 2019-11-09 13:35 | P.PN ---
Subjective Progress Note Date: 11/09/19 The patient was not responsive to the primary team nursing staff. Primary team contacted the patient's son and it was decided that the patient would go into hospice. Upon seeing the patient in the morning she was initially sleeping but she was responsive to me and that denied of any weakness. She didn't know where she was. Objective - Vital Signs Vital signs: Vital Signs Temp 98.6 F 11/09/19 04:07 Pulse 114 H 11/09/19 12:00 Resp 16 11/09/19 12:00 BP 116/55 11/09/19 12:00 Pulse Ox 97 11/09/19 04:07 Intake & Output 11/08/19 11/09/19 11/09/19 18:59 06:59 18:59 Weight 50 kg 50 kg Other: Voiding Method Diaper Diaper # Voids 2 2 2 # Bowel Movements 1 - Exam Neurological exam The patient is drowsy but awake to voice. Patient the oriented to self and correctly stated that the current year. She was not oriented to place. She was following the few simple commands. She able to correctly name the watch pen. No aphasia and no neglect. Cranial nerves: The pupils were round equal around 3 mm bilaterally reactive to light. Visual soto are full to threat throughout. Extraocular movements patient was tracting throughout the room and no nystagmus is noted that. Is visual sensation was normal to touch throughout. The patient had right lower facial droop. No dysarthria. Motor gait was deferred. The strength the patient was moving all extremities above gravity and there is no focality noted. There was a lack of cooperation the to assess the strength. Sensation sensation was normal to touch throughout. Reflexes is 2 positive throughout except at ankles were trace bilaterally. The plantars are upgoing bilaterally. - Labs CBC & Chem 7: 11/09/19 05:52 11/09/19 05:52 Labs: Abnormal Lab Results - Last 24 Hours (Table) 11/08/19 11/09/19 11/09/19 Range/Units 20:30 05:52 05:52 RBC 2.60 L (3.80-5.40) m/uL Hgb 7.7 L (11.4-16.0) gm/dL Hct 24.4 L (34.0-46.0) % Lymphocytes # 0.5 L (1.0-4.8) k/uL Sodium 134 L (137-145) mmol/L BUN 30 H (7-17) mg/dL Creatinine 2.02 H (0.52-1.04) mg/dL Glucose 48 L* (74-99) mg/dL POC Glucose (mg/dL) 71 L (75-99) mg/dL Calcium 7.6 L (8.4-10.2) mg/dL 11/09/19 11/09/19 11/09/19 Range/Units 06:07 06:34 06:56 RBC (3.80-5.40) m/uL Hgb (11.4-16.0) gm/dL Hct (34.0-46.0) % Lymphocytes # (1.0-4.8) k/uL Sodium (137-145) mmol/L BUN (7-17) mg/dL Creatinine (0.52-1.04) mg/dL Glucose (74-99) mg/dL POC Glucose (mg/dL) 66 L 65 L 167 H (75-99) mg/dL Calcium (8.4-10.2) mg/dL Microbiology - Last 24 Hours (Table) 11/06/19 14:12 Blood Culture - Preliminary Blood No Growth after 48 hours Assessment and Plan Assessment: This is an 89-year-old female with the medical history of hypertension and underlying cognitive impairment, possible seizure disorder, diabetes, hyperlipidemia who resides in assisted living facility and that presented to the emergency department on 11/06/2019 because of frequent falls and altered mental status. CT head showed subacute left parietal stroke. Subacute stroke (left parietal) Toxic-metabolic Encephalopathy (Hyponatremia, acute kidney injury on chronic kidney insufficiency, hypocalcemia) Hyponatremia Possible history of seizure disorder (per medical records) EDUARDO on CKI HTN Plan: Regarding her stroke the CT of the head that shows a left subacute parietal which is new compared to her previous image. There is no need to get MRI the brain as since the its already seen on the CT of the head. carotid duplex: No hemodynamically significant stenosis bilaterally. 2-D echocardiogram: Left ventricle size is normal. Moderate concentric left ventricular hypertrophy. Ejection fraction 55-60%. Aneurys interatrial septum. Currently she is on aspirin 325 mg and Lipitor 80 mg. I decrease the Lipitor from 80 mg to 40 mg. TSH is 1.94. Lipid profile the triglyceride is 153. Cholesterol is 156. LDL is 66. HDL is 59. Hemoglobin A1c is 6.1 PT OT is consulted. Regarding her possible seizure disorder that was reported in previous reports her previous EEGs noted, showed that at any seizure or any apple plum discharges. Per Dr. Gonzalez's note he mentioned that that he recommended the patient to be on Vimpat 100 mg twice a day. He mentions that that she was on Keppra but the was having side effects from it was having behavioral issues. Per primary team he stated that according to patient's son, patient followed-up with Neurologist as outpatient and he discontinued her on the medication. I attempted to contact the patient's son but no response. Upon getting more information from the son then they'll decide whether to start her on a seizure medication or not in the meantime since she's been off of seizure medication I'll hold off. Routine EEG 11/08/2019: Abnormal routine awake and drowsy EEG suggestive of mild encephalopathy of on specimen etiology. There is no focal swelling no interictal a seizure activity during the study. There is significant myogenic artifact over the bilateral temporal region throughout the study. I will not restart the patient on seizure medication and I'll defer it to be addressed as an outpatient by the neurologist as seems like she was already on seizure medication but she should this was held. If the patient that has a further episode of seizure recommend the restart seizure medication. Calcium on presentation was 8.3 repeated is 7.9. Ionized calcium: 7.6. Regarding the patient's hyponatremia recommend treating it slowly. Last the vitamin B12 on the record and was more than 4000 on 09/28/2019. The folate was 6.4 also on the same date. There is no need to repeat it. We'll defer the electrolyte imbalance correction down to the primary team. The patient family make patient hospice. Rolly Perry M.D. Neuro-hospitalist. Time with Patient: Less than 30
--- NOTE | 2019-11-10 21:58 | CDI ---
Documentation Clarification Form Date: 11/11/2019 From: Ashok Puri Phone: If you have a question about this query, please contact Jacquelyn Masterson Al[employer]izer at [phone] between 8am and 5pm. Admit Date: 11/06/2019 Discharge Date: 11/09/2019 Patient Name: Flory Sims Visit Number: [id number] ATTENTION: The Clinical Documentation Specialists (CDI) and [facility] Coding Staff appreciate your assistance in clarifying documentation. Please respond to the clarification below the line at the bottom and electronically sign. The CDI & [facility] Coding staff will review the response and follow-up if needed. Please note: Queries are made part of the Legal Health Record. If you have any questions, please contact the author of this message via ITS. Dear Marley Rubalcava MD., Acute on chronic kidney disease, most likely secondary to Lasix use as well as Bactrim. Hold nephrotoxics CKD is documented in your notes as "Acute on chronic kidney disease". History/Risk Factors: CHF, HTN Clinical Indicators: EDUARDO Current BUN/CR/GFR " on admission "33H/ 2.5H/ 16" Treatment:Hold nephrotoxics. EDUARDO on CKD In order to capture the severity of condition, please clarify the stage of the CKD, if known: CKD Stage 1 (GFR > 90) CKD Stage 2 (GFR 60-89) CKD Stage 3 (GFR 30-59) CKD Stage 4 (GFR 15-29) CKD Stage 5 (GFR <15) ESRD Other, please specify Unable to determine MTDD
--- NOTE | 2019-11-16 21:26 | CDI ---
Documentation Clarification Form Date: 11/17/2019 From: Ashok Puri Phone: If you have a question about this query, please contact Jacquelyn Masterson Geropsychologist at [phone] between 8am and 5pm. Admit Date: 11/06/2019 Discharge Date: 11/09/2019 Patient Name: Flory Sims Visit Number: [id number] ATTENTION: The Clinical Documentation Specialists (CDI) and [facility] Coding Staff appreciate your assistance in clarifying documentation. Please respond to the clarification below the line at the bottom and electronically sign. The CDI & [facility] Coding staff will review the response and follow-up if needed. Please note: Queries are made part of the Legal Health Record. If you have any questions, please contact the author of this message via ITS. Dear Marley Rubalcava MD., Acute on chronic kidney disease, most likely secondary to Lasix use as well as Bactrim. Hold nephrotoxics CKD is documented in your notes as "Acute on chronic kidney disease". History/Risk Factors: CHF, HTN, CVA, Toxic encephalopathy Clinical Indicators: EDUARDO Current BUN/CR/GFR " on admission "33H/ 2.5H/ 16" Treatment:Hold nephrotoxics. EDUARDO on CKD In order to capture the severity of condition, please clarify the stage of the CKD, if known: CKD Stage 1 (GFR > 90) CKD Stage 2 (GFR 60-89) CKD Stage 3 (GFR 30-59) CKD Stage 4 (GFR 15-29) CKD Stage 5 (GFR <15) ESRD Other, please specify Unable to determine MTDD
== END 2019-11-09 13:05 | disposition hospice, home (50) | DRG 64 ==
LOC: SUPCPDRO 13:53 → EC 13:53 → 3SCARD 16:28
PROVIDERS: ADMIT Internal Medicine; ATTEND Internal Medicine
DX: I63.9 Cerebral infarction, unspecified (principal); G92 Toxic encephalopathy; E87.1 Hypo-osmolality and hyponatremia; N17.9 Acute kidney failure, unspecified; I13.0 Hypertensive heart and chronic kidney disease with heart failure and stage 1 through stage 4 chronic kidney disease, or unspecified chronic kidney disease; E11.22 Type 2 diabetes mellitus with diabetic chronic kidney disease; N18.9 Chronic kidney disease, unspecified; R40.2143 Coma scale, eyes open, spontaneous, at hospital admission; R40.2363 Coma scale, best motor response, obeys commands, at hospital admission; R40.2243 Coma scale, best verbal response, confused conversation, at hospital admission; J44.9 Chronic obstructive pulmonary disease, unspecified; E78.5 Hyperlipidemia, unspecified; M19.90 Unspecified osteoarthritis, unspecified site; Z66 Do not resuscitate; Z51.5 Encounter for palliative care; I50.9 Heart failure, unspecified; G40.909 Epilepsy, unspecified, not intractable, without status epilepticus; I44.0 Atrioventricular block, first degree; D64.9 Anemia, unspecified; R29.6 Repeated falls; F03.90 Unspecified dementia, unspecified severity, without behavioral disturbance, psychotic disturbance, mood disturbance, and anxiety; R41.89 Other symptoms and signs involving cognitive functions and awareness; E86.1 Hypovolemia; E83.51 Hypocalcemia; T50.1X5A Adverse effect of loop [high-ceiling] diuretics, initial encounter; Z87.440 Personal history of urinary (tract) infections; Z87.891 Personal history of nicotine dependence; Z86.73 Personal history of transient ischemic attack (TIA), and cerebral infarction without residual deficits; Z86.19 Personal history of other infectious and parasitic diseases; Z79.82 Long term (current) use of aspirin; Z79.899 Other long term (current) drug therapy; Z90.710 Acquired absence of both cervix and uterus; Z98.890 Other specified postprocedural states
CPT/HCPCS: 36415; 51701; 70450; 71046; 80048; 80051; 80053; 80061; 81001; 82330; 82550; 83036; 83605; 83735; 83880; 84443; 84484; 85025; 85610; 87040; 93005; 93306; 93880; 95819; 96360; 99285